=== PATIENT | female | born 2000 | race African-American/Black ===

== ENCOUNTER 2019-12-23 13:42 | Emergency (ER) | payer MEDICAID ==
[2019-12-23] MEDS ORDERED: Ondansetron 4 MG/2 ML SDV IVPUSH ONE (14:40)
[2019-12-23] MEDS ORDERED: Famotidine 20 MG/2 ML SDV IVPUSH ONE (14:40)
[2019-12-23] MEDS ORDERED: Sodium Chloride 0.9% 10 ML Syringe FLUSH PRN (14:40)
--- NOTE | 2019-12-23 14:44 | EDM.PDOC ---
ED HPI GENERAL MEDICAL PROBLEM - General Chief Complaint: Gastrointestinal Problem Stated Complaint: VOMTING/STOMACH PAIN Time Seen by Provider: 12/23/19 14:10 Source of Information: Reports: Patient History Limitations: Reports: No Limitations - History of Present Illness INITIAL COMMENTS - FREE TEXT/NARRATIVE: Patient is a 19-year-old female who presents with complaints of abdominal pain, vomiting, and watery diarrhea. She states that she has had intermittent symptoms of this over the last few weeks, with this episode of worsening symptoms starting 2 nights ago.. She does have epigastric abdominal pain. She states the just recently drove here from [place] and did not have a lot of fluids in the house. She has been drinking juices such as cranberry juice and orange juice. She did have a fever of 103.7 at home last night. She took ibuprofen for that as well as a shower and fever resolved. She is afebrile in the ER today and has not taken any medications thus far today. She is had no respiratory symptoms. She does complain of heartburn. States she has vomited 3 times today and it was bilious in nature. Epigastric Pain Score (Numeric/FACES): 5 - Related Data Allergies Allergy/AdvReac Type Severity Reaction Status Date / Time nitrofurantoin Allergy Hives Verified 12/23/19 14:05 [From Macrobid] shellfish derived Allergy Facial Verified 12/23/19 14:05 Swelling Home Meds: Home Meds . [No Known Home Meds] 12/23/19 [History] Past Medical History - Past Health History Medical/Surgical History: Denies Medical/Surgical History Social & Family History - Tobacco Use Smoking Status *Q: Never Smoker - Recreational Drug Use Recreational Drug Use: No ED ROS GENERAL - Review of Systems Review Of Systems: Comprehensive ROS is negative, except as noted in HPI. ED EXAM, GI/ABD - Physical Exam Exam: See Below Exam Limited By: No Limitations General Appearance: Alert, WD/WN, No Apparent Distress Respiratory/Chest: No Respiratory Distress, Lungs Clear, Normal Breath Sounds, No Accessory Muscle Use, Chest Non-Tender Cardiovascular: Normal Peripheral Pulses, Regular Rate, Rhythm, No Edema, No Gallop, No JVD, No Murmur, No Rub GI/Abdominal Exam: Normal Bowel Sounds, Soft, No Organomegaly, No Distention, No Abnormal Bruit, No Mass, Pelvis Stable, Tender (Epigastric tenderness). No: Guarding, Rigid, Rebound Neurological: Alert, Oriented, CN II-XII Intact, Normal Cognition, Normal Gait, Normal Reflexes, No Motor/Sensory Deficits Psychiatric: Normal Affect, Normal Mood Skin Exam: Warm, Dry, Intact, Normal Color, No Rash Course - Vital Signs Last Recorded V/S: Last Vital Signs Temp 98.1 F 12/23/19 14:01 Pulse 69 12/23/19 14:01 Resp 16 12/23/19 14:01 BP 124/67 12/23/19 14:01 Pulse Ox 99 12/23/19 14:01 - Orders/Labs/Meds Orders: Active Orders 24 hr Category Date Time Status Peripheral IV Care [RC] . DIRECTED Care 12/23/19 14:40 Active Sodium Chloride 0.9% [Normal Saline] 1,000 ml Med 12/23/19 14:45 Active IV ASDIRECTED Sodium Chloride 0.9% [Saline Flush] Med 12/23/19 14:40 Active 10 ml FLUSH ASDIRECTED PRN Peripheral IV Insertion Adult [OM.PC] Stat Oth 12/23/19 14:39 Ordered Medication Orders Sodium Chloride (Normal Saline) 1,000 mls @ 999 mls/hr IV ASDIRECTED PATY Last Admin: 12/23/19 15:06 Dose: 999 mls/hr Sodium Chloride (Saline Flush) 10 ml FLUSH ASDIRECTED PRN PRN Reason: Keep Vein Open Last Admin: 12/23/19 15:06 Dose: 10 ml Labs: Laboratory Tests 12/23/19 12/23/19 12/23/19 Range/Units 14:00 14:00 15:05 WBC 5.55 (3.98-10.04) K/mm3 RBC 4.17 (3.98-5.22) M/mm3 Hgb 11.6 (11.2-15.7) gm/dl Hct 36.3 (34.1-44.9) % MCV 87.1 (79.4-94.8) fl MCH 27.8 (25.6-32.2) pg MCHC 32.0 L (32.2-35.5) g/dl RDW Std Deviation 48.6 H (36.4-46.3) fL Plt Count 338 (182-369) K/mm3 MPV 9.9 (9.4-12.3) fl Neut % (Auto) 47.4 (34.0-71.1) % Lymph % (Auto) 45.9 (19.3-51.7) % [place] % (Auto) 4.9 (4.7-12.5) % Eos % (Auto) 1.6 (0.7-5.8) Baso % (Auto) 0.2 (0.1-1.2) % Neut # (Auto) 2.63 (1.56-6.13) K/mm3 Lymph # (Auto) 2.55 (1.18-3.74) K/mm3 [place] # (Auto) 0.27 (0.24-0.36) K/mm3 Eos # (Auto) 0.09 (0.04-0.36) K/mm3 Baso # (Auto) 0.01 (0.01-0.08) K/mm3 Manual Slide Review Abnormal smear Sodium (136-145) mEq/L Potassium (3.5-5.1) mEq/L Chloride (98-107) mEq/L Carbon Dioxide (21-32) mEq/L Anion Gap (5-15) BUN (7-18) mg/dL Creatinine (0.55-1.02) mg/dL Est Cr Clr Drug Dosing mL/min Estimated GFR (MDRD) (>60) mL/min BUN/Creatinine Ratio (14-18) Glucose (74-106) mg/dL Calcium (8.5-10.1) mg/dL Total Bilirubin (0.2-1.0) mg/dL AST (15-37) U/L ALT (14-59) U/L Alkaline Phosphatase (46-116) U/L C-Reactive Protein (<1.0) mg/dL Total Protein (6.4-8.2) g/dl Albumin (3.4-5.0) g/dl Globulin gm/dL Albumin/Globulin Ratio (1-2) Lipase (73-393) U/L Urine Color Yellow (Yellow) Urine Appearance Clear (Clear) Urine pH 7.0 (5.0-8.0) Ur Specific [place] 1.025 (1.005-1.030) Urine Protein Negative (Negative) Urine Glucose (UA) Negative (Negative) Urine Ketones Negative (Negative) Urine Occult Blood Negative (Negative) Urine Nitrite Negative (Negative) Urine Bilirubin Negative (Negative) Urine Urobilinogen 2.0 H (0.2-1.0) Ur Leukocyte Esterase Negative (Negative) Urine RBC 0-5 (0-5) /hpf Urine WBC 0-5 (0-5) /hpf Ur Epithelial Cells 0-5 (0-5) /hpf Urine Bacteria Moderate H (FEW) /hpf Urine Mucus Moderate H (FEW) /hpf Urine HCG, Qual Negative (NEGATIVE) 12/23/19 Range/Units 15:05 WBC (3.98-10.04) K/mm3 RBC (3.98-5.22) M/mm3 Hgb (11.2-15.7) gm/dl Hct (34.1-44.9) % MCV (79.4-94.8) fl MCH (25.6-32.2) pg MCHC (32.2-35.5) g/dl RDW Std Deviation (36.4-46.3) fL Plt Count (182-369) K/mm3 MPV (9.4-12.3) fl Neut % (Auto) (34.0-71.1) % Lymph % (Auto) (19.3-51.7) % [place] % (Auto) (4.7-12.5) % Eos % (Auto) (0.7-5.8) Baso % (Auto) (0.1-1.2) % Neut # (Auto) (1.56-6.13) K/mm3 Lymph # (Auto) (1.18-3.74) K/mm3 [place] # (Auto) (0.24-0.36) K/mm3 Eos # (Auto) (0.04-0.36) K/mm3 Baso # (Auto) (0.01-0.08) K/mm3 Manual Slide Review Sodium 142 (136-145) mEq/L Potassium 3.8 (3.5-5.1) mEq/L Chloride 104 (98-107) mEq/L Carbon Dioxide 28 (21-32) mEq/L Anion Gap 13.8 (5-15) BUN 11 (7-18) mg/dL Creatinine 0.9 (0.55-1.02) mg/dL Est Cr Clr Drug Dosing 96.15 mL/min Estimated GFR (MDRD) > 60 (>60) mL/min BUN/Creatinine Ratio 12.2 L (14-18) Glucose 94 (74-106) mg/dL Calcium 8.6 (8.5-10.1) mg/dL Total Bilirubin 0.3 (0.2-1.0) mg/dL AST 18 (15-37) U/L ALT 33 (14-59) U/L Alkaline Phosphatase 72 (46-116) U/L C-Reactive Protein 2.4 H* (<1.0) mg/dL Total Protein 8.4 H (6.4-8.2) g/dl Albumin 3.5 (3.4-5.0) g/dl Globulin 4.9 gm/dL Albumin/Globulin Ratio 0.7 L (1-2) Lipase 92 (73-393) U/L Urine Color (Yellow) Urine Appearance (Clear) Urine pH (5.0-8.0) Ur Specific [place] (1.005-1.030) Urine Protein (Negative) Urine Glucose (UA) (Negative) Urine Ketones (Negative) Urine Occult Blood (Negative) Urine Nitrite (Negative) Urine Bilirubin (Negative) Urine Urobilinogen (0.2-1.0) Ur Leukocyte Esterase (Negative) Urine RBC (0-5) /hpf Urine WBC (0-5) /hpf Ur Epithelial Cells (0-5) /hpf Urine Bacteria (FEW) /hpf Urine Mucus (FEW) /hpf Urine HCG, Qual (NEGATIVE) Meds: Medications Generic Name Dose Route Start Last Admin Trade Name Freq PRN Reason Stop Dose Admin Sodium Chloride 1,000 mls @ 999 mls/hr 12/23/19 14:45 12/23/19 15:06 Normal Saline IV 999 mls/hr ASDIRECTED PATY Administration Sodium Chloride 10 ml 12/23/19 14:40 12/23/19 15:06 Saline Flush FLUSH 10 ml ASDIRECTED PRN Administration Keep Vein Open Discontinued Medications Generic Name Dose Route Start Last Admin Trade Name Freq PRN Reason Stop Dose Admin Famotidine 20 mg 12/23/19 14:40 12/23/19 15:10 Pepcid IVPUSH 12/23/19 14:41 20 mg ONETIME ONE Administration Ondansetron HCl 4 mg 12/23/19 14:40 12/23/19 15:06 Zofran IVPUSH 12/23/19 14:41 4 mg ONETIME ONE Administration - Re-Assessments/Exams Free Text/Narrative Re-Assessment/Exam: 12/23/19 15:50 Patient's work-up was grossly unremarkable. Hematology was normal. Abdomen x- ray showed a small calcification in the right pelvis, however patient has had no symptoms that would be consistent with that of a kidney stone. Urinalysis did not have any "blood present. There is no urinary tract infection. Discussed with patient that she is likely suffering from a viral gastroenteritis. Recommend clear liquid diet for the next 24 hours and then advance as tolerated. I will send a prescription for Zofran to [place] [facility] and [facility]. She will pick this up tomorrow. Discharge instructions as documented. Departure - Departure Time of Disposition: 15:51 Disposition: Home, Self-Care 01 Condition: Fair Clinical Impression: Gastroenteritis - Discharge Information *PRESCRIPTION DRUG MONITORING PROGRAM REVIEWED*: No *COPY OF PRESCRIPTION DRUG MONITORING REPORT IN PATIENT TAI: No Instructions: Viral Gastroenteritis, Adult, [id number] Forms: ED Department Discharge, ED Return to Work/School Form Additional Instructions: You were seen in the emergency department today for nausea, vomiting, and upper abdominal pain. Your work-up included a urinalysis, blood work, and an x-ray of your abdomen. Your work-up was found to be normal. As we discussed you are likely suffering from a viral gastroenteritis. Recommend a clear liquid diet for the next 24 to 48 hours and then advance as tolerated. I would avoid any fruit juice or dairy products until your symptoms have completely resolved. A prescription for Zofran for nausea has been sent to [place] [facility] in [facility]. Use this medication as needed for any nausea. If you continue to have these symptoms intermittently, I would recommend that you follow-up with a primary care provider in the clinic for ongoing management. The number to schedule an appointment with them is [phone]. Return to the ER as needed. Sepsis Event Note - Evaluation Sepsis Screening Result: No Definite Risk - Focused Exam Vital Signs: Vital Signs Temp Pulse Resp BP Pulse Ox 12/23/19 14:01 98.1 F 69 16 124/67 99 Date Exam was Performed: 12/23/19 Time Exam was Performed: 15:50 - My Orders Last 24 Hours: My Active Orders 12/23/19 14:39 Peripheral IV Insertion Adult [OM.PC] Stat 12/23/19 14:40 Peripheral IV Care [RC] . DIRECTED Sodium Chloride 0.9% [Saline Flush] 10 ml FLUSH ASDIRECTED PRN 12/23/19 14:45 Sodium Chloride 0.9% [Normal Saline] 1,000 ml IV ASDIRECTED - Assessment/Plan Last 24 Hours: My Active Orders 12/23/19 14:39 Peripheral IV Insertion Adult [OM.PC] Stat 12/23/19 14:40 Peripheral IV Care [RC] . DIRECTED Sodium Chloride 0.9% [Saline Flush] 10 ml FLUSH ASDIRECTED PRN 12/23/19 14:45 Sodium Chloride 0.9% [Normal Saline] 1,000 ml IV ASDIRECTED
[2019-12-23] MEDS ORDERED: Sodium Chloride 0.9% 1,000 ML IV SCH (14:45)
--- NOTE | 2019-12-23 15:38 | CR ---
Abdomen: Supine and upright views the abdomen were obtained. Bowel gas pattern appears normal. Small calcification is seen within the right pelvis. Please correlate if patient has any symptoms of obstructing ureteral stone. No soft tissue abnormality is seen. Bony structures are unremarkable. Impression: 1. Small calcification within the right pelvis. Please correlate if patient has any symptoms of obstructing ureteral stone. 2. 2 view abdominal study is otherwise unremarkable. Diagnostic code #2 Study was dictated in MDT
== END 2019-12-23 16:25 | disposition home or self-care (01) ==
LOC: JD.ED 13:42
DX: K52.9 Noninfective gastroenteritis and colitis, unspecified (principal); Z91.013 Allergy to seafood; Z88.5 Allergy status to narcotic agent
CPT/HCPCS: 36415; 74019; 80053; 81001; 81025; 83690; 85025; 86140; 96361; 96374; 96375; 99284; J2405; J3490; J7030

== ENCOUNTER 2020-03-21 00:31 | Emergency (ER) | payer SELFPAY ==
--- NOTE | 2020-03-21 02:11 | EDM.PDOC ---
ED HPI GENERAL MEDICAL PROBLEM - General Chief Complaint: General Stated Complaint: THROWING UP AND RING STUCK ON RIGHT HAND Time Seen by Provider: 03/21/20 00:57 Source of Information: Reports: Patient History Limitations: Reports: No Limitations - History of Present Illness INITIAL COMMENTS - FREE TEXT/NARRATIVE: TRIAGE NOTE -- pt has her ring stuck to her right ring finger, she was trying to take it out but unsuccessful. pt also c/o on and off abdominal pain to LLQ associated with nausea & vomiting, [ End ] Patient says while she was waiting to be seen for her ring stuck on her right hand that she wished to be evaluated for abdominal pain which is been bothering her for the past week or so. There is occasional nausea and vomiting associated with it. The pain complained of seems more like discomfort. No risk factors identified. Non-smoker. No previous surgeries. No medications or underlying conditions that are identified. She has not had any treatment or evaluation or any measure to moderate symptoms prior to arrival. Left Lower Abdomen Pain Score (Numeric/FACES): 5 - Related Data Allergies Allergy/AdvReac Type Severity Reaction Status Date / Time nitrofurantoin Allergy Severe Hives Verified 03/21/20 00:46 [From Macrobid] nut - unspecified Allergy Severe Bronchospas Verified 03/21/20 00:47 ms shellfish derived Allergy Severe Facial Verified 03/21/20 00:46 Swelling Home Meds: Home Meds . [No Known Home Meds] 12/23/19 [History] Past Medical History - Past Health History Medical/Surgical History: Denies Medical/Surgical History Genitourinary History: Reports: UTI, Recurrent Social & Family History - Tobacco Use Smoking Status *Q: Never Smoker - Recreational Drug Use Recreational Drug Use: No ED ROS GENERAL - Review of Systems Review Of Systems: Comprehensive ROS is negative, except as noted in HPI. ED EXAM, GENERAL - Physical Exam Exam: See Below Exam Limited By: No Limitations General Appearance: Alert, WD/WN, No Apparent Distress Eye Exam: Bilateral Eye: EOMI, PERRL Ears: Normal External Exam Nose: Normal Inspection Throat/Mouth: Normal Inspection Head: Atraumatic, Normocephalic Respiratory/Chest: No Respiratory Distress, Lungs Clear, Normal Breath Sounds Cardiovascular: Regular Rate, Rhythm GI/Abdominal: Soft, Tender (Mild diffuse tenderness right lower abdomen). No: Guarding, Rigid, Rebound Back Exam: Normal Inspection Extremities: Normal Inspection (Except for ring on the right fourth finger with some very mild edema distally otherwise the digit is normal.) Neurological: Alert, Oriented, Normal Cognition, No Motor/Sensory Deficits Psychiatric: Normal Affect, Normal Mood Skin Exam: Warm, Dry Course - Vital Signs Last Recorded V/S: Last Vital Signs Temp 36.4 C 03/21/20 00:42 Pulse 77 03/21/20 00:42 Resp 16 03/21/20 00:42 BP 102/69 03/21/20 00:42 Pulse Ox 98 03/21/20 00:42 - Orders/Labs/Meds Orders: Active Orders 24 hr Category Date Time Status CULTURE URINE [RM] Stat Lab 03/21/20 01:03 Received Labs: Laboratory Tests 03/21/20 03/21/20 03/21/20 Range/Units 01:03 01:03 01:32 WBC 8.56 (3.98-10.04) K/mm3 RBC 4.33 (3.98-5.22) M/mm3 Hgb 11.7 (11.2-15.7) gm/dl Hct 37.0 (34.1-44.9) % MCV 85.5 (79.4-94.8) fl MCH 27.0 (25.6-32.2) pg MCHC 31.6 L (32.2-35.5) g/dl RDW Std Deviation 51.8 H (36.4-46.3) fL Plt Count 397 H (182-369) K/mm3 MPV 9.8 (9.4-12.3) fl Neutrophils % (Manual) 61 H (40-60) % Band Neutrophils % 0 (0-10) % Lymphocytes % (Manual) 37 (20-40) % Atypical Lymphs % 0 % Monocytes % (Manual) 1 L (2-10) % Eosinophils % (Manual) 1 (0.7-5.8) % Basophils % (Manual) 0 L (0.1-1.2) Platelet Estimate Adequate RBC Morph Comment Normal Sodium (136-145) mEq/L Potassium (3.5-5.1) mEq/L Chloride (98-107) mEq/L Carbon Dioxide (21-32) mEq/L Anion Gap (5-15) BUN (7-18) mg/dL Creatinine (0.55-1.02) mg/dL Est Cr Clr Drug Dosing mL/min Estimated GFR (MDRD) (>60) mL/min BUN/Creatinine Ratio (14-18) Glucose (74-106) mg/dL Calcium (8.5-10.1) mg/dL Total Bilirubin (0.2-1.0) mg/dL AST (15-37) U/L ALT (14-59) U/L Alkaline Phosphatase (46-116) U/L Total Protein (6.4-8.2) g/dl Albumin (3.4-5.0) g/dl Globulin gm/dL Albumin/Globulin Ratio (1-2) Lipase (73-393) U/L Urine Color Yellow (Yellow) Urine Appearance Clear (Clear) Urine pH 7.0 (5.0-8.0) Ur Specific [place] 1.025 (1.005-1.030) Urine Protein Negative (Negative) Urine Glucose (UA) Negative (Negative) Urine Ketones Negative (Negative) Urine Occult Blood Negative (Negative) Urine Nitrite Negative (Negative) Urine Bilirubin Negative (Negative) Urine Urobilinogen 0.2 (0.2-1.0) Ur Leukocyte Esterase 1+ H (Negative) Urine RBC 5-10 H (0-5) /hpf Urine WBC 50-75 H (0-5) /hpf Ur Epithelial Cells 0-5 (0-5) /hpf Urine Bacteria Few (FEW) /hpf Urine Mucus Few (FEW) /hpf Urine HCG, Qual Negative (NEGATIVE) 03/21/20 Range/Units 01:32 WBC (3.98-10.04) K/mm3 RBC (3.98-5.22) M/mm3 Hgb (11.2-15.7) gm/dl Hct (34.1-44.9) % MCV (79.4-94.8) fl MCH (25.6-32.2) pg MCHC (32.2-35.5) g/dl RDW Std Deviation (36.4-46.3) fL Plt Count (182-369) K/mm3 MPV (9.4-12.3) fl Neutrophils % (Manual) (40-60) % Band Neutrophils % (0-10) % Lymphocytes % (Manual) (20-40) % Atypical Lymphs % % Monocytes % (Manual) (2-10) % Eosinophils % (Manual) (0.7-5.8) % Basophils % (Manual) (0.1-1.2) Platelet Estimate RBC Morph Comment Sodium 138 (136-145) mEq/L Potassium 3.8 (3.5-5.1) mEq/L Chloride 103 (98-107) mEq/L Carbon Dioxide 28 (21-32) mEq/L Anion Gap 10.8 (5-15) BUN 11 (7-18) mg/dL Creatinine 1.0 (0.55-1.02) mg/dL Est Cr Clr Drug Dosing 86.54 mL/min Estimated GFR (MDRD) > 60 (>60) mL/min BUN/Creatinine Ratio 11.0 L (14-18) Glucose 101 (74-106) mg/dL Calcium 8.9 (8.5-10.1) mg/dL Total Bilirubin 0.3 (0.2-1.0) mg/dL AST 23 (15-37) U/L ALT 23 (14-59) U/L Alkaline Phosphatase 66 (46-116) U/L Total Protein 8.4 H (6.4-8.2) g/dl Albumin 3.5 (3.4-5.0) g/dl Globulin 4.9 gm/dL Albumin/Globulin Ratio 0.7 L (1-2) Lipase 98 (73-393) U/L Urine Color (Yellow) Urine Appearance (Clear) Urine pH (5.0-8.0) Ur Specific [place] (1.005-1.030) Urine Protein (Negative) Urine Glucose (UA) (Negative) Urine Ketones (Negative) Urine Occult Blood (Negative) Urine Nitrite (Negative) Urine Bilirubin (Negative) Urine Urobilinogen (0.2-1.0) Ur Leukocyte Esterase (Negative) Urine RBC (0-5) /hpf Urine WBC (0-5) /hpf Ur Epithelial Cells (0-5) /hpf Urine Bacteria (FEW) /hpf Urine Mucus (FEW) /hpf Urine HCG, Qual (NEGATIVE) - Re-Assessments/Exams Free Text/Narrative Re-Assessment/Exam: 03/21/20 05:48 The patient has had an evaluation of her abdominal discomfort without any salient abnormal findings in terms of presentation, exam, or labs. She is able to be discharged to have follow-up with primary. The problem is that an effort had been made to remove a ring from the patient's right fourth finger. There had been sufficient manipulation that the distal part of the finger has become edematous. The ring is apparently steel and could not be cut. Efforts are being made to find a tool that is able to cut through the ring and it may require a search during the day shift to find something perhaps in the operating room that we will do the job. Free Text/Narrative Re-Assessment/Exam: 03/21/20 06:51 Tyrese came to the emergency department to see another patient and wanted to try taking the ring off. We are grateful to her as she was successful in removing the ring. The patient is discharged for follow-up with primary. Departure - Departure Time of Disposition: 06:52 Disposition: Home, Self-Care 01 Condition: Good Clinical Impression: Abdominal discomfort Foreign body of finger of right hand Qualifiers: Encounter type: initial encounter Qualified Code(s): S60.459A - Superficial foreign body of unspecified finger, initial encounter - Discharge Information *PRESCRIPTION DRUG MONITORING PROGRAM REVIEWED*: Not Applicable *COPY OF PRESCRIPTION DRUG MONITORING REPORT IN PATIENT TAI: Not Applicable Referrals: PCP,None [Primary Care Provider] - Forms: ED Department Discharge Additional Instructions: Been seen for abdominal discomfort and nausea. We have not come up with any abnormal findings. Please allow your primary physician to address this. Referral might be made to surgery GI or gynecology. Dr. Xiong has graciously come to the ER and was able to remove the ring. Sepsis Event Note (ED) - Evaluation Sepsis Screening Result: No Definite Risk - Focused Exam Vital Signs: Vital Signs Temp Pulse Resp BP Pulse Ox 03/21/20 00:42 36.4 C 77 16 102/69 98 - My Orders Last 24 Hours: My Active Orders 03/21/20 01:03 CULTURE URINE [RM] Stat - Assessment/Plan Last 24 Hours: My Active Orders 03/21/20 01:03 CULTURE URINE [RM] Stat
== END 2020-03-21 07:02 | disposition home or self-care (01) ==
LOC: JD.ED 00:31
DX: S60.454A Superficial foreign body of right ring finger, initial encounter (principal); R10.32 Left lower quadrant pain; Z88.1 Allergy status to other antibiotic agents; Z91.018 Allergy to other foods; Z91.013 Allergy to seafood; W45.8XXA Other foreign body or object entering through skin, initial encounter
CPT/HCPCS: 36415; 80053; 81001; 81025; 83690; 85007; 85027; 87086; 87088; 87186; 99283; 99284

== ENCOUNTER 2020-05-11 11:17 | Day surgery (SDC) | payer MEDICAID, OTHER ==
[2020-05-11] MEDS ORDERED: Sodium Chloride 0.9% 1,000 ML IV STA (12:05)
[2020-05-11] MEDS ORDERED: Ondansetron 4 MG/2 ML SDV IVPUSH ONE (12:05)
[2020-05-11] MEDS ORDERED: Sodium Chloride 0.9% 10 ML Syringe FLUSH PRN ×2 (12:05→12:45)
--- NOTE | 2020-05-11 12:09 | EDM.PDOC ---
<Cholo Matos - Last Filed: 05/11/20 12:04> ED HPI GENERAL MEDICAL PROBLEM - General Chief Complaint: Abdominal Pain Stated Complaint: VOMITING/STOMACH CRAMPS/DIZZY Time Seen by Provider: 05/11/20 11:26 Source of Information: Reports: Patient History Limitations: Reports: No Limitations - History of Present Illness INITIAL COMMENTS - FREE TEXT/NARRATIVE: Kath is a 19 YO female that presents to the ED with RLQ abdominal pain. Pain has been occurring for the past week and is constant in nature. Described as a cramping sensation and rated at a 7/10. Nothing makes the pain worse but has noted an increase during urination. Radiation to the LLQ. Other complaints at today's visit include nausea/vomiting for the past three days, multiple episodes of feeling dizzy with "floating stars" in her vision, increased frequency in urination, and an episode brownish mucous vaginal discharge three weeks ago. Vomiting is being described as yellow in color. Denies loss of consciousness, fever, chills, shortness of breath, chest pain, diarrhea, constipation, dysuria, incomplete voiding of urine, hematuria. LMP was two weeks ago and she is monogamous with her fiance. Onset: Gradual Onset Date: 05/04/20 Duration: Week(s): Location: Reports: Abdomen Quality: Reports: Ache Improves with: Reports: None Worsens with: Reports: None Lower Abdominal Pain Score (Numeric/FACES): 7 - Related Data Allergies Allergy/AdvReac Type Severity Reaction Status Date / Time nitrofurantoin Allergy Severe Hives Verified 05/11/20 11:39 [From Macrobid] nut - unspecified Allergy Severe Bronchospas Verified 05/11/20 11:39 ms shellfish derived Allergy Severe Facial Verified 05/11/20 11:39 Swelling Home Meds: Home Meds Calcium Carbonate [Tums] 2 tab PO DAILY PRN 05/11/20 [History] Past Medical History - Past Health History Medical/Surgical History: Denies Medical/Surgical History Genitourinary History: Reports: UTI, Recurrent ED ROS GENERAL - Review of Systems Review Of Systems: See Below Constitutional: Denies: Fever, Chills, Decreased Appetite HEENT: Reports: Vision Change (3-4 episodes of "seeing stars" over the last two days. ). Denies: Ear Pain, Eye Pain, Hearing Loss Respiratory: Denies: Shortness of Breath, Cough Cardiovascular: Reports: Lightheadedness. Denies: Chest Pain, Syncope GI/Abdominal: Reports: Abdominal Pain (Predominantly in RLQ), Nausea, Vomiting ( Multiple episodes in the last three days. ). Denies: Anorexia, Constipation, Diarrhea, Decreased Appetite : Reports: Discharge (Brown mucous discharge about three weeks ago. ), Frequency (Increased frequency at night.), Pain (Discomfort in suprapubic region.). Denies: Dysuria, Flank Pain, Hematuria, Irregular Menses, Urgency, Urinary Retention Neurological: Reports: Dizziness ED EXAM, GI/ABD - Physical Exam Exam: See Below Exam Limited By: No Limitations General Appearance: Alert, No Apparent Distress Head: Atraumatic, Normocephalic Respiratory/Chest: No Respiratory Distress, Lungs Clear, Normal Breath Sounds, No Accessory Muscle Use, Chest Non-Tender Cardiovascular: Regular Rate, Rhythm, No Gallop, No JVD, No Murmur, No Rub GI/Abdominal Exam: Normal Bowel Sounds, Soft, No Distention, Tender (Tenderness in RLQ.) Back Exam: No: CVA Tenderness (L), CVA Tenderness (R) Neurological: Alert, Oriented, Normal Cognition Skin Exam: Warm, Dry, Normal Color Departure - Departure Disposition: DC/Tfer to [facility] Clinical Impression: Appendicitis Qualifiers: Appendicitis type: acute appendicitis Acute appendicitis type: with localized peritonitis Appendicitis gangrene presence: without gangrene Appendicitis perforation presence: without perforation Appendicitis abscess presence: without abscess Qualified Code(s): K35.30 - Acute appendicitis with localized peritonitis, without perforation or gangrene - Discharge Information Referrals: PCP,None [Primary Care Provider] - Forms: ED Department Discharge Sepsis Event Note (ED) - Evaluation Sepsis Screening Result: No Definite Risk <Sam Merchant - Last Filed: 05/11/20 14:43> Course - Vital Signs Last Recorded V/S: Last Vital Signs Temp 96.9 F 05/11/20 11:33 Pulse 78 05/11/20 11:33 Resp 16 05/11/20 11:33 BP 126/75 05/11/20 11:33 Pulse Ox 99 05/11/20 11:33 - Orders/Labs/Meds Orders: Active Orders 24 hr Category Date Time Status Peripheral IV Care [RC] . DIRECTED Care 05/11/20 12:06 Active Ertapenem [INVanz] 1 gm Med 05/11/20 14:37 Active Sodium Chloride 0.9% [Normal Saline] 50 ml IV ONETIME HYDROmorphone [Dilaudid] Med 05/11/20 14:39 Once 0.5 mg IVPUSH ONETIME ONE Sodium Chloride 0.9% [Saline Flush] Med 05/11/20 12:05 Active 10 ml FLUSH ASDIRECTED PRN Sodium Chloride 0.9% [Saline Flush] Med 05/11/20 12:45 Active 10 ml FLUSH ONETIME PRN ED Antiemetic Medication Reflex [OM.PC] Stat Oth 05/11/20 12:06 Ordered Peripheral IV Insertion Adult [OM.PC] Stat Oth 05/11/20 12:05 Ordered Medication Orders Ertapenem 1 gm/ Sodium (Chloride) 50 mls @ 100 mls/hr IV ONETIME ONE Stop: 05/11/20 15:06 Sodium Chloride (Saline Flush) 10 ml FLUSH ASDIRECTED PRN PRN Reason: Keep Vein Open Last Admin: 05/11/20 12:40 Dose: 10 ml Documented by: KAPIL Sodium Chloride (Saline Flush) 10 ml FLUSH ONETIME PRN PRN Reason: IV FLUSH Last Admin: 05/11/20 14:06 Dose: 10 ml Documented by: STEVENSON Labs: Laboratory Tests 05/11/20 05/11/20 05/11/20 Range/Units 11:37 11:37 12:20 WBC 7.02 (3.98-10.04) K/mm3 RBC 4.33 (3.98-5.22) M/mm3 Hgb 11.5 (11.2-15.7) gm/dl Hct 36.7 (34.1-44.9) % MCV 84.8 (79.4-94.8) fl MCH 26.6 (25.6-32.2) pg MCHC 31.3 L (32.2-35.5) g/dl RDW Std Deviation 49.1 H (36.4-46.3) fL Plt Count 385 H (182-369) K/mm3 MPV 9.9 (9.4-12.3) fl Neut % (Auto) 56.0 (34.0-71.1) % Lymph % (Auto) 35.3 (19.3-51.7) % [place] % (Auto) 7.0 (4.7-12.5) % Eos % (Auto) 1.3 (0.7-5.8) Baso % (Auto) 0.3 (0.1-1.2) % Neut # (Auto) 3.93 (1.56-6.13) K/mm3 Lymph # (Auto) 2.48 (1.18-3.74) K/mm3 [place] # (Auto) 0.49 H (0.24-0.36) K/mm3 Eos # (Auto) 0.09 (0.04-0.36) K/mm3 Baso # (Auto) 0.02 (0.01-0.08) K/mm3 Sodium (136-145) mEq/L Potassium (3.5-5.1) mEq/L Chloride (98-107) mEq/L Carbon Dioxide (21-32) mEq/L Anion Gap (5-15) BUN (7-18) mg/dL Creatinine (0.55-1.02) mg/dL Est Cr Clr Drug Dosing mL/min Estimated GFR (MDRD) (>60) mL/min BUN/Creatinine Ratio (14-18) Glucose (74-106) mg/dL Calcium (8.5-10.1) mg/dL Total Bilirubin (0.2-1.0) mg/dL AST (15-37) U/L ALT (14-59) U/L Alkaline Phosphatase (46-116) U/L Total Protein (6.4-8.2) g/dl Albumin (3.4-5.0) g/dl Globulin gm/dL Albumin/Globulin Ratio (1-2) Lipase (73-393) U/L Urine Color Yellow (Yellow) Urine Appearance Clear (Clear) Urine pH 7.0 (5.0-8.0) Ur Specific [place] 1.025 (1.005-1.030) Urine Protein Negative (Negative) Urine Glucose (UA) Negative (Negative) Urine Ketones Negative (Negative) Urine Occult Blood Negative (Negative) Urine Nitrite Negative (Negative) Urine Bilirubin Negative (Negative) Urine Urobilinogen 1.0 (0.2-1.0) Ur Leukocyte Esterase Negative (Negative) Urine RBC Not seen (0-5) /hpf Urine WBC 0-5 (0-5) /hpf Ur Squamous Epith Cells 0-5 (0-5) /hpf Urine Bacteria Few (FEW) /hpf Urine Mucus Not seen (FEW) /hpf Urine HCG, Qual Negative (NEGATIVE) 05/11/20 Range/Units 12:20 WBC (3.98-10.04) K/mm3 RBC (3.98-5.22) M/mm3 Hgb (11.2-15.7) gm/dl Hct (34.1-44.9) % MCV (79.4-94.8) fl MCH (25.6-32.2) pg MCHC (32.2-35.5) g/dl RDW Std Deviation (36.4-46.3) fL Plt Count (182-369) K/mm3 MPV (9.4-12.3) fl Neut % (Auto) (34.0-71.1) % Lymph % (Auto) (19.3-51.7) % [place] % (Auto) (4.7-12.5) % Eos % (Auto) (0.7-5.8) Baso % (Auto) (0.1-1.2) % Neut # (Auto) (1.56-6.13) K/mm3 Lymph # (Auto) (1.18-3.74) K/mm3 [place] # (Auto) (0.24-0.36) K/mm3 Eos # (Auto) (0.04-0.36) K/mm3 Baso # (Auto) (0.01-0.08) K/mm3 Sodium 137 (136-145) mEq/L Potassium 3.8 (3.5-5.1) mEq/L Chloride 101 (98-107) mEq/L Carbon Dioxide 28 (21-32) mEq/L Anion Gap 11.8 (5-15) BUN 9 (7-18) mg/dL Creatinine 0.8 (0.55-1.02) mg/dL Est Cr Clr Drug Dosing 108.17 mL/min Estimated GFR (MDRD) > 60 (>60) mL/min BUN/Creatinine Ratio 11.3 L (14-18) Glucose 100 (74-106) mg/dL Calcium 9.2 (8.5-10.1) mg/dL Total Bilirubin 0.6 (0.2-1.0) mg/dL AST 16 (15-37) U/L ALT 34 (14-59) U/L Alkaline Phosphatase 75 (46-116) U/L Total Protein 8.3 H (6.4-8.2) g/dl Albumin 3.3 L (3.4-5.0) g/dl Globulin 5.0 gm/dL Albumin/Globulin Ratio 0.7 L (1-2) Lipase 74 (73-393) U/L Urine Color (Yellow) Urine Appearance (Clear) Urine pH (5.0-8.0) Ur Specific [place] (1.005-1.030) Urine Protein (Negative) Urine Glucose (UA) (Negative) Urine Ketones (Negative) Urine Occult Blood (Negative) Urine Nitrite (Negative) Urine Bilirubin (Negative) Urine Urobilinogen (0.2-1.0) Ur Leukocyte Esterase (Negative) Urine RBC (0-5) /hpf Urine WBC (0-5) /hpf Ur Squamous Epith Cells (0-5) /hpf Urine Bacteria (FEW) /hpf Urine Mucus (FEW) /hpf Urine HCG, Qual (NEGATIVE) Meds: Medications Generic Name Dose Route Start Last Admin Trade Name Freq PRN Reason Stop Dose Admin Ertapenem 1 gm/ Sodium 50 mls @ 100 mls/hr 05/11/20 14:37 Chloride IV 05/11/20 15:06 ONETIME ONE Sodium Chloride 10 ml 05/11/20 12:05 05/11/20 12:40 Saline Flush FLUSH 10 ml ASDIRECTED PRN Administration Keep Vein Open Sodium Chloride 10 ml 05/11/20 12:45 05/11/20 14:06 Saline Flush FLUSH 10 ml ONETIME PRN Administration IV FLUSH Discontinued Medications Generic Name Dose Route Start Last Admin Trade Name Freq PRN Reason Stop Dose Admin Diatrizoate Meglum/Diatrizoate Sod 120 ml 05/11/20 12:45 05/11/20 14:06 Gastrografin 37% PO 05/11/20 12:46 90 ml ONETIME ONE Administration Diphenhydramine HCl 50 mg 05/11/20 13:20 05/11/20 13:27 Benadryl IVPUSH 05/11/20 13:21 50 mg ONETIME ONE Administration Famotidine 20 mg 05/11/20 14:15 05/11/20 14:22 Pepcid IVPUSH 05/11/20 14:16 20 mg ONETIME ONE Administration Hydromorphone HCl 1 mg 05/11/20 12:07 05/11/20 13:24 Dilaudid IVPUSH 05/11/20 12:08 0.5 mg ONETIME ONE Administration Sodium Chloride 1,000 mls @ 1,000 mls/hr 05/11/20 12:05 05/11/20 12:29 Normal Saline IV 05/11/20 13:04 1,000 mls/hr .BOLUS STA Administration Iopamidol 100 ml 05/11/20 12:45 05/11/20 14:06 Isovue-300 (61%) IVPUSH 05/11/20 12:46 100 ml ONETIME ONE Administration Metoclopramide HCl 10 mg 05/11/20 13:32 05/11/20 13:46 Reglan IVPUSH 05/11/20 13:33 10 mg ONETIME ONE Administration Ondansetron HCl 4 mg 05/11/20 12:05 05/11/20 12:30 Zofran IVPUSH 05/11/20 12:06 4 mg ONETIME ONE Administration - Re-Assessments/Exams Free Text/Narrative Re-Assessment/Exam: 05/11/20 13:42 I examined the patient myself and I agree with Cholo's assessment and plan. I ordered an IV NS 1L bolus, zofran 4mg IV, dilaudid, labs UA and a CT of her abdomen and pelvis. 05/11/20 14:40 Her CBC and CMP look good. Her UA shows no UTI and her HCG is negative. Her CT shows early appendicitis. I called Dr Walton and he wanted me to give her invanz and he will come see her. She still has some pain so I ordered dilaudid 0.5mg IV. Departure - Departure Time of Disposition: 14:45 Condition: Fair Sepsis Event Note (ED) - Focused Exam Vital Signs: Vital Signs Temp Pulse Resp BP Pulse Ox 05/11/20 11:33 96.9 F 78 16 126/75 99 - My Orders Last 24 Hours: My Active Orders 05/11/20 12:05 Sodium Chloride 0.9% [Saline Flush] 10 ml FLUSH ASDIRECTED PRN Peripheral IV Insertion Adult [OM.PC] Stat 05/11/20 12:06 Peripheral IV Care [RC] . DIRECTED ED Antiemetic Medication Reflex [OM.PC] Stat 05/11/20 12:45 Sodium Chloride 0.9% [Saline Flush] 10 ml FLUSH ONETIME PRN 05/11/20 14:37 Ertapenem [INVanz] 1 gm Sodium Chloride 0.9% [Normal Saline] 50 ml IV ONETIME 05/11/20 14:39 HYDROmorphone [Dilaudid] 0.5 mg IVPUSH ONETIME ONE - Assessment/Plan Last 24 Hours: My Active Orders 05/11/20 12:05 Sodium Chloride 0.9% [Saline Flush] 10 ml FLUSH ASDIRECTED PRN Peripheral IV Insertion Adult [OM.PC] Stat 05/11/20 12:06 Peripheral IV Care [RC] . DIRECTED ED Antiemetic Medication Reflex [OM.PC] Stat 05/11/20 12:45 Sodium Chloride 0.9% [Saline Flush] 10 ml FLUSH ONETIME PRN 05/11/20 14:37 Ertapenem [INVanz] 1 gm Sodium Chloride 0.9% [Normal Saline] 50 ml IV ONETIME 05/11/20 14:39 HYDROmorphone [Dilaudid] 0.5 mg IVPUSH ONETIME ONE
[2020-05-11] MEDS: HYDROmorphone 1 MG/ML Syringe IVPUSH ONE ×2 (12:32→13:24)
[2020-05-11] MEDS ORDERED: Iopamidol 612 MG/ML 100 ML Bottle IVPUSH ONE (12:45)
[2020-05-11] MEDS ORDERED: Diatrizoate Meglumine/Diatrizoate Sodium 37% 120 ML Bottle PO ONE (12:45)
[2020-05-11] MEDS ORDERED: diphenhydrAMINE 50 MG/ML SDV IVPUSH ONE (13:20)
[2020-05-11] MEDS ORDERED: Metoclopramide 10 MG/2 ML SDV IVPUSH ONE (13:32)
[2020-05-11] MEDS ORDERED: Famotidine 20 MG/2 ML SDV IVPUSH ONE (14:15)
--- NOTE | 2020-05-11 14:25 | CT ---
CT abdomen and pelvis Technique: Multiple axial sections were obtained from above the dome of the diaphragm inferiorly through the pubic symphysis. Intravenous contrast was utilized. Oral contrast was also given. Findings: Appendix is seen which is slightly prominent in size. Very minimal haziness is noted around the appendix. Appendix measures about 1.0 cm in thickness. Findings are suspicious for early appendicitis if this matches clinically. Visualized lung bases show nothing acute. Liver contains no focal parenchymal abnormality. Gallbladder contains no calcified gallstones. Spleen appears normal. Adrenal glands show no nodule. Pancreas appears within normal limits. Kidneys show symmetric contrast enhancement without hydronephrosis or mass. Aorta shows no aneurysm. No retroperitoneal adenopathy or mesenteric abnormalities are seen. No pelvic mass or adenopathy is seen. No free fluid is appreciated. No bowel dilatation is seen. Mild increased stool within the colon is noted. Bone window settings were reviewed which shows no acute osseous finding. Impression: 1. Findings suspicious for early appendicitis. Please correlate if this matches patient's clinical symptoms. 2. Mild increased stool within the colon. 3. No additional abnormality is appreciated. Diagnostic code #5 This report was dictated in MDT
[2020-05-11] MEDS ORDERED: Ertapenem 1 GM in Sodium Chloride 0.9% 50 ML IV ONE (14:37)
[2020-05-11] MEDS ORDERED: HYDROmorphone 0.5 MG/0.5 ML Syringe IVPUSH ONE (14:39)
[2020-05-11] MEDS ORDERED: Lactated Ringers 1,000 ML ONE ×2 (16:34→17:49)
--- NOTE | 2020-05-11 16:41 | PCM.PREANE ---
Preanesthetic Assessment - Procedure Proposed Procedure: lap appy - Anesthesia/Transfusion/Family Hx Anesthesia History: No Prior Anesthesia Family History of Anesthesia Reaction: No Transfusion History: No Prior Transfusion(s) - Review of Systems General: No Symptoms Pulmonary: No Symptoms Cardiovascular: Chest Pain (yesterday- heart burn ) Gastrointestinal: Abdominal Pain (3-4 days) Neurological: No Symptoms - Physical Assessment NPO Status Date: 05/11/20 NPO Status Time: 09:00 Vital Signs: Last Vital Signs Temp 96.9 F 05/11/20 11:33 Pulse 78 05/11/20 11:33 Resp 16 05/11/20 11:33 BP 126/75 05/11/20 11:33 Pulse Ox 99 05/11/20 11:33 Height: 5 ft 7 in Weight: 98.43 kg ASA Class: 2E Mental Status: Alert & Oriented x3 Airway Class: Mallampati = 1 Dentition: Reports: Normal Dentition Thyro-Mental Finger Breadths: 3 Mouth Opening Finger Breadths: 3 ROM/Head Extension: Full Lungs: Clear to Auscultation, Normal Respiratory Effort Cardiovascular: Regular Rate, Regular Rhythm - Lab Values: Laboratory Last Values WBC 7.02 K/mm3 (3.98-10.04) 05/11/20 12:20 RBC 4.33 M/mm3 (3.98-5.22) 05/11/20 12:20 Hgb 11.5 gm/dl (11.2-15.7) 05/11/20 12:20 Hct 36.7 % (34.1-44.9) 05/11/20 12:20 MCV 84.8 fl (79.4-94.8) 05/11/20 12:20 MCH 26.6 pg (25.6-32.2) 05/11/20 12:20 MCHC 31.3 g/dl (32.2-35.5) L 05/11/20 12:20 RDW Std Deviation 49.1 fL (36.4-46.3) H 05/11/20 12:20 Plt Count 385 K/mm3 (182-369) H 05/11/20 12:20 MPV 9.9 fl (9.4-12.3) 05/11/20 12:20 Neut % (Auto) 56.0 % (34.0-71.1) 05/11/20 12:20 Lymph % (Auto) 35.3 % (19.3-51.7) 05/11/20 12:20 [place] % (Auto) 7.0 % (4.7-12.5) 05/11/20 12:20 Eos % (Auto) 1.3 (0.7-5.8) 05/11/20 12:20 Baso % (Auto) 0.3 % (0.1-1.2) 05/11/20 12:20 Neut # (Auto) 3.93 K/mm3 (1.56-6.13) 05/11/20 12:20 Lymph # (Auto) 2.48 K/mm3 (1.18-3.74) 05/11/20 12:20 [place] # (Auto) 0.49 K/mm3 (0.24-0.36) H 05/11/20 12:20 Eos # (Auto) 0.09 K/mm3 (0.04-0.36) 05/11/20 12:20 Baso # (Auto) 0.02 K/mm3 (0.01-0.08) 05/11/20 12:20 Sodium 137 mEq/L (136-145) 05/11/20 12:20 Potassium 3.8 mEq/L (3.5-5.1) 05/11/20 12:20 Chloride 101 mEq/L (98-107) 05/11/20 12:20 Carbon Dioxide 28 mEq/L (21-32) 05/11/20 12:20 Anion Gap 11.8 (5-15) 05/11/20 12:20 BUN 9 mg/dL (7-18) 05/11/20 12:20 Creatinine 0.8 mg/dL (0.55-1.02) 05/11/20 12:20 Est Cr Clr Drug Dosing 108.17 mL/min 05/11/20 12:20 Estimated GFR (MDRD) > 60 mL/min (>60) 05/11/20 12:20 BUN/Creatinine Ratio 11.3 (14-18) L 05/11/20 12:20 Glucose 100 mg/dL (74-106) 05/11/20 12:20 Calcium 9.2 mg/dL (8.5-10.1) 05/11/20 12:20 Total Bilirubin 0.6 mg/dL (0.2-1.0) 05/11/20 12:20 AST 16 U/L (15-37) 05/11/20 12:20 ALT 34 U/L (14-59) 05/11/20 12:20 Alkaline Phosphatase 75 U/L (46-116) 05/11/20 12:20 Total Protein 8.3 g/dl (6.4-8.2) H 05/11/20 12:20 Albumin 3.3 g/dl (3.4-5.0) L 05/11/20 12:20 Globulin 5.0 gm/dL 05/11/20 12:20 Albumin/Globulin Ratio 0.7 (1-2) L 05/11/20 12:20 Lipase 74 U/L (73-393) 05/11/20 12:20 Urine Color Yellow (Yellow) 05/11/20 11:37 Urine Appearance Clear (Clear) 05/11/20 11:37 Urine pH 7.0 (5.0-8.0) 05/11/20 11:37 Ur Specific [place] 1.025 (1.005-1.030) 05/11/20 11:37 Urine Protein Negative (Negative) 05/11/20 11:37 Urine Glucose (UA) Negative (Negative) 05/11/20 11:37 Urine Ketones Negative (Negative) 05/11/20 11:37 Urine Occult Blood Negative (Negative) 05/11/20 11:37 Urine Nitrite Negative (Negative) 05/11/20 11:37 Urine Bilirubin Negative (Negative) 05/11/20 11:37 Urine Urobilinogen 1.0 (0.2-1.0) 05/11/20 11:37 Ur Leukocyte Esterase Negative (Negative) 05/11/20 11:37 Urine RBC Not seen /hpf (0-5) 05/11/20 11:37 Urine WBC 0-5 /hpf (0-5) 05/11/20 11:37 Ur Squamous Epith Cells 0-5 /hpf (0-5) 05/11/20 11:37 Urine Bacteria Few /hpf (FEW) 05/11/20 11:37 Urine Mucus Not seen /hpf (FEW) 05/11/20 11:37 Urine HCG, Qual Negative (NEGATIVE) 05/11/20 11:37 COVID-19 (GAY) Negative (NEGATIVE) 05/11/20 15:05 - Allergies Allergies/Adverse Reactions: Allergies Allergy/AdvReac Type Severity Reaction Status Date / Time nitrofurantoin Allergy Severe Hives Verified 05/11/20 11:39 [From Macrobid] nut - unspecified Allergy Severe Bronchospas Verified 05/11/20 11:39 ms shellfish derived Allergy Severe Facial Verified 05/11/20 11:39 Swelling - Blood Blood Available: No - Acknowledgements Anesthesia Type Planned: General Anesthesia Pt an Appropriate Candidate for the Planned Anesthesia: Yes Alternatives and Risks of Anesthesia Discussed w Pt/Guardian: Yes Pt/Guardian Understands and Agrees with Anesthesia Plan: Yes PreAnesthesia Questionnaire - Past Health History Medical/Surgical History: Denies Medical/Surgical History Cardiovascular History: Reports: None Respiratory History: Reports: None Gastrointestinal History: Reports: GERD Genitourinary History: Reports: UTI, Recurrent Para: 2 Musculoskeletal History: Reports: None Endocrine/Metabolic History: Reports: Obesity/BMI 30+ - SUBSTANCE USE Smoking Status *Q: Former Smoker Tobacco Use Within Last Twelve Months: No Second Hand Smoke Exposure: No Days Per Week of Alcohol Use: 0 Recreational Drug Use History: No - HOME MEDS Home Medications: Home Meds Calcium Carbonate [Tums] 2 tab PO DAILY PRN 05/11/20 [History] - CURRENT (IN HOUSE) MEDS Current Meds: Current Medications Sodium Chloride (Saline Flush) 10 ml FLUSH ASDIRECTED PRN PRN Reason: Keep Vein Open Last Admin: 05/11/20 12:40 Dose: 10 ml Documented by: Sodium Chloride (Saline Flush) 10 ml FLUSH ONETIME PRN PRN Reason: IV FLUSH Last Admin: 05/11/20 14:06 Dose: 10 ml Documented by: Discontinued Medications Diatrizoate Meglum/Diatrizoate Sod (Gastrografin 37%) 120 ml PO ONETIME ONE Stop: 05/11/20 12:46 Last Admin: 05/11/20 14:06 Dose: 90 ml Documented by: Diphenhydramine HCl (Benadryl) 50 mg IVPUSH ONETIME ONE Stop: 05/11/20 13:21 Last Admin: 05/11/20 13:27 Dose: 50 mg Documented by: Famotidine (Pepcid) 20 mg IVPUSH ONETIME ONE Stop: 05/11/20 14:16 Last Admin: 05/11/20 14:22 Dose: 20 mg Documented by: Hydromorphone HCl (Dilaudid) 1 mg IVPUSH ONETIME ONE Stop: 05/11/20 12:08 Last Admin: 05/11/20 13:24 Dose: 0.5 mg Documented by: Hydromorphone HCl (Dilaudid) 0.5 mg IVPUSH ONETIME ONE Stop: 05/11/20 14:40 Last Admin: 05/11/20 15:00 Dose: 0.5 mg Documented by: Sodium Chloride (Normal Saline) 1,000 mls @ 1,000 mls/hr IV .BOLUS STA Stop: 05/11/20 13:04 Last Admin: 05/11/20 12:29 Dose: 1,000 mls/hr Documented by: Ertapenem 1 gm/ Sodium (Chloride) 50 mls @ 100 mls/hr IV ONETIME ONE Stop: 05/11/20 15:06 Last Admin: 05/11/20 14:59 Dose: 100 mls/hr Documented by: Iopamidol (Isovue-300 (61%)) 100 ml IVPUSH ONETIME ONE Stop: 05/11/20 12:46 Last Admin: 05/11/20 14:06 Dose: 100 ml Documented by: Metoclopramide HCl (Reglan) 10 mg IVPUSH ONETIME ONE Stop: 05/11/20 13:33 Last Admin: 05/11/20 13:46 Dose: 10 mg Documented by: Ondansetron HCl (Zofran) 4 mg IVPUSH ONETIME ONE Stop: 05/11/20 12:06 Last Admin: 05/11/20 12:30 Dose: 4 mg Documented by:
[2020-05-11] MEDS ORDERED: Bupivacaine 0.25% 10 ML SDV ONE (16:43)
[2020-05-11] MEDS ORDERED: Rocuronium 50 MG/5 ML Vial ONE (16:47)
[2020-05-11] MEDS ORDERED: Midazolam 1 MG/ML 2 ML SDV ONE (16:47)
[2020-05-11] MEDS ORDERED: Ondansetron 4 MG/2 ML SDV ONE ×2 (16:47)
[2020-05-11] MEDS ORDERED: Lidocaine 1% 4 ML ONE (16:47)
[2020-05-11] MEDS ORDERED: Dexamethasone 4 MG/ML 5 ML MDV ONE (16:47)
[2020-05-11] MEDS ORDERED: Propofol 200 MG/20 ML SDV ONE (16:47)
[2020-05-11] MEDS ORDERED: fentaNYL 250 MCG/5 ML SDV ONE (16:47)
--- NOTE | 2020-05-11 16:48 | PCM.HP.2 ---
H&P History of Present Illness - General Date of Service: 05/11/20 Admit Problem/Dx: Admission Diagnosis/Problem Admission Diagnosis/Problem Appendicitis Source of Information: Patient History Limitations: Reports: No Limitations - History of Present Illness Initial Comments - Free Text/Narative: Patient started having some nausea 4 days ago. Abdominal pain started 2 days ag o. Pain is crampy, centered in the RLQ radiating towards the suprapubic area. Pain got progressively worse until it got to 10/10 last night. Movement worsened the pain. She vomited this AM. No fevers. She presented to the ED today, WBC was [address] was concerning for acute appendicitis. Onset of Symptoms: Reports: Gradual Duration of Symptoms: Reports: Day(s): (4), Getting Worse Location: Reports: Abdomen (RLQ) Quality: Reports: Ache Severity: Severe Improves with: Reports: Immobilization Worsens with: Reports: Movement Associated Symptoms: Reports: Nausea/Vomiting Lower Abdominal Pain Score (Numeric/FACES): 7 - Related Data Allergies/Adverse Reactions: Allergies Allergy/AdvReac Type Severity Reaction Status Date / Time nitrofurantoin Allergy Severe Hives Verified 05/11/20 11:39 [From Macrobid] nut - unspecified Allergy Severe Bronchospas Verified 05/11/20 11:39 ms shellfish derived Allergy Severe Facial Verified 05/11/20 11:39 Swelling Home Medications: Home Meds Calcium Carbonate [Tums] 2 tab PO DAILY PRN 05/11/20 [History] Past Medical History - Past Health History Medical/Surgical History: Denies Medical/Surgical History Cardiovascular History: Reports: None Respiratory History: Reports: None Gastrointestinal History: Reports: GERD Genitourinary History: Reports: UTI, Recurrent Musculoskeletal History: Reports: None Endocrine/Metabolic History: Reports: Obesity/BMI 30+ Social & Family History - Tobacco Use Smoking Status *Q: Former Smoker Second Hand Smoke Exposure: No - Caffeine Use Caffeine Use: Reports: Coffee, Energy Drinks - Alcohol Use Days Per Week of Alcohol Use: 0 - Recreational Drug Use Recreational Drug Use: No H&P Review of Systems - Review of Systems: Review Of Systems: See Below General: Reports: No Symptoms, Decreased Appetite HEENT: Reports: No Symptoms Pulmonary: Reports: No Symptoms Cardiovascular: Reports: No Symptoms Gastrointestinal: Reports: Abdominal Pain Genitourinary: Reports: No Symptoms Musculoskeletal: Reports: No Symptoms Skin: Reports: No Symptoms Psychiatric: Reports: No Symptoms Neurological: Reports: No Symptoms Exam - Exam Exam: See Below - Vital Signs Vital Signs: Last Vital Signs Temp 96.9 F 05/11/20 11:33 Pulse 78 05/11/20 11:33 Resp 16 05/11/20 11:33 BP 126/75 05/11/20 11:33 Pulse Ox 99 05/11/20 11:33 Weight: 98.43 kg - Exam General: Alert, Oriented, Cooperative Lungs: Clear to Auscultation, Normal Respiratory Effort Cardiovascular: Regular Rate, Regular Rhythm, Normal S1, Normal S2 GI/Abdominal Exam: Soft, No Organomegaly, No Distention, No Abnormal Bruit, No Mass, Tender (RLQ) - Patient Data Lab Results Last 24 hrs: Laboratory Results - last 24 hr 05/11/20 05/11/20 05/11/20 Range/Units 11:37 11:37 12:20 WBC 7.02 (3.98-10.04) K/mm3 RBC 4.33 (3.98-5.22) M/mm3 Hgb 11.5 (11.2-15.7) gm/dl Hct 36.7 (34.1-44.9) % MCV 84.8 (79.4-94.8) fl MCH 26.6 (25.6-32.2) pg MCHC 31.3 L (32.2-35.5) g/dl RDW Std Deviation 49.1 H (36.4-46.3) fL Plt Count 385 H (182-369) K/mm3 MPV 9.9 (9.4-12.3) fl Neut % (Auto) 56.0 (34.0-71.1) % Lymph % (Auto) 35.3 (19.3-51.7) % [place] % (Auto) 7.0 (4.7-12.5) % Eos % (Auto) 1.3 (0.7-5.8) Baso % (Auto) 0.3 (0.1-1.2) % Neut # (Auto) 3.93 (1.56-6.13) K/mm3 Lymph # (Auto) 2.48 (1.18-3.74) K/mm3 [place] # (Auto) 0.49 H (0.24-0.36) K/mm3 Eos # (Auto) 0.09 (0.04-0.36) K/mm3 Baso # (Auto) 0.02 (0.01-0.08) K/mm3 Sodium (136-145) mEq/L Potassium (3.5-5.1) mEq/L Chloride (98-107) mEq/L Carbon Dioxide (21-32) mEq/L Anion Gap (5-15) BUN (7-18) mg/dL Creatinine (0.55-1.02) mg/dL Est Cr Clr Drug Dosing mL/min Estimated GFR (MDRD) (>60) mL/min BUN/Creatinine Ratio (14-18) Glucose (74-106) mg/dL Calcium (8.5-10.1) mg/dL Total Bilirubin (0.2-1.0) mg/dL AST (15-37) U/L ALT (14-59) U/L Alkaline Phosphatase (46-116) U/L Total Protein (6.4-8.2) g/dl Albumin (3.4-5.0) g/dl Globulin gm/dL Albumin/Globulin Ratio (1-2) Lipase (73-393) U/L Urine Color Yellow (Yellow) Urine Appearance Clear (Clear) Urine pH 7.0 (5.0-8.0) Ur Specific [place] 1.025 (1.005-1.030) Urine Protein Negative (Negative) Urine Glucose (UA) Negative (Negative) Urine Ketones Negative (Negative) Urine Occult Blood Negative (Negative) Urine Nitrite Negative (Negative) Urine Bilirubin Negative (Negative) Urine Urobilinogen 1.0 (0.2-1.0) Ur Leukocyte Esterase Negative (Negative) Urine RBC Not seen (0-5) /hpf Urine WBC 0-5 (0-5) /hpf Ur Squamous Epith Cells 0-5 (0-5) /hpf Urine Bacteria Few (FEW) /hpf Urine Mucus Not seen (FEW) /hpf Urine HCG, Qual Negative (NEGATIVE) COVID-19 (GAY) (NEGATIVE) 05/11/20 05/11/20 Range/Units 12:20 15:05 WBC (3.98-10.04) K/mm3 RBC (3.98-5.22) M/mm3 Hgb (11.2-15.7) gm/dl Hct (34.1-44.9) % MCV (79.4-94.8) fl MCH (25.6-32.2) pg MCHC (32.2-35.5) g/dl RDW Std Deviation (36.4-46.3) fL Plt Count (182-369) K/mm3 MPV (9.4-12.3) fl Neut % (Auto) (34.0-71.1) % Lymph % (Auto) (19.3-51.7) % [place] % (Auto) (4.7-12.5) % Eos % (Auto) (0.7-5.8) Baso % (Auto) (0.1-1.2) % Neut # (Auto) (1.56-6.13) K/mm3 Lymph # (Auto) (1.18-3.74) K/mm3 [place] # (Auto) (0.24-0.36) K/mm3 Eos # (Auto) (0.04-0.36) K/mm3 Baso # (Auto) (0.01-0.08) K/mm3 Sodium 137 (136-145) mEq/L Potassium 3.8 (3.5-5.1) mEq/L Chloride 101 (98-107) mEq/L Carbon Dioxide 28 (21-32) mEq/L Anion Gap 11.8 (5-15) BUN 9 (7-18) mg/dL Creatinine 0.8 (0.55-1.02) mg/dL Est Cr Clr Drug Dosing 108.17 mL/min Estimated GFR (MDRD) > 60 (>60) mL/min BUN/Creatinine Ratio 11.3 L (14-18) Glucose 100 (74-106) mg/dL Calcium 9.2 (8.5-10.1) mg/dL Total Bilirubin 0.6 (0.2-1.0) mg/dL AST 16 (15-37) U/L ALT 34 (14-59) U/L Alkaline Phosphatase 75 (46-116) U/L Total Protein 8.3 H (6.4-8.2) g/dl Albumin 3.3 L (3.4-5.0) g/dl Globulin 5.0 gm/dL Albumin/Globulin Ratio 0.7 L (1-2) Lipase 74 (73-393) U/L Urine Color (Yellow) Urine Appearance (Clear) Urine pH (5.0-8.0) Ur Specific [place] (1.005-1.030) Urine Protein (Negative) Urine Glucose (UA) (Negative) Urine Ketones (Negative) Urine Occult Blood (Negative) Urine Nitrite (Negative) Urine Bilirubin (Negative) Urine Urobilinogen (0.2-1.0) Ur Leukocyte Esterase (Negative) Urine RBC (0-5) /hpf Urine WBC (0-5) /hpf Ur Squamous Epith Cells (0-5) /hpf Urine Bacteria (FEW) /hpf Urine Mucus (FEW) /hpf Urine HCG, Qual (NEGATIVE) COVID-19 (GAY) Negative (NEGATIVE) Result Diagrams: 05/11/20 12:20 05/11/20 12:20 Sepsis Event Note - Evaluation Sepsis Screening Result: No Definite Risk - Focused Exam Vital Signs: Vital Signs Temp Pulse Resp BP Pulse Ox 05/11/20 11:33 96.9 F 78 16 126/75 99 Date Exam was Performed: 05/11/20 Time Exam was Performed: 16:42 Problem List Initiated/Reviewed/Updated: No Orders Last 24hrs: Active Orders 24 hr Category Date Time Status Patient Status [ADT] Routine ADT 05/11/20 16:27 Active Peripheral IV Care [RC] . DIRECTED Care 05/11/20 12:06 Active Sodium Chloride 0.9% [Saline Flush] Med 05/11/20 12:05 Active 10 ml FLUSH ASDIRECTED PRN Sodium Chloride 0.9% [Saline Flush] Med 05/11/20 12:45 Active 10 ml FLUSH ONETIME PRN ED Antiemetic Medication Reflex [OM.PC] Stat Oth 05/11/20 12:06 Ordered Peripheral IV Insertion Adult [OM.PC] Stat Oth 05/11/20 12:05 Ordered Schedule Procedure [COMM] Stat Oth 05/11/20 16:28 Ordered Medication Orders Sodium Chloride (Saline Flush) 10 ml FLUSH ASDIRECTED PRN PRN Reason: Keep Vein Open Last Admin: 05/11/20 12:40 Dose: 10 ml Documented by: KAPIL Sodium Chloride (Saline Flush) 10 ml FLUSH ONETIME PRN PRN Reason: IV FLUSH Last Admin: 05/11/20 14:06 Dose: 10 ml Documented by: STEVENSON Assessment/Plan Comment:: Patient has acute appendicitis, uncomplicated. I discussed with her the management options including surgery or antibiotics. We discussed risks and benefits for each. Risks for antibiotics include abscess, not improving, recurrence. Risks for surgery include bleeding, infection, injury to adjacent structures. Patient verbalized understanding. All questions were answered. She chose to pursue surgery. We will proceed with this procedure today. Invanz given in the ED. - Mortality Measure Prognosis:: Good
[2020-05-11] MEDS ORDERED: fentaNYL 100 MCG/2 ML SDV IVPUSH PRN (17:18)
[2020-05-11] MEDS ORDERED: HYDROmorphone 0.5 MG/0.5 ML Syringe IVPUSH PRN (17:18)
[2020-05-11] MEDS ORDERED: Ondansetron 4 MG/2 ML SDV IVPUSH PRN (17:18)
[2020-05-11] MEDS ORDERED: Ketorolac 30 MG/ML SDV ONE (17:36)
[2020-05-11] MEDS ORDERED: Ondansetron 4 MG Tab.DIS PO PRN (18:12)
--- NOTE | 2020-05-11 18:17 | PCM.POSTAN ---
POST ANESTHESIA ASSESSMENT - MENTAL STATUS Mental Status: Alert, Oriented - VITAL SIGNS Vital Signs: Last Vital Signs Temp 98.4 F 05/11/20 18:06 Pulse 78 05/11/20 11:33 Resp 19 05/11/20 18:06 BP 113/53 L 05/11/20 18:06 Pulse Ox 100 05/11/20 18:06 - RESPIRATORY Respiratory Status: Respiratory Rate WNL, Airway Patent, O2 Saturation Stable, Supplemental Oxygen - CARDIOVASCULAR CV Status: Pulse Rate WNL, Blood Pressure Stable - GASTROINTESTINAL GI Status: No Symptoms - PAIN Pain Score: 0 - POST OP HYDRATION Hydration Status: Adequate & Stable
[2020-05-11] MEDS: Acetaminophen 325 MG Tab PO SCH ×2 (19:57→23:56)
[2020-05-11] MEDS: oxyCODONE 5 MG Tab PO PRN (21:50)
[2020-05-12] MEDS: Acetaminophen 325 MG Tab PO SCH (05:34)
--- NOTE | 2020-05-12 08:21 | OR ---
DATE OF OPERATION: 05/11/2020 SURGEON: Karly Walton MD PREOPERATIVE DIAGNOSIS: Acute appendicitis. POSTOPERATIVE DIAGNOSIS: Acute appendicitis. OPERATION PERFORMED: Laparoscopic appendectomy. ESTIMATED BLOOD LOSS: 5 mL. ANESTHESIA: General endotracheal. COMPLICATIONS: None. INDICATION AND CONSENT: The patient is a 19-year-old female who was having some nausea 4 days ago, followed by abdominal pain 2 days ago. Abdominal pain became really severe overnight at a rate of 10/10. Abdominal pain was cramping, located in the right lower quadrant. The patient was having nausea and vomiting. The patient came to the ED for evaluation. In the emergency department, white count was normal. No fever. CT scan confirmed acute appendicitis without any complications. I was called to talk to the patient and discussed the patient's options including antibiotics versus surgery. The patient brother opted to pursue surgery. We discussed risks, benefits, and alternatives, and informed consent was obtained. DESCRIPTION OF PROCEDURE: The patient was taken to the operating room, placed in supine position, and padded appropriately and then following induction of general endotracheal anesthesia, the patient's abdomen was prepped and draped. The patient had already received Invanz in the emergency department, therefore no additional antibiotics were indicated. Then, the abdomen was draped and prepped in the usual sterile fashion. Formal time-out was performed prior to the start of the procedure. Began the procedure by injecting 0.25% Marcaine infraumbilically. Incision was made at this site. Umbilical stalk was elevated and a Veress needle was introduced here. The abdomen was insufflated to 15 mmHg. Then, a 12 mm port was inserted under direct visualization of the 5 mm laparoscopic camera. Then, the abdomen was inspected. There was no obvious injury from trocar insertion or from Veress needle insertion. Two additional 5 mm trocars were placed under direct visualization, one was in the suprapubic area, another one was in the left lower quadrant. Then, the patient was placed in the slight reverse Trendelenburg position and left-sided down, and we focused in the right lower quadrant. Appendix was identified. It was inflamed except at the base. Appendix was grasped, elevated, and a window was made at the appendiceal base and this was transected using an Endo-SAIDA stapler, 5 mm blue load. Then, the mesoappendix was taken using the vascular load using the same Endo-SAIDA stapler. There was immediate bleeding from the mesoappendix staple line. This was controlled with clip hospitality ambassador. Suction butcher or smallgoods maker was used to suction some clots around the right lower quadrant. Total EBL was about 5 mL. At this point, we reinspected the abdomen. There was no fluid. There were no other areas that were concerning. The appendix was removed through the EndoCatch bag at the infraumbilical site and then the fascia at the infraumbilical site was closed with 0 Vicryl stitches using Magdy-Leena device and skin at all 3 incisions was closed with 0 Monocryl stitches and then Dermabond was applied. This marked the end of the procedure. At the end of the procedure, all instruments, sharps, and sponges were counted and found to be correct x2. The patient was awoken from anesthesia and taken to the PACU for recovery. The patient will be observed overnight, make sure the patient can take oral diet and tolerate medications, and the patient will be allowed to go home. MMODAL /[id number] ROMY
[2020-05-12] MEDS: oxyCODONE 5 MG Tab PO PRN (09:06)
--- NOTE | 2020-05-12 09:31 | PCM48HPAN ---
Post Anesthesia Note - EVALUATION WITHIN 48HRS OF ANESTHETIC Vital Signs in Normal Range: Yes Patient Participated in Evaluation: Yes Respiratory Function Stable: Yes Airway Patent: Yes Cardiovascular Function Stable: Yes Hydration Status Stable: Yes Pain Control Satisfactory: Yes Nausea and Vomiting Control Satisfactory: Yes Mental Status Recovered: Yes Vital Signs: Last Vital Signs Temp 36.5 C 05/12/20 07:32 Pulse 57 L 05/12/20 07:32 Resp 20 05/12/20 07:32 BP 114/59 L 05/12/20 07:32 Pulse Ox 94 L 05/12/20 07:32
--- NOTE | 2020-05-12 17:44 | PCM.DCSUM1 ---
Discharge Summary - Hospital Course Free Text/Narrative:: patient is s/p laparoscopic appendectomy yesterday. Did well overnight but still has lower abdominal pain which is improving. No nausea or vomiting. Patient is hungry this AM. She will be discharged home today. Diagnosis: Stroke: No - Discharge Data Discharge Date: 05/12/20 Discharge Disposition: Home, Self-Care 01 Condition: Good - Referral to Home Health Primary Care Physician: PCP None - Patient Summary/Data Operative Procedure(s) Performed: laparoscopic appendectomy Complications: none Recommended Follow-up Testing/Procedures: will call in 1-2 weeks with path results - Patient Instructions Diet: Heart Healthy Diet Activity: No Lifting Over 20 Pounds (for 2 weeks) Driving: Do Not Drive (until 24 hours post aneshtesia and when not taking opioid pain medications) Showering/Bathing: May Shower Wound/Incision Care: Keep Operative Site/Wound Site Clean and Dry Notify Provider of: Fever, Increased Pain, Swelling and Redness Other/Special Instructions: - Take Tylenol for pain. If pain gets worse, take the prescribed pain medications. - Take stool softener to avoid constipation. - Discharge Plan *PRESCRIPTION DRUG MONITORING PROGRAM REVIEWED*: Not Applicable *COPY OF PRESCRIPTION DRUG MONITORING REPORT IN PATIENT TAI: Not Applicable Prescriptions/Med Rec: Docusate Sodium 100 mg PO BID #20 capsule oxyCODONE HCl/Acetaminophen [Percocet 5-325 mg Tablet] 1 each PO Q8H #12 tablet Home Medications: Home Meds Calcium Carbonate [Tums] 2 tab PO DAILY PRN 05/11/20 [History] Docusate Sodium 100 mg PO BID #20 capsule 05/12/20 [Rx] oxyCODONE HCl/Acetaminophen [Percocet 5-325 mg Tablet] 1 each PO Q8H #12 tablet 05/12/20 [Rx] Oxygen Therapy Mode: Room Air Forms: ED Department Discharge Referrals: PCP,None [Primary Care Provider] - (Will call with appendix pathology results in 1-2 weeks.) Karly Walton MD [Physician] - 05/21/20 1:30 pm (Please follow up with Dr. Walton on Tuesday at 130pm.) - Discharge Summary/Plan Comment DC Time >30 min.: No - General Info Date of Service: 05/12/20 Admission Dx/Problem (Free Text: Admission Diagnosis/Problem Admission Diagnosis/Problem Appendicitis Subjective Update: Still has lower abdominal pain but this has improved from last night. No nausea or vomiting. able to urinate Functional Status: Reports: Pain Controlled, Ambulating, Urinating Numeric/FACES Score: 5 - Review of Systems General: Reports: No Symptoms HEENT: Reports: No Symptoms Pulmonary: Reports: No Symptoms Cardiovascular: Reports: No Symptoms Gastrointestinal: Reports: Abdominal Pain Genitourinary: Reports: No Symptoms Musculoskeletal: Reports: No Symptoms Skin: Reports: No Symptoms Neurological: Reports: No Symptoms - Patient Data Vitals - Most Recent: Last Vital Signs Temp 97.7 F 05/12/20 07:32 Pulse 57 L 05/12/20 07:32 Resp 20 05/12/20 07:32 BP 114/59 L 05/12/20 07:32 Pulse Ox 94 L 05/12/20 07:32 Weight - Most Recent: 98.43 kg I&O - Last 24 hours: Intake & Output 05/12/20 05/12/20 05/12/20 06:59 14:59 22:59 Intake Total 900 240 Output Total 800 Balance 100 240 Med Orders - Current: Current Medications Discontinued Medications Acetaminophen (Tylenol) 650 mg PO Q6H PATY Last Admin: 05/12/20 05:34 Dose: 650 mg Documented by: Bupivacaine HCl (Sensorcaine-Mpf 0.25%) Confirm Administered Dose 30 ml .ROUTE .STK-MED ONE Stop: 05/11/20 16:44 Last Admin: 05/11/20 17:21 Dose: 30 ml Documented by: Dexamethasone (Dexamethasone) Confirm Administered Dose 20 mg .ROUTE .STK-MED ONE Stop: 05/11/20 16:48 Diatrizoate Meglum/Diatrizoate Sod (Gastrografin 37%) 120 ml PO ONETIME ONE Stop: 05/11/20 12:46 Last Admin: 05/11/20 14:06 Dose: 90 ml Documented by: Diphenhydramine HCl (Benadryl) 50 mg IVPUSH ONETIME ONE Stop: 05/11/20 13:21 Last Admin: 05/11/20 13:27 Dose: 50 mg Documented by: Famotidine (Pepcid) 20 mg IVPUSH ONETIME ONE Stop: 05/11/20 14:16 Last Admin: 05/11/20 14:22 Dose: 20 mg Documented by: Fentanyl (Sublimaze) Confirm Administered Dose 250 mcg .ROUTE .STK-MED ONE Stop: 05/11/20 16:48 Fentanyl (Sublimaze) 50 mcg IVPUSH Q5M PRN PRN Reason: Pain Last Admin: 05/11/20 18:43 Dose: 50 mcg Documented by: Glycopyrrolate () Confirm Administered Dose 1 mg .ROUTE .STK-MED ONE Stop: 05/11/20 17:21 Hydromorphone HCl (Dilaudid) 1 mg IVPUSH ONETIME ONE Stop: 05/11/20 12:08 Last Admin: 05/11/20 13:24 Dose: 0.5 mg Documented by: Hydromorphone HCl (Dilaudid) 0.5 mg IVPUSH ONETIME ONE Stop: 05/11/20 14:40 Last Admin: 05/11/20 15:00 Dose: 0.5 mg Documented by: Hydromorphone HCl (Dilaudid) 0.5 mg IVPUSH Q10M PRN PRN Reason: Pain (severe 7-10) Last Admin: 05/12/20 05:37 Dose: 0.5 mg Documented by: Sodium Chloride (Normal Saline) 1,000 mls @ 1,000 mls/hr IV .BOLUS STA Stop: 05/11/20 13:04 Last Admin: 05/11/20 12:29 Dose: 1,000 mls/hr Documented by: Ertapenem 1 gm/ Sodium (Chloride) 50 mls @ 100 mls/hr IV ONETIME ONE Stop: 05/11/20 15:06 Last Admin: 05/11/20 14:59 Dose: 100 mls/hr Documented by: Lactated Ringer's (Ringers, Lactated) Confirm Administered Dose 1,000 mls @ as directed .ROUTE .STK-MED ONE Stop: 05/11/20 16:35 Last Admin: 05/11/20 19:03 Dose: Not Given Documented by: Lidocaine HCl (Xylocaine-Mpf 1%) Confirm Administered Dose 4 mls @ as directed .ROUTE .STK-MED ONE Stop: 05/11/20 16:48 Lactated Ringer's (Ringers, Lactated) Confirm Administered Dose 1,000 mls @ as directed .ROUTE .STK-MED ONE Stop: 05/11/20 17:50 Iopamidol (Isovue-300 (61%)) 100 ml IVPUSH ONETIME ONE Stop: 05/11/20 12:46 Last Admin: 05/11/20 14:06 Dose: 100 ml Documented by: Ketorolac Tromethamine (Toradol) Confirm Administered Dose 30 mg .ROUTE .STK-MED ONE Stop: 05/11/20 17:37 Metoclopramide HCl (Reglan) 10 mg IVPUSH ONETIME ONE Stop: 05/11/20 13:33 Last Admin: 05/11/20 13:46 Dose: 10 mg Documented by: Midazolam HCl (Versed 1 Mg/Ml) Confirm Administered Dose 2 mg .ROUTE .STK-MED ONE Stop: 05/11/20 16:48 Neostigmine Methylsulfate (Neostigmine Methylsulfate) Confirm Administered Dose 5 mg .ROUTE .ST-MED ONE Stop: 05/11/20 17:21 Ondansetron HCl (Zofran) 4 mg IVPUSH ONETIME ONE Stop: 05/11/20 12:06 Last Admin: 05/11/20 12:30 Dose: 4 mg Documented by: Ondansetron HCl (Zofran) Confirm Administered Dose 4 mg .ROUTE .STK-MED ONE Stop: 05/11/20 16:48 Ondansetron HCl (Zofran) Confirm Administered Dose 4 mg .ROUTE .STK-MED ONE Stop: 05/11/20 16:48 Ondansetron HCl (Zofran) 4 mg IVPUSH ONETIME PRN PRN Reason: Nausea/Vomiting Ondansetron HCl (Zofran Odt) 4 mg PO Q4H PRN PRN Reason: Nausea/Vomiting Last Admin: 05/11/20 23:56 Dose: 4 mg Documented by: Oxycodone HCl (Oxycodone) 5 mg PO Q6H PRN PRN Reason: Abdominal Pain Last Admin: 05/12/20 09:06 Dose: 5 mg Documented by: Propofol (Diprivan 20 Ml) Confirm Administered Dose 200 mg .ROUTE .STK-MED ONE Stop: 05/11/20 16:48 Rocuronium [place] (Zemuron) Confirm Administered Dose 50 mg .ROUTE .STK-MED ONE Stop: 05/11/20 16:48 Sodium Chloride (Saline Flush) 10 ml FLUSH ASDIRECTED PRN PRN Reason: Keep Vein Open Last Admin: 05/11/20 12:40 Dose: 10 ml Documented by: Sodium Chloride (Saline Flush) 10 ml FLUSH ONETIME PRN PRN Reason: IV FLUSH Last Admin: 05/11/20 14:06 Dose: 10 ml Documented by: - Exam General: Reports: Alert, Oriented, Cooperative Lungs: Reports: Clear to Auscultation, Normal Respiratory Effort Cardiovascular: Reports: Regular Rate, Regular Rhythm, No Murmurs GI/Abdominal Exam: Soft, No Organomegaly, No Distention, No Abnormal Bruit, Tender (RLQ and around the incisions)
== END 2020-05-12 12:00 | disposition home or self-care (01) ==
LOC: JD.ED 11:17 → JD.SDS 16:27 → JD.MS 19:29 → JD.SDS 05-12 12:00
PROVIDERS: ATTEND Surgery
DX: K35.33 Acute appendicitis with perforation, localized peritonitis, and gangrene, with abscess (principal); K21.9 Gastro-esophageal reflux disease without esophagitis; E66.9 Obesity, unspecified; Z11.59 Encounter for screening for other viral diseases; Z91.013 Allergy to seafood; Z88.1 Allergy status to other antibiotic agents; Z87.891 Personal history of nicotine dependence; Z68.34 Body mass index [BMI] 34.0-34.9, adult
CPT/HCPCS: 36415; 44970; 74177; 80053; 81001; 81025; 83690; 85025; 87635; 96361; 96365; 96375; 96376; 99285; A9270; J1100; J1170; J1200; J1335; J1885; J2001; J2250; J2405; J2704; J2710; J2765; J3010; J3490; J7030; J7050; J7120; Q9963; Q9967; 00840; 99284; U0002

== ENCOUNTER 2020-05-19 19:59 | Emergency (ER) | payer MEDICAID ==
[2020-05-19] MEDS ORDERED: Sodium Chloride 0.9% 10 ML Syringe FLUSH PRN (20:24)
[2020-05-19] MEDS ORDERED: Ondansetron 4 MG/2 ML SDV IVPUSH ONE (20:25)
[2020-05-19] MEDS ORDERED: Sodium Chloride 0.9% 1,000 ML IV SCH (20:30)
--- NOTE | 2020-05-19 20:41 | EDM.PDOC ---
ED HPI GENERAL MEDICAL PROBLEM - General Chief Complaint: Abdominal Pain Stated Complaint: ABDOMINAL PAIN POST OPPR Time Seen by Provider: 05/19/20 20:08 Source of Information: Reports: Patient, RN Notes Reviewed - History of Present Illness INITIAL COMMENTS - FREE TEXT/NARRATIVE: 19 yr old female had appendix out 8 days ago. Has had pain, nausea, vomiting daily since the surgery but states pain more severe since early this morning. No fever of chills. No cough or difficulty breathing. Has been eating and drinking but states eating "makes her vomit". Right Lower Abdomen Pain Score (Numeric/FACES): 7 - Related Data Allergies Allergy/AdvReac Type Severity Reaction Status Date / Time nitrofurantoin Allergy Severe Hives Verified 05/19/20 20:12 [From Macrobid] nut - unspecified Allergy Severe Bronchospas Verified 05/19/20 20:12 ms shellfish derived Allergy Severe Facial Verified 05/19/20 20:12 Swelling Home Meds: Home Meds Docusate Sodium 100 mg PO BID #20 capsule 05/12/20 [Rx] Ondansetron [Zofran ODT] 4 mg PO Q8HR PRN #7 tab.dis 05/19/20 [Rx] cephALEXin [Cephalexin] 500 mg PO Q8HR #14 capsule 05/19/20 [Rx] Past Medical History - Past Health History Medical/Surgical History: Denies Medical/Surgical History HEENT History: Reports: None Cardiovascular History: Reports: None Respiratory History: Reports: None Gastrointestinal History: Reports: GERD Genitourinary History: Reports: UTI, Recurrent 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 Musculoskeletal History: Reports: None Neurological History: Reports: None Psychiatric History: Reports: None Endocrine/Metabolic History: Reports: Obesity/BMI 30+ Hematologic History: Reports: None Immunologic History: Reports: None Oncologic (Cancer) History: Reports: None Dermatologic History: Reports: None - Infectious Disease History Infectious Disease History: Reports: None - Past Surgical History GI Surgical History: Reports: Appendectomy Social & Family History - Tobacco Use Smoking Status *Q: Never Smoker - Caffeine Use Caffeine Use: Reports: Coffee - Recreational Drug Use Recreational Drug Use: No ED ROS GENERAL - Review of Systems Review Of Systems: See Below Constitutional: Denies: Fever, Chills, Diaphoresis HEENT: Reports: No Symptoms Respiratory: Denies: Shortness of Breath Cardiovascular: Denies: Chest Pain GI/Abdominal: Reports: Abdominal Pain, Constipation (several day ago, now better), Nausea, Vomiting. Denies: Diarrhea Musculoskeletal: Denies: Back Pain Skin: Reports: No Symptoms Neurological: Reports: No Symptoms ED EXAM, GI/ABD - Physical Exam Exam: See Below General Appearance: Alert, No Apparent Distress Head: Atraumatic Neck: Supple Respiratory/Chest: No Respiratory Distress, Lungs Clear, Normal Breath Sounds Cardiovascular: Regular Rate, Rhythm GI/Abdominal Exam: Soft, Tender (R mid, R lower and mid lower abd, L abd nontender). No: Guarding, Rebound Neurological: Alert, Oriented, No Motor/Sensory Deficits Skin Exam: Warm, Dry, Normal Color, No Rash Course - Vital Signs Last Recorded V/S: Last Vital Signs Temp 96.9 F 05/19/20 20:09 Pulse 87 05/19/20 20:09 Resp 16 05/19/20 20:09 BP 117/62 05/19/20 20:09 Pulse Ox 97 05/19/20 20:09 - Orders/Labs/Meds Orders: Active Orders 24 hr Category Date Time Status Peripheral IV Care [RC] . DIRECTED Care 05/19/20 20:25 Active Abdomen 2V AP Flat Upright [CR] Stat Exams 05/19/20 20:37 Taken CULTURE URINE [RM] Stat Lab 05/19/20 21:05 Received Sodium Chloride 0.9% [Normal Saline] 1,000 ml Med 05/19/20 20:30 Active IV ONETIME Sodium Chloride 0.9% [Saline Flush] Med 05/19/20 20:24 Active 10 ml FLUSH ASDIRECTED PRN Peripheral IV Insertion Adult [OM.PC] Stat Oth 05/19/20 20:25 Ordered Medication Orders Sodium Chloride (Normal Saline) 1,000 mls @ 999 mls/hr IV ONETIME PATY Last Admin: 05/19/20 20:45 Dose: 999 mls/hr Documented by: ANGELICA Sodium Chloride (Saline Flush) 10 ml FLUSH ASDIRECTED PRN PRN Reason: Keep Vein Open Last Admin: 05/19/20 20:46 Dose: 10 ml Documented by: ANGELICA Labs: Laboratory Tests 05/19/20 05/19/20 05/19/20 Range/Units 20:43 20:43 21:05 WBC 8.30 (3.98-10.04) K/mm3 RBC 4.19 (3.98-5.22) M/mm3 Hgb 11.3 (11.2-15.7) gm/dl Hct 35.3 (34.1-44.9) % MCV 84.2 (79.4-94.8) fl MCH 27.0 (25.6-32.2) pg MCHC 32.0 L (32.2-35.5) g/dl RDW Std Deviation 48.8 H (36.4-46.3) fL Plt Count 393 H (182-369) K/mm3 MPV 9.0 L (9.4-12.3) fl Neut % (Auto) 54.6 (34.0-71.1) % Lymph % (Auto) 36.1 (19.3-51.7) % [place] % (Auto) 7.7 (4.7-12.5) % Eos % (Auto) 1.3 (0.7-5.8) Baso % (Auto) 0.2 (0.1-1.2) % Neut # (Auto) 4.52 (1.56-6.13) K/mm3 Lymph # (Auto) 3.00 (1.18-3.74) K/mm3 [place] # (Auto) 0.64 H (0.24-0.36) K/mm3 Eos # (Auto) 0.11 (0.04-0.36) K/mm3 Baso # (Auto) 0.02 (0.01-0.08) K/mm3 Sodium 136 (136-145) mEq/L Potassium 3.7 (3.5-5.1) mEq/L Chloride 102 (98-107) mEq/L Carbon Dioxide 24 (21-32) mEq/L Anion Gap 13.7 (5-15) BUN 10 (7-18) mg/dL Creatinine 0.9 (0.55-1.02) mg/dL Est Cr Clr Drug Dosing 96.15 mL/min Estimated GFR (MDRD) > 60 (>60) mL/min BUN/Creatinine Ratio 11.1 L (14-18) Glucose 105 (74-106) mg/dL Calcium 8.5 (8.5-10.1) mg/dL Total Bilirubin 0.3 (0.2-1.0) mg/dL AST 20 (15-37) U/L ALT 42 (14-59) U/L Alkaline Phosphatase 74 (46-116) U/L C-Reactive Protein 3.0 H* (<1.0) mg/dL Total Protein 8.3 H (6.4-8.2) g/dl Albumin 3.3 L (3.4-5.0) g/dl Globulin 5.0 gm/dL Albumin/Globulin Ratio 0.7 L (1-2) Urine Color Yellow (Yellow) Urine Appearance Clear (Clear) Urine pH 6.5 (5.0-8.0) Ur Specific [place] 1.025 (1.005-1.030) Urine Protein Negative (Negative) Urine Glucose (UA) Negative (Negative) Urine Ketones Trace H (Negative) Urine Occult Blood Negative (Negative) Urine Nitrite Negative (Negative) Urine Bilirubin Negative (Negative) Urine Urobilinogen 1.0 (0.2-1.0) Ur Leukocyte Esterase Trace H (Negative) Urine RBC 0-5 (0-5) /hpf Urine WBC 0-5 (0-5) /hpf Ur Squamous Epith Cells 5-10 H (0-5) /hpf Urine Bacteria Few (FEW) /hpf Urine Mucus Many H (FEW) /hpf Urine HCG, Qual (NEGATIVE) 05/19/20 Range/Units 21:05 WBC (3.98-10.04) K/mm3 RBC (3.98-5.22) M/mm3 Hgb (11.2-15.7) gm/dl Hct (34.1-44.9) % MCV (79.4-94.8) fl MCH (25.6-32.2) pg MCHC (32.2-35.5) g/dl RDW Std Deviation (36.4-46.3) fL Plt Count (182-369) K/mm3 MPV (9.4-12.3) fl Neut % (Auto) (34.0-71.1) % Lymph % (Auto) (19.3-51.7) % [place] % (Auto) (4.7-12.5) % Eos % (Auto) (0.7-5.8) Baso % (Auto) (0.1-1.2) % Neut # (Auto) (1.56-6.13) K/mm3 Lymph # (Auto) (1.18-3.74) K/mm3 [place] # (Auto) (0.24-0.36) K/mm3 Eos # (Auto) (0.04-0.36) K/mm3 Baso # (Auto) (0.01-0.08) K/mm3 Sodium (136-145) mEq/L Potassium (3.5-5.1) mEq/L Chloride (98-107) mEq/L Carbon Dioxide (21-32) mEq/L Anion Gap (5-15) BUN (7-18) mg/dL Creatinine (0.55-1.02) mg/dL Est Cr Clr Drug Dosing mL/min Estimated GFR (MDRD) (>60) mL/min BUN/Creatinine Ratio (14-18) Glucose (74-106) mg/dL Calcium (8.5-10.1) mg/dL Total Bilirubin (0.2-1.0) mg/dL AST (15-37) U/L ALT (14-59) U/L Alkaline Phosphatase (46-116) U/L C-Reactive Protein (<1.0) mg/dL Total Protein (6.4-8.2) g/dl Albumin (3.4-5.0) g/dl Globulin gm/dL Albumin/Globulin Ratio (1-2) Urine Color (Yellow) Urine Appearance (Clear) Urine pH (5.0-8.0) Ur Specific [place] (1.005-1.030) Urine Protein (Negative) Urine Glucose (UA) (Negative) Urine Ketones (Negative) Urine Occult Blood (Negative) Urine Nitrite (Negative) Urine Bilirubin (Negative) Urine Urobilinogen (0.2-1.0) Ur Leukocyte Esterase (Negative) Urine RBC (0-5) /hpf Urine WBC (0-5) /hpf Ur Squamous Epith Cells (0-5) /hpf Urine Bacteria (FEW) /hpf Urine Mucus (FEW) /hpf Urine HCG, Qual Negative (NEGATIVE) Meds: Medications Generic Name Dose Route Start Last Admin Trade Name Freq PRN Reason Stop Dose Admin Sodium Chloride 1,000 mls @ 999 mls/hr 05/19/20 20:30 05/19/20 20:45 Normal Saline IV 999 mls/hr ONETIME PATY Administration Sodium Chloride 10 ml 05/19/20 20:24 05/19/20 20:46 Saline Flush FLUSH 10 ml ASDIRECTED PRN Administration Keep Vein Open Discontinued Medications Generic Name Dose Route Start Last Admin Trade Name Luz PRN Reason Stop Dose Admin Cephalexin 500 mg 05/19/20 22:21 Keflex PO 05/19/20 22:22 ONETIME ONE Ketorolac Tromethamine 30 mg 05/19/20 21:01 05/19/20 21:06 Toradol IVPUSH 05/19/20 21:02 30 mg ONETIME STA Administration Metoclopramide HCl 5 mg 05/19/20 22:20 Reglan IVPUSH 05/19/20 22:21 ONETIME ONE Ondansetron HCl 4 mg 05/19/20 20:25 05/19/20 20:45 Zofran IVPUSH 05/19/20 20:26 4 mg ONETIME ONE Administration - Re-Assessments/Exams Free Text/Narrative Re-Assessment/Exam: 05/19/20 22:29 WBC nl, CRP 3. Flat and upright nl. UA shows evidence for mild UTI. Urine culture ordered. Have given zofran and torodol IV. She does not appear to have a surgical abd. at this time. Discharge instr. as documented. Departure - Departure Time of Disposition: 22:22 Disposition: Home, Self-Care 01 Condition: Fair Clinical Impression: Abdominal pain, UTI (urinary tract infection) - Discharge Information Prescriptions: cephALEXin [Cephalexin] 500 mg PO Q8HR #14 capsule Ondansetron [Zofran ODT] 4 mg PO Q8HR PRN #7 tab.dis PRN Reason: Nausea/Vomiting Referrals: PCP,None [Primary Care Provider] - Forms: ED Department Discharge Additional Instructions: Zofran 4 mg ODT up to q 8 hr if needed for further nausea or vomiting. Continue with the stool softner once or twice daily. Clear liquids and bland diet as tolerated. Cephalexin 500 mg 3 times daily for probable UTI. Prescriptions have been sent electronic to [facility]. Urine culture has been done. See Dr Isabelle Klein as planned. Return to ED as needed if symptoms worsening in any way. Sepsis Event Note (ED) - Evaluation Sepsis Screening Result: No Definite Risk - Focused Exam Vital Signs: Vital Signs Temp Pulse Resp BP Pulse Ox 05/19/20 20:09 96.9 F 87 16 117/62 97 - My Orders Last 24 Hours: My Active Orders 05/19/20 20:24 Sodium Chloride 0.9% [Saline Flush] 10 ml FLUSH ASDIRECTED PRN 05/19/20 20:25 Peripheral IV Care [RC] . DIRECTED Peripheral IV Insertion Adult [OM.PC] Stat 05/19/20 20:30 Sodium Chloride 0.9% [Normal Saline] 1,000 ml IV ONETIME 05/19/20 20:37 Abdomen 2V AP Flat Upright [CR] Stat 05/19/20 21:05 CULTURE URINE [RM] Stat - Assessment/Plan Last 24 Hours: My Active Orders 05/19/20 20:24 Sodium Chloride 0.9% [Saline Flush] 10 ml FLUSH ASDIRECTED PRN 05/19/20 20:25 Peripheral IV Care [RC] . DIRECTED Peripheral IV Insertion Adult [OM.PC] Stat 05/19/20 20:30 Sodium Chloride 0.9% [Normal Saline] 1,000 ml IV ONETIME 05/19/20 20:37 Abdomen 2V AP Flat Upright [CR] Stat 05/19/20 21:05 CULTURE URINE [RM] Stat
[2020-05-19] MEDS ORDERED: Ketorolac 30 MG/ML SDV IVPUSH STA (21:01)
[2020-05-19] MEDS ORDERED: Metoclopramide 10 MG/2 ML SDV IVPUSH ONE (22:20)
[2020-05-19] MEDS ORDERED: Cephalexin 500 MG Cap PO ONE (22:21)
--- NOTE | 2020-05-20 08:50 | CR ---
Abdomen: Supine and upright views of the abdomen were obtained. Comparison: Prior abdominal x-ray of 12/23/19. Bowel gas pattern is normal. Scoliosis is noted within the spine. No abnormal calcifications or soft tissue abnormality is seen. No free air is seen. Impression: 1. Nothing acute is appreciated on abdominal x-ray. Diagnostic code #2 Study was dictated in MDT
== END 2020-05-19 22:50 | disposition home or self-care (01) ==
LOC: JD.ED 19:59
DX: N39.0 Urinary tract infection, site not specified (principal); E66.9 Obesity, unspecified; Z68.36 Body mass index [BMI] 36.0-36.9, adult; Z90.49 Acquired absence of other specified parts of digestive tract; Z88.1 Allergy status to other antibiotic agents; Z91.013 Allergy to seafood; Z91.018 Allergy to other foods
CPT/HCPCS: 36415; 74019; 80053; 81001; 81025; 85025; 86140; 87086; 96361; 96374; 96375; 99284; A9270; J1885; J2405; J2765; J7030; 87088

== ENCOUNTER 2020-07-04 18:53 | Emergency (ER) | payer MEDICAID, OTHER ==
--- NOTE | 2020-07-04 22:42 | EDM.PDOC ---
ED HPI GENERAL MEDICAL PROBLEM - General Chief Complaint: ENT Problem Stated Complaint: SORE THROAT/HEAD HURTS/RUNNING NOSE Time Seen by Provider: 07/04/20 22:10 Source of Information: Reports: Patient History Limitations: Reports: No Limitations - History of Present Illness INITIAL COMMENTS - FREE TEXT/NARRATIVE: This is a 19-year-old female. She says for the last 3 to 4 days she has been having a runny nose a pretty sore throat headache a slight cough and myalgias. But she denies any shortness of breath. She says 1 of her coworkers was tested for COVID since her coworker had been exposed but it was reported that her test was negative. The patient is concerned that she might have COVID now. She also says she is 42 days late with her. In 3 weeks ago she did a home test that was negative. She denies any other acute symptoms. She denies nausea vomiting or diarrhea. Throat Pain Score (Numeric/FACES): 6 - Related Data Allergies Allergy/AdvReac Type Severity Reaction Status Date / Time nitrofurantoin Allergy Severe Hives Verified 07/04/20 22:14 [From Macrobid] nut - unspecified Allergy Severe Bronchospas Verified 07/04/20 22:14 ms shellfish derived Allergy Severe Facial Verified 07/04/20 22:14 Swelling Home Meds: Home Meds Azithromycin [Zithromax] 250 mg PO DAILY #6 tablet 07/05/20 [Rx] Past Medical History - Past Health History Medical/Surgical History: Denies Medical/Surgical History HEENT History: Reports: None Cardiovascular History: Reports: None Respiratory History: Reports: None Gastrointestinal History: Reports: GERD Genitourinary History: Reports: UTI, Recurrent 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 Musculoskeletal History: Reports: None Neurological History: Reports: None Psychiatric History: Reports: None Endocrine/Metabolic History: Reports: Obesity/BMI 30+ Hematologic History: Reports: None Immunologic History: Reports: None Oncologic (Cancer) History: Reports: None Dermatologic History: Reports: None - Infectious Disease History Infectious Disease History: Reports: None - Past Surgical History GI Surgical History: Reports: Appendectomy Social & Family History - Tobacco Use Smoking Status *Q: Never Smoker Second Hand Smoke Exposure: No - Caffeine Use Caffeine Use: Reports: None - Recreational Drug Use Recreational Drug Use: No ED ROS ENT - Review of Systems Review Of Systems: See Below Constitutional: Denies: Fever, Chills HEENT: Reports: Rhinitis, Throat Pain Respiratory: Reports: Cough. Denies: Shortness of Breath Cardiovascular: Reports: No Symptoms Endocrine: Reports: No Symptoms GI/Abdominal: Denies: Abdominal Pain, Diarrhea, Nausea, Vomiting : Reports: No Symptoms Musculoskeletal: Reports: No Symptoms Skin: Reports: No Symptoms Neurological: Reports: Headache Psychiatric: Reports: No Symptoms ED EXAM, ENT - Physical Exam Exam: See Below Exam Limited By: No Limitations General Appearance: Alert, WD/WN, No Apparent Distress Eye Exam: Bilateral Eye: Normal Inspection Ears: Normal External Exam, Normal Canal, Normal TMs Nose: Clear Rhinorrhea Mouth/Throat: Normal Inspection, Normal Lips, Normal Oropharynx, Other (Tonsils are enlarged but there is no exudates noted) Head: Normocephalic Neck: Supple Respiratory/Chest: No Respiratory Distress, Lungs Clear, Normal Breath Sounds Cardiovascular: Regular Rate, Rhythm, No Murmur GI/Abdominal: Soft Back: Full Range of Motion Extremities: Normal Inspection, Normal Range of Motion Neurological: Alert, Oriented Psychiatric: Normal Affect, Normal Mood Skin: Warm, Dry Course - Vital Signs Last Recorded V/S: Last Vital Signs Temp 98.3 F 07/04/20 22:05 Pulse 64 07/04/20 22:05 Resp 24 H 07/04/20 22:05 BP 122/72 07/04/20 22:05 Pulse Ox 100 07/04/20 22:05 - Orders/Labs/Meds Orders: Active Orders 24 hr Category Date Time Status CULTURE STREP A CONFIRMATION [RM] Stat Lab 07/04/20 23:01 Results Rapid Strep w/culture conf [STREP SCRN A RAPID W CULT Lab 07/04/20 23:01 Results CONF] [RM] Stat Labs: Laboratory Tests 07/04/20 07/04/20 Range/Units 22:54 23:00 HCG, Quant < 1.0 mIU/mL SARS-CoV-2 RNA (GAY) Negative (NEGATIVE) - Re-Assessments/Exams Free Text/Narrative Re-Assessment/Exam: 07/05/20 00:41 Spoke to the patient regarding her negative test negative COVID test and negative strep test. I will put her on some antibiotics because I think she has a sinus infection. She will follow-up with her doctor later this week. Departure - Departure Time of Disposition: 00:41 Disposition: Home, Self-Care 01 Condition: Fair Clinical Impression: Sinus drainage Upper respiratory infection Qualifiers: URI type: unspecified URI Qualified Code(s): J06.9 - Acute upper respiratory infection, unspecified Pharyngitis Qualifiers: Pharyngitis/tonsillitis etiology: unspecified etiology Qualified Code(s): J02.9 - Acute pharyngitis, unspecified - Discharge Information *PRESCRIPTION DRUG MONITORING PROGRAM REVIEWED*: Not Applicable *COPY OF PRESCRIPTION DRUG MONITORING REPORT IN PATIENT TAI: Not Applicable Prescriptions: Azithromycin [Zithromax] 250 mg PO DAILY #6 tablet Instructions: Upper Respiratory Infection, Adult, [id number] Referrals: Daniel Fitzgerald MD [Primary Care Provider] - Forms: ED Department Discharge, ED Return to Work/School Form Additional Instructions: Get the antibiotics and start them tomorrow, use a decongestant to help with the runny nose and the drainage, rest and sleep as much as possible, drink lots of water and avoid sugar and caffeine, follow-up with your doctor later next week for recheck, return to the ER if needed please note that your COVID test was negative and your strep test was negative and your test was negative Sepsis Event Note (ED) - Evaluation Sepsis Screening Result: No Definite Risk - Focused Exam Vital Signs: Vital Signs Temp Pulse Resp BP Pulse Ox 07/04/20 22:05 98.3 F 64 24 H 122/72 100 - My Orders Last 24 Hours: My Active Orders 07/04/20 23:01 CULTURE STREP A CONFIRMATION [] Stat Rapid Strep w/culture conf [STREP SCRN A RAPID W CULT CONF] [] Stat - Assessment/Plan Last 24 Hours: My Active Orders 07/04/20 23:01 CULTURE STREP A CONFIRMATION [] Stat Rapid Strep w/culture conf [STREP SCRN A RAPID W CULT CONF] [] Stat
== END 2020-07-05 00:55 | disposition home or self-care (01) ==
LOC: JD.ED 18:53
DX: J02.9 Acute pharyngitis, unspecified (principal); E66.9 Obesity, unspecified; Z68.39 Body mass index [BMI] 39.0-39.9, adult; Z20.828 Contact with and (suspected) exposure to other viral communicable diseases; Z88.1 Allergy status to other antibiotic agents; Z91.018 Allergy to other foods; Z91.013 Allergy to seafood
CPT/HCPCS: 36415; 84702; 87081; 87430; 99283; 99284; U0002

== ENCOUNTER 2020-07-18 09:55 | Emergency (ER) | payer MEDICAID ==
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
== END 2020-07-18 11:17 | disposition home or self-care (01) ==
LOC: JD.ED 09:55
DX: R51.9 Headache, unspecified (principal); Z88.1 Allergy status to other antibiotic agents; E66.9 Obesity, unspecified; Z68.41 Body mass index [BMI] 40.0-44.9, adult; Z91.013 Allergy to seafood; Z91.018 Allergy to other foods; V49.9XXA Car occupant (driver) (passenger) injured in unspecified traffic accident, initial encounter
CPT/HCPCS: 99283

== ENCOUNTER 2020-08-11 11:05 | Emergency (ER) | payer MEDICAID ==
[2020-08-11] MEDS ORDERED: Ondansetron 4 MG/2 ML SDV IVPUSH ONE (11:46)
[2020-08-11] MEDS ORDERED: Sodium Chloride 0.9% 10 ML Syringe FLUSH PRN (11:47)
--- NOTE | 2020-08-11 11:53 | EDM.PDOC ---
ED HPI GENERAL MEDICAL PROBLEM - General Chief Complaint: Abdominal Pain Stated Complaint: LOW BACK AND LOW ABD PAIN, NAUSEA AND VOMITING Time Seen by Provider: 08/11/20 11:19 Source of Information: Reports: Patient, RN Notes Reviewed History Limitations: Reports: No Limitations - History of Present Illness INITIAL COMMENTS - FREE TEXT/NARRATIVE: Patient is a 19-year-old female who presents to the ED for evaluation of her lower abdomen pain. Patient notes that she had her last menstrual period, that ended on 01 August. She states since then she has had low pelvic pain, a ssociate with severe cramping. She states nothing really seems to make it better or worse, she is taking Tylenol and ibuprofen for this, but does not help much. She is also tried some Azo, and this has not provided much relief. She took a test last week at home, and it was negative. She is also complaining of a headache, fevers and chills. She states that she is taking 2 temperatures at home, last night it was 104.1 F. Temperature this morning at around 5 AM, was 104.4 F. She denies any cough or shortness of breath. She states she has been having regular bowel movements and no diarrhea, she is denying any vaginal discharge that is malodorous or any vaginal bleeding. She does complain of urinary frequency, but no dysuria. She states that her lower back also hurts. She does state that she had her appendix taken out in May of this last year. She is complaining of nausea, that seems to be more exquisite in the morning, but is still present at today's visit. Pelvic Pain Score (Numeric/FACES): 9 - Related Data Allergies Allergy/AdvReac Type Severity Reaction Status Date / Time nitrofurantoin Allergy Severe Hives Verified 08/11/20 11:24 [From Macrobid] nut - unspecified Allergy Severe Bronchospas Verified 08/11/20 11:24 ms shellfish derived Allergy Severe Facial Verified 08/11/20 11:24 Swelling Home Meds: Home Meds Cefdinir [Omnicef] 300 mg PO BID 5 Days #10 cap 08/11/20 [Rx] Past Medical History Gastrointestinal History: Reports: GERD Genitourinary History: Reports: UTI, Recurrent [employer] History: Reports: Endocrine/Metabolic History: Reports: Obesity/BMI 30+ - Past Surgical History GI Surgical History: Reports: Appendectomy (05/2020) Social & Family History - Family History Family Medical History: Noncontributory - Tobacco Use Tobacco Use Status *Q: Never Tobacco User Second Hand Smoke Exposure: No - Caffeine Use Caffeine Use: Reports: None - Recreational Drug Use Recreational Drug Use: No ED ROS GENERAL - Review of Systems Review Of Systems: Comprehensive ROS is negative, except as noted in HPI. ED EXAM, RENAL/ - Physical Exam Exam: See Below Exam Limited By: No Limitations General Appearance: Alert, WD/WN, No Apparent Distress Eye Exam: Bilateral Eye: EOMI, Normal Inspection, PERRL Throat/Mouth: Normal Inspection, Normal Lips, Normal Teeth, Normal Gums, Normal Oropharynx, Normal Voice, No Airway Compromise Head: Atraumatic, Normocephalic Neck: Normal Inspection Respiratory/Chest: No Respiratory Distress, Lungs Clear, Normal Breath Sounds, No Accessory Muscle Use, Chest Non-Tender Cardiovascular: Normal Peripheral Pulses, Regular Rate, Rhythm, No Murmur GI/Abdominal: Tender (mainly over the suprapubic area, but seems to be tender throughout abdomen, she does complain of nausea with palpation as well.), Abnormal Bowel Sounds (hypoactive tones x 4 quadrants) Extremities: Normal Inspection, Normal Capillary Refill Neurological: Alert, Oriented, Normal Cognition, No Motor/Sensory Deficits Psychiatric: Normal Affect, Normal Mood Skin Exam: Warm, Dry, Intact, Normal Color, No Rash Course - Vital Signs Last Recorded V/S: Last Vital Signs Temp 97.9 F 08/11/20 11:17 Pulse 70 08/11/20 11:17 Resp 20 08/11/20 11:17 BP 117/64 08/11/20 11:17 Pulse Ox 99 08/11/20 11:17 - Orders/Labs/Meds Orders: Active Orders 24 hr Category Date Time Status Peripheral IV Care [RC] . DIRECTED Care 08/11/20 11:47 Active Sodium Chloride 0.9% [Normal Saline] 1,000 ml Med 08/11/20 12:00 Active IV ASDIRECTED Sodium Chloride 0.9% [Saline Flush] Med 08/11/20 11:47 Active 10 ml FLUSH ASDIRECTED PRN Isolation [COMM] Routine Oth 08/11/20 11:48 Ordered Peripheral IV Insertion Adult [OM.PC] Routine Oth 08/11/20 11:47 Ordered Medication Orders Sodium Chloride (Normal Saline) 1,000 mls @ 999 mls/hr IV ASDIRECTED PATY Last Admin: 08/11/20 12:50 Dose: 999 mls/hr Documented by: KAPIL Sodium Chloride (Saline Flush) 10 ml FLUSH ASDIRECTED PRN PRN Reason: Keep Vein Open Last Admin: 08/11/20 12:50 Dose: 10 ml Documented by: KAPIL Labs: Laboratory Tests 08/11/20 08/11/20 08/11/20 Range/Units 12:48 12:48 12:48 WBC 6.90 (3.98-10.04) K/mm3 RBC 4.41 (3.98-5.22) M/mm3 Hgb 11.9 (11.2-15.7) gm/dl Hct 38.3 (34.1-44.9) % MCV 86.8 (79.4-94.8) fl MCH 27.0 (25.6-32.2) pg MCHC 31.1 L (32.2-35.5) g/dl RDW Std Deviation 49.5 H (36.4-46.3) fL Plt Count 413 H (182-369) K/mm3 MPV 9.9 (9.4-12.3) fl Neutrophils % (Manual) 41 (40-60) % Band Neutrophils % 0 (0-10) % Lymphocytes % (Manual) 55 H (20-40) % Atypical Lymphs % 0 % Monocytes % (Manual) 4 (2-10) % Eosinophils % (Manual) 0 L (0.7-5.8) % Basophils % (Manual) 0 L (0.1-1.2) Platelet Estimate Increased RBC Morph Comment Normal Sodium 140 (136-145) mEq/L Potassium 3.4 L (3.5-5.1) mEq/L Chloride 104 (98-107) mEq/L Carbon Dioxide 28 (21-32) mEq/L Anion Gap 11.4 (5-15) BUN 6 L (7-18) mg/dL Creatinine 0.9 (0.55-1.02) mg/dL Est Cr Clr Drug Dosing 96.15 mL/min Estimated GFR (MDRD) > 60 (>60) mL/min BUN/Creatinine Ratio 6.7 L (14-18) Glucose 99 (74-106) mg/dL Calcium 9.2 (8.5-10.1) mg/dL Total Bilirubin 0.5 (0.2-1.0) mg/dL AST 14 L (15-37) U/L ALT 25 (14-59) U/L Alkaline Phosphatase 78 (46-116) U/L Total Protein 8.1 (6.4-8.2) g/dl Albumin 3.4 (3.4-5.0) g/dl Globulin 4.7 gm/dL Albumin/Globulin Ratio 0.7 L (1-2) HCG, Qual Negative (NEGATIVE) Urine Color (Yellow) Urine Appearance (Clear) Urine pH (5.0-8.0) Ur Specific [place] (1.005-1.030) Urine Protein (Negative) Urine Glucose (UA) (Negative) Urine Ketones (Negative) Urine Occult Blood (Negative) Urine Nitrite (Negative) Urine Bilirubin (Negative) Urine Urobilinogen (0.2-1.0) Ur Leukocyte Esterase (Negative) Urine RBC (0-5) /hpf Urine WBC (0-5) /hpf Ur Squamous Epith Cells (0-5) /hpf Urine Bacteria (FEW) /hpf Urine Mucus (FEW) /hpf 08/11/20 Range/Units 13:45 WBC (3.98-10.04) K/mm3 RBC (3.98-5.22) M/mm3 Hgb (11.2-15.7) gm/dl Hct (34.1-44.9) % MCV (79.4-94.8) fl MCH (25.6-32.2) pg MCHC (32.2-35.5) g/dl RDW Std Deviation (36.4-46.3) fL Plt Count (182-369) K/mm3 MPV (9.4-12.3) fl Neutrophils % (Manual) (40-60) % Band Neutrophils % (0-10) % Lymphocytes % (Manual) (20-40) % Atypical Lymphs % % Monocytes % (Manual) (2-10) % Eosinophils % (Manual) (0.7-5.8) % Basophils % (Manual) (0.1-1.2) Platelet Estimate RBC Morph Comment Sodium (136-145) mEq/L Potassium (3.5-5.1) mEq/L Chloride (98-107) mEq/L Carbon Dioxide (21-32) mEq/L Anion Gap (5-15) BUN (7-18) mg/dL Creatinine (0.55-1.02) mg/dL Est Cr Clr Drug Dosing mL/min Estimated GFR (MDRD) (>60) mL/min BUN/Creatinine Ratio (14-18) Glucose (74-106) mg/dL Calcium (8.5-10.1) mg/dL Total Bilirubin (0.2-1.0) mg/dL AST (15-37) U/L ALT (14-59) U/L Alkaline Phosphatase (46-116) U/L Total Protein (6.4-8.2) g/dl Albumin (3.4-5.0) g/dl Globulin gm/dL Albumin/Globulin Ratio (1-2) HCG, Qual (NEGATIVE) Urine Color Yellow (Yellow) Urine Appearance Clear (Clear) Urine pH 7.0 (5.0-8.0) Ur Specific [place] 1.020 (1.005-1.030) Urine Protein Negative (Negative) Urine Glucose (UA) Negative (Negative) Urine Ketones Negative (Negative) Urine Occult Blood Negative (Negative) Urine Nitrite Negative (Negative) Urine Bilirubin Negative (Negative) Urine Urobilinogen 0.2 (0.2-1.0) Ur Leukocyte Esterase Negative (Negative) Urine RBC 0-5 (0-5) /hpf Urine WBC 0-5 (0-5) /hpf Ur Squamous Epith Cells 5-10 H (0-5) /hpf Urine Bacteria Few (FEW) /hpf Urine Mucus Few (FEW) /hpf Meds: Medications Generic Name Dose Route Start Last Admin Trade Name Freq PRN Reason Stop Dose Admin Sodium Chloride 1,000 mls @ 999 mls/hr 08/11/20 12:00 08/11/20 12:50 Normal Saline IV 999 mls/hr ASDIRECTED PATY Administration Sodium Chloride 10 ml 08/11/20 11:47 08/11/20 12:50 Saline Flush FLUSH 10 ml ASDIRECTED PRN Administration Keep Vein Open Discontinued Medications Generic Name Dose Route Start Last Admin Trade Name Freq PRN Reason Stop Dose Admin Ondansetron HCl 4 mg 08/11/20 11:46 08/11/20 12:47 Zofran IVPUSH 08/11/20 11:47 4 mg ONETIME ONE Administration - Re-Assessments/Exams Free Text/Narrative Re-Assessment/Exam: 08/11/20 11:56 Patient presents to the ED for evaluation of her low abdomen pain. Have ordered IV to be placed, basic labs to be obtained along with a serum hCG initially, we will await imaging until we get results of this. She will also have a flu swab done as well as a COVID-19 swab; due to the history of high fever at home. 08/11/20 13:34 The patient's influenza swab was negative, test was negative as well. Metabolic panel was unremarkable for acute abnormalities. At this time we will do an abdomen pelvis without contrast for further evaluation. 08/11/20 14:[address] did demonstrate multiple relatively small mesenteric lymph nodes most pronounced in the right lower quadrant, that may represent mesenteric adenitis, moderate bladder wall thickening, which could be due to some distention, but it also could represent cystitis. No sign of urinary calculi, or obstruction, lack of IV contrast limits evaluation for pyelonephritis. I do believe that the patient does have a mild UTI, along with the mesenteric adenitis as commented on the CT. She will be started on a course of antibiotics for this, and have her take some ibuprofen for the next couple days to relieve some of the inflammation causing the adenitis. Departure - Departure Time of Disposition: 14:41 Disposition: Home, Self-Care 01 Condition: Good Clinical Impression: Acute mesenteric adenitis UTI (urinary tract infection) Qualifiers: Urinary tract infection type: acute cystitis Hematuria presence: with hematuria Qualified Code(s): N30.01 - Acute cystitis with hematuria - Discharge Information *PRESCRIPTION DRUG MONITORING PROGRAM REVIEWED*: No *COPY OF PRESCRIPTION DRUG MONITORING REPORT IN PATIENT TAI: No Prescriptions: Cefdinir [Omnicef] 300 mg PO BID 5 Days #10 cap Instructions: Mesenteric Adenitis, Adult, Urinary Tract Infection, Adult, [id number] Referrals: Daniel Fitzgerald MD [Primary Care Provider] - Forms: ED Department Discharge, ED Return to Work/School Form Additional Instructions: You have been evaluated in the ED for your urinary symptoms/ ongoing lower abdomen pain. Your urinalysis was consistent with an acute urinary tract infection. Your urine was sent for culture, and you will be notified if you should need a change in your antibiotic. This may take up to 48 hours to result. You have been given a prescription for Omnicef (cefdinir), 300 mg 1 tablet 2 times a day for 5 days. This has been electronically sent to the [facility] pharmacy located near [facility]. Please increase your oral fluid intake and try to stay adequately hydrated. Your CT also demonstrated some inflammation of some of the lymph nodes in your lower abdomen, which is called mesenteric adenitis. This is most likely caused by a virus and illness, recommendations for treatment would be NSAID therapy, so 60 mg ibuprofen every 6 hours for further symptomatic relief. Do not exceed 3200 mg ibuprofen in a 24-hour time span. I would recommend that you do this for the next week or so, until symptoms seem to get better. Please follow-up with your regular care provider, sometime within the next week to make sure that your symptoms are getting better as expected. Please return to the ED if your symptoms change or worsen. Sepsis Event Note (ED) - Evaluation Sepsis Screening Result: No Definite Risk - Focused Exam Vital Signs: Vital Signs Temp Pulse Resp BP Pulse Ox 08/11/20 11:17 97.9 F 70 20 117/64 99 - My Orders Last 24 Hours: My Active Orders 08/11/20 11:47 Peripheral IV Care [RC] . DIRECTED Sodium Chloride 0.9% [Saline Flush] 10 ml FLUSH ASDIRECTED PRN Peripheral IV Insertion Adult [OM.PC] Routine 08/11/20 11:48 Isolation [COMM] Routine 08/11/20 12:00 Sodium Chloride 0.9% [Normal Saline] 1,000 ml IV ASDIRECTED - Assessment/Plan Last 24 Hours: My Active Orders 08/11/20 11:47 Peripheral IV Care [RC] . DIRECTED Sodium Chloride 0.9% [Saline Flush] 10 ml FLUSH ASDIRECTED PRN Peripheral IV Insertion Adult [OM.PC] Routine 08/11/20 11:48 Isolation [COMM] Routine 08/11/20 12:00 Sodium Chloride 0.9% [Normal Saline] 1,000 ml IV ASDIRECTED
[2020-08-11] MEDS ORDERED: Sodium Chloride 0.9% 1,000 ML IV SCH (12:00)
--- NOTE | 2020-08-11 14:32 | CT ---
"PROCEDURE INFORMATION: Exam: CT Abdomen And Pelvis Without Contrast Exam date and time: 08/11/2020 2:43 PM Age: 19 years old Clinical indication: Abdominal pain; Localized; Right lower quadrant (rlq); Patient HX: PT stated that she has been having pain for 10 days right now; Additional info: ? Pyelo TECHNIQUE: Imaging protocol: Computed tomography of the abdomen and pelvis without contrast. Radiation optimization: All CT scans at this facility use at least one of these dose optimization techniques: automated exposure control; mA and/or kV adjustment per patient size (includes targeted exams where dose is matched to clinical indication); or iterative reconstruction. COMPARISON: CT Abdomen Pelvis w Cont 05/11/2020 1:50 PM FINDINGS: Liver: Normal. No mass. Gallbladder and bile ducts: Normal. No calcified stones. No ductal dilation. Pancreas: Normal. No ductal dilation. Spleen: Normal. No splenomegaly. Adrenal glands: Normal. No mass. Kidneys and ureters: Normal. No hydronephrosis. Stomach and bowel: Unremarkable. No obstruction. No mucosal thickening. Appendix: No evidence of appendicitis. Intraperitoneal space: Unremarkable. No free air. No significant fluid collection. Vasculature: Unremarkable. No abdominal aortic aneurysm. Lymph nodes: There are scattered relatively small mesenteric lymph nodes most prominent in the right lower quadrant. Urinary bladder: The bladder wall is moderately thickened. Reproductive: Unremarkable as visualized. Bones/joints: Unremarkable. No acute fracture. Soft tissues: Small periumbilical hernias containing fat. JAVIER JUAREZ | Final Radiology Report CONFIDENTIALITY STATEMENT This report is intended only for use by the referring physician, and only in accordance with law. If you received this in error, call [phone]. Page 2 of 2 Other findings: The lack of intravenous contrast material limits evaluation of the abdominal/pelvic organs. IMPRESSION: 1. No evidence for urinary tract calculi or urinary tract obstruction. The lack of intravenous contrast material limits evaluation for pyelonephritis. 2. Moderate bladder wall thickening. While this may at least in part be due to degree of distension, in the appropriate clinical setting, could represent cystitis. 3. Multiple relatively small mesenteric lymph nodes most pronounced in the right lower quadrant. May represent mesenteric adenitis. Thank you for allowing us to participate in the care of your patient. Dictated and Authenticated by: Brennon Morris MD 08/11/2020 3:29 PM Central Time ([place] & [place]) ROM[place]"
== END 2020-08-11 15:20 | disposition home or self-care (01) ==
LOC: JD.ED 11:05
DX: N30.01 Acute cystitis with hematuria (principal); I88.0 Nonspecific mesenteric lymphadenitis; E66.9 Obesity, unspecified; Z68.37 Body mass index [BMI] 37.0-37.9, adult; Z88.1 Allergy status to other antibiotic agents; Z91.018 Allergy to other foods; Z91.013 Allergy to seafood
CPT/HCPCS: 36415; 74176; 80053; 81001; 84703; 85007; 85027; 87804; 96374; 99284; J2405; J7030

== ENCOUNTER 2020-09-17 10:11 | Emergency (ER) | payer MEDICAID ==
[2020-09-17] MEDS ORDERED: Metoclopramide 10 MG/2 ML SDV IVPUSH ONE (10:24)
[2020-09-17] MEDS ORDERED: Sodium Chloride 0.9% 10 ML Syringe FLUSH PRN (10:24)
[2020-09-17] MEDS ORDERED: Lactated Ringers 1,000 ML IV SCH (10:30)
--- NOTE | 2020-09-17 10:31 | EDM.PDOC ---
ED HPI GENERAL MEDICAL PROBLEM - General Chief Complaint: Neuro Symptoms/Deficits Stated Complaint: [facility] Time Seen by Provider: 09/17/20 10:16 Source of Information: Reports: Patient, EMS History Limitations: Reports: No Limitations - History of Present Illness INITIAL COMMENTS - FREE TEXT/NARRATIVE: The patient presents by [facility] for syncope. The patient is at 7 weeks gestation with a LNMP of July 28. She said she has been having nausea and vomiting with this . She is taking zofran as needed for this but it has not been helping. She has not been able to eat or drink much for the past few days. She also has been having right sided abdominal pain. She did have an US done at [facility] and does not know the results. She is following up tomorrow with Dr Salomon and it sounds like she will be having another US. She has been having some spotting a few days ago. Today she was at work and felt lightheaded and passed out. She does not think she hit her head or hurt her neck. She still has the pain to the right side of her abdomen. Onset: Sudden Duration: Minutes: Location: Reports: Abdomen Quality: Reports: Sharp Severity: Mild Improves with: Reports: None Worsens with: Reports: None Associated Symptoms: Reports: Nausea/Vomiting. 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 Denies: Fever, Chills HEENT: Reports: No Symptoms Respiratory: Reports: No Symptoms Cardiovascular: Reports: No Symptoms Endocrine: Reports: No Symptoms GI/Abdominal: Reports: Abdominal Pain, Nausea, Vomiting. Denies: Diarrhea : Reports: No Symptoms Musculoskeletal: Reports: No Symptoms ED EXAM, NEURO - Physical Exam Exam: See Below Exam Limited By: No Limitations General Appearance: Alert, No Apparent Distress Ears: Normal External Exam Nose: Normal Inspection Head Exam: Atraumatic, Normocephalic Neck: Normal Inspection Respiratory/Chest: No Respiratory Distress, Lungs Clear, Normal Breath Sounds Cardiovascular: Regular Rate, Rhythm, No Edema, No Murmur GI/Abdominal: Soft, No Organomegaly, No Mass, Other (Mild tenderness to the right upper and lower abdomen) Neurological: Alert, No Motor/Sensory Deficits, Oriented x 3 Course - Vital Signs Last Recorded V/S: Last Vital Signs Temp 98.2 F 09/17/20 10:13 Pulse 58 L 09/17/20 10:13 Resp 16 09/17/20 10:13 BP 124/67 09/17/20 10:13 Pulse Ox 100 09/17/20 10:13 - Orders/Labs/Meds Orders: Active Orders 24 hr Category Date Time Status Peripheral IV Care [RC] . DIRECTED Care 09/17/20 10:24 Active Lactated Ringers [Ringers, Lactated] 1,000 ml Med 09/17/20 10:30 Active IV ASDIRECTED Sodium Chloride 0.9% [Saline Flush] Med 09/17/20 10:24 Active 10 ml FLUSH ASDIRECTED PRN ED Antiemetic Medication Reflex [OM.PC] Stat Oth 09/17/20 10:24 Ordered Peripheral IV Insertion Adult [OM.PC] Stat Oth 09/17/20 10:24 Ordered Medication Orders Lactated Ringer's (Ringers, Lactated) 1,000 mls @ 125 mls/hr IV ASDIRECTED PATY Last Admin: 09/17/20 11:36 Dose: 125 mls/hr Documented by: CLARISSE Sodium Chloride (Saline Flush) 10 ml FLUSH ASDIRECTED PRN PRN Reason: Keep Vein Open Last Admin: 09/17/20 11:36 Dose: 10 ml Documented by: CLARISSE Labs: Laboratory Tests 09/17/20 09/17/20 09/17/20 Range/Units 11:35 11:50 11:50 WBC 7.40 (3.98-10.04) K/mm3 RBC 4.07 (3.98-5.22) M/mm3 Hgb 11.2 (11.2-15.7) gm/dl Hct 34.8 (34.1-44.9) % MCV 85.5 (79.4-94.8) fl MCH 27.5 (25.6-32.2) pg MCHC 32.2 (32.2-35.5) g/dl RDW Std Deviation 46.7 H (36.4-46.3) fL Plt Count 338 D (182-369) K/mm3 MPV 9.6 (9.4-12.3) fl Neut % (Auto) 53.9 (34.0-71.1) % Lymph % (Auto) 38.4 (19.3-51.7) % Kendall % (Auto) 6.8 (4.7-12.5) % Eos % (Auto) 0.7 (0.7-5.8) Baso % (Auto) 0.1 (0.1-1.2) % Neut # (Auto) 3.99 (1.56-6.13) K/mm3 Lymph # (Auto) 2.84 (1.18-3.74) K/mm3 Kendall # (Auto) 0.50 H (0.24-0.36) K/mm3 Eos # (Auto) 0.05 (0.04-0.36) K/mm3 Baso # (Auto) 0.01 (0.01-0.08) K/mm3 Sodium 133 L (136-145) mEq/L Potassium 3.7 (3.5-5.1) mEq/L Chloride 100 (98-107) mEq/L Carbon Dioxide 24 (21-32) mEq/L Anion Gap 12.7 (5-15) BUN 12 (7-18) mg/dL Creatinine 1.1 H (0.55-1.02) mg/dL Est Cr Clr Drug Dosing 78.67 mL/min Estimated GFR (MDRD) > 60 (>60) mL/min BUN/Creatinine Ratio 10.9 L (14-18) Glucose 79 (74-106) mg/dL Calcium 8.9 (8.5-10.1) mg/dL Total Bilirubin 0.4 (0.2-1.0) mg/dL AST 13 L (15-37) U/L ALT 25 (14-59) U/L Alkaline Phosphatase 58 (46-116) U/L Total Protein 8.0 (6.4-8.2) g/dl Albumin 3.4 (3.4-5.0) g/dl Globulin 4.6 gm/dL Albumin/Globulin Ratio 0.7 L (1-2) Lipase 86 (73-393) U/L HCG, Quant mIU/mL Urine Color Yellow (Yellow) Urine Appearance Clear (Clear) Urine pH 6.5 (5.0-8.0) Ur Specific Omer 1.025 (1.005-1.030) Urine Protein Negative (Negative) Urine Glucose (UA) Negative (Negative) Urine Ketones Negative (Negative) Urine Occult Blood Negative (Negative) Urine Nitrite Negative (Negative) Urine Bilirubin Negative (Negative) Urine Urobilinogen 1.0 (0.2-1.0) Ur Leukocyte Esterase Negative (Negative) Urine RBC 0-5 (0-5) /hpf Urine WBC 0-5 (0-5) /hpf Ur Epithelial Cells 5-10 H (0-5) /hpf Ur Transition Epith Cell 0-5 (0-5) Urine Bacteria Moderate H (FEW) /hpf Urine Mucus Few (FEW) /hpf 09/17/20 Range/Units 11:50 WBC (3.98-10.04) K/mm3 RBC (3.98-5.22) M/mm3 Hgb (11.2-15.7) gm/dl Hct (34.1-44.9) % MCV (79.4-94.8) fl MCH (25.6-32.2) pg MCHC (32.2-35.5) g/dl RDW Std Deviation (36.4-46.3) fL Plt Count (182-369) K/mm3 MPV (9.4-12.3) fl Neut % (Auto) (34.0-71.1) % Lymph % (Auto) (19.3-51.7) % Kendall % (Auto) (4.7-12.5) % Eos % (Auto) (0.7-5.8) Baso % (Auto) (0.1-1.2) % Neut # (Auto) (1.56-6.13) K/mm3 Lymph # (Auto) (1.18-3.74) K/mm3 Kendall # (Auto) (0.24-0.36) K/mm3 Eos # (Auto) (0.04-0.36) K/mm3 Baso # (Auto) (0.01-0.08) K/mm3 Sodium (136-145) mEq/L Potassium (3.5-5.1) mEq/L Chloride (98-107) mEq/L Carbon Dioxide (21-32) mEq/L Anion Gap (5-15) BUN (7-18) mg/dL Creatinine (0.55-1.02) mg/dL Est Cr Clr Drug Dosing mL/min Estimated GFR (MDRD) (>60) mL/min BUN/Creatinine Ratio (14-18) Glucose (74-106) mg/dL Calcium (8.5-10.1) mg/dL Total Bilirubin (0.2-1.0) mg/dL AST (15-37) U/L ALT (14-59) U/L Alkaline Phosphatase (46-116) U/L Total Protein (6.4-8.2) g/dl Albumin (3.4-5.0) g/dl Globulin gm/dL Albumin/Globulin Ratio (1-2) Lipase (73-393) U/L HCG, Quant 77344.0 mIU/mL Urine Color (Yellow) Urine Appearance (Clear) Urine pH (5.0-8.0) Ur Specific Omer (1.005-1.030) Urine Protein (Negative) Urine Glucose (UA) (Negative) Urine Ketones (Negative) Urine Occult Blood (Negative) Urine Nitrite (Negative) Urine Bilirubin (Negative) Urine Urobilinogen (0.2-1.0) Ur Leukocyte Esterase (Negative) Urine RBC (0-5) /hpf Urine WBC (0-5) /hpf Ur Epithelial Cells (0-5) /hpf Ur Transition Epith Cell (0-5) Urine Bacteria (FEW) /hpf Urine Mucus (FEW) /hpf Meds: Medications Generic Name Dose Route Start Last Admin Trade Name Freq PRN Reason Stop Dose Admin Lactated Ringer's 1,000 mls @ 125 mls/hr 09/17/20 10:30 09/17/20 11:36 Ringers, Lactated IV 125 mls/hr ASDIRECTED PATY Administration Sodium Chloride 10 ml 09/17/20 10:24 09/17/20 11:36 Saline Flush FLUSH 10 ml ASDIRECTED PRN Administration Keep Vein Open Discontinued Medications Generic Name Dose Route Start Last Admin Trade Name Freq PRN Reason Stop Dose Admin Metoclopramide HCl 10 mg 09/17/20 10:24 09/17/20 11:37 Reglan IVPUSH 09/17/20 10:25 10 mg ONETIME ONE Administration - Re-Assessments/Exams Free Text/Narrative Re-Assessment/Exam: 09/17/20 10:33 I ordered an IV LR 1L bolus, reglan 10mg IV, labs, UA and a transvaginal US. 09/17/20 13:05 Her CBC looks good. Her Na was a little low at 133. Her lipase is normal. Her HCG is elevated at 87,757. Her UA shows no UTI. Her US shows IUP at 7 weeks and 1 day. Very minimal subchorionic hemorrhage is seen. She feels better after the fluids and reglan. I will try her on some reglan. Departure - Departure Time of Disposition: 13:10 Disposition: Home, Self-Care 01 Condition: Good Clinical Impression: Dehydration Syncope Qualifiers: Syncope type: unspecified Qualified Code(s): R55 - Syncope and collapse Nausea and vomiting Qualifiers: Vomiting type: unspecified Vomiting Intractability: non-intractable Qualified Code(s): R11.2 - Nausea with vomiting, unspecified Qualifiers: Weeks of gestation: less than 8 weeks Qualified Code(s): Z3A.01 - Less than 8 weeks gestation of Subchorionic hematoma in first trimester Qualifiers: Fetus number: single or unspecified fetus Qualified Code(s): O41.8X10 - Other specified disorders of amniotic fluid and membranes, first trimester, not applicable or unspecified; O46.8X1 - Other antepartum hemorrhage, first trimester - Discharge Information *PRESCRIPTION DRUG MONITORING PROGRAM REVIEWED*: Not Applicable *COPY OF PRESCRIPTION DRUG MONITORING REPORT IN PATIENT TAI: Not Applicable Referrals: Jammie Salomon MD [Primary Care Provider] - 1 Day Forms: ED Department Discharge, ED Return to Work/School Form Additional Instructions: Drink plenty of fluids. Try the reglan 10mg every 6 hours as needed for nausea and vomiting. No vaginal intercourse and no lifting over [address] Salomon releases you. Follow up with her tomorrow. Please return if you are worse. Sepsis Event Note (ED) - Evaluation Sepsis Screening Result: No Definite Risk - Focused Exam Vital Signs: Vital Signs Temp Pulse Resp BP Pulse Ox 09/17/20 10:13 98.2 F 58 L 16 124/67 100 - My Orders Last 24 Hours: My Active Orders 09/17/20 10:24 Peripheral IV Care [RC] . DIRECTED Sodium Chloride 0.9% [Saline Flush] 10 ml FLUSH ASDIRECTED PRN ED Antiemetic Medication Reflex [OM.PC] Stat Peripheral IV Insertion Adult [OM.PC] Stat 09/17/20 10:30 Lactated Ringers [Ringers, Lactated] 1,000 ml IV ASDIRECTED - Assessment/Plan Last 24 Hours: My Active Orders 09/17/20 10:24 Peripheral IV Care [RC] . DIRECTED Sodium Chloride 0.9% [Saline Flush] 10 ml FLUSH ASDIRECTED PRN ED Antiemetic Medication Reflex [OM.PC] Stat Peripheral IV Insertion Adult [OM.PC] Stat 09/17/20 10:30 Lactated Ringers [Ringers, Lactated] 1,000 ml IV ASDIRECTED
--- NOTE | 2020-09-17 11:44 | US ---
First trimester obstetrical ultrasound: Multiple real-time images were obtained transvaginally. Comparison: No previous study. Dates: Current ultrasound: KATELIN 05/05/21, gestational age 7 weeks 1 day Single intrauterine gestational sac is seen. Small pole and yolk sac are present. Very minimal subchorionic hemorrhage is seen. Both maternal ovaries appear within normal limits. Very minimal fluid is seen within the cul-de-sac. Measurements: [place] Brow-rump length: 1.04 cm - 7 weeks 1 day Heart rate: 161 bpm Impression: 1. Single intrauterine fetus. Dates as noted above. 2. Several findings as noted above which will hopefully be incidental. Diagnostic code #2
== END 2020-09-17 13:30 | disposition home or self-care (01) ==
LOC: JD.ED 10:11
DX: O20.8 Other hemorrhage in early pregnancy (principal); O21.9 Vomiting of pregnancy, unspecified; O99.281 Endocrine, nutritional and metabolic diseases complicating pregnancy, first trimester; E86.0 Dehydration; Z68.41 Body mass index [BMI] 40.0-44.9, adult; O99.211 Obesity complicating pregnancy, first trimester; Z91.013 Allergy to seafood; Z91.018 Allergy to other foods; Z88.1 Allergy status to other antibiotic agents; Z3A.01 Less than 8 weeks gestation of pregnancy
CPT/HCPCS: 36415; 76817; 76817-26; 80053; 81001; 83690; 84702; 85025; 96374; 99284; 99284-25; J2765; J7120

== ENCOUNTER 2020-10-15 12:38 | Emergency (ER) | payer MEDICAID ==
[2020-10-15] MEDS ORDERED: Metoclopramide 10 MG/2 ML SDV IVPUSH ONE (13:06)
[2020-10-15] MEDS ORDERED: diphenhydrAMINE 50 MG/ML SDV IVPUSH ONE (13:07)
--- NOTE | 2020-10-15 13:11 | EDM.PDOC ---
ED HPI GENERAL MEDICAL PROBLEM - General Chief Complaint: Abdominal Pain Stated Complaint: VOMITING Time Seen by Provider: 10/15/20 13:00 Source of Information: Reports: Patient History Limitations: Reports: No Limitations - History of Present Illness INITIAL COMMENTS - FREE TEXT/NARRATIVE: 19-year-old female presents to the ED for evaluation of recurrent nausea and vomiting during . Patient is currently approximately 11 weeks and 1 day . Last known menstrual period was July 28, 2020. Estimated date of confinement is May 04, 2021. Patient reports vomiting almost anything that she is eaten in the last 24 hours and small quantities of bilious emesis. She reports she did have a very hard and painful to pass stool last night with bleeding per rectum afterwards. She reports her rectum remains sore. She did not identify any sores or swellings of the rectum. She feels lightheaded and dizzy upon standing. Of note she is 3 para 2 and did not have severe hyperemesis gravidarum with either 1 of these pregnancies. Denies any fever or chills. Denies any dysuria. Patient has Zofran at home but it is not helping to control the vomiting. Patient also has Reglan 10 mg tablets at home to relieve nausea. Onset: Other (Recurrent nausea and vomiting in she reports for the better part of 2 months.) Duration: Day(s):, Chronic, Getting Worse Location: Reports: Abdomen (Recurrent vomiting. Does have diffuse upper abdominal discomfort from vomiting so much.), Other (Rectal pain after passing a hard constipated stool last night.) Quality: Reports: Other Severity: Severe (Recurrent nausea and vomiting. Nothing is stayed down for the last 24 hours.) Improves with: Reports: None Worsens with: Reports: None Context: Denies: Activity, Exercise, Lifting, Sick Contact, Trauma, Other Associated Symptoms: Reports: Loss of Appetite, Malaise, Nausea/Vomiting (Actable nausea and vomiting), Weakness, Other (Lightheaded dizzy upon standing.). 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: Other (see below) (Zofran 4 mg sublingual as needed.) Abdominal Pain Score (Numeric/FACES): 4 Rectal Pain Score (Numeric/FACES): 10 - Related Data Allergies Allergy/AdvReac Type Severity Reaction Status Date / Time nitrofurantoin Allergy Severe Hives Verified 10/15/20 14:04 [From Macrobid] nut - unspecified Allergy Severe Bronchospas Verified 10/15/20 14:04 ms shellfish derived Allergy Severe Facial Verified 10/15/20 14:04 Swelling Home Meds: Home Meds Metoclopramide HCl [Reglan] 10 mg PO Q6H PRN #30 tablet 09/17/20 [Rx] Ondansetron [Zofran] 4 mg SL Q6H PRN 09/17/20 [History] Doxylamine Succinate/Vit B6 [Diclegis Dr 10-10 mg Tablet] 1 each PO DAILY #14 tablet. 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 Last known menstrual period is July 28, 2020 and EDC has been set at May 04, 2021) : 3 Para: 2 Endocrine/Metabolic History: Reports: Obesity/BMI 30+ Hematologic History: Reports: None Immunologic History: Reports: None - Past Surgical History GI Surgical History: Reports: Appendectomy Social & Family History - Family History Family Medical History: No Pertinent Family History - Caffeine Use Caffeine Use: Reports: None - Living Situation & Occupation Living situation: Reports: Single Occupation: Employed [facility] [employer] GENERAL - Review of Systems Review Of Systems: See Below Constitutional: Reports: Malaise, Weakness, Fatigue, Decreased Appetite, Weight Loss (Believes she may has lost as much as 10 pounds during .). Denies: Fever, Chills HEENT: Reports: No Symptoms, Other Respiratory: Reports: No Symptoms (Dry mouth) Cardiovascular: Reports: No Symptoms Endocrine: Reports: Fatigue GI/Abdominal: Reports: Abdominal Pain (Abdominal pain epigastrium from vomiting so much.), Other (Rectal pain after passing a hard constipated stool last night with rectal bleeding.) : Reports: Frequency. Denies: Dysuria, Urgency Musculoskeletal: Reports: No Symptoms Skin: Reports: No Symptoms Neurological: Reports: Dizziness (Upon standing.). Denies: Confusion Psychiatric: Reports: No Symptoms Hematologic/Lymphatic: Reports: No Symptoms Immunologic: Reports: No Symptoms ED EXAM, GI/ABD - Physical Exam Exam: See Below Exam Limited By: No Limitations General Appearance: Alert, WD/WN, Mild Distress, Other (Temperature is 36.8 degrees. Heart rate 90 in sinus respiratory to 18 with O2 sats of 98% room air BP 11/01/1975.) Eyes: Bilateral: Normal Appearance (No blepharal pallor or scleral icterus.) Throat/Mouth: Other (Tongue is quite dry.) Head: Atraumatic, Normocephalic Neck: Normal Inspection, Supple, Non-Tender, Full Range of Motion. No: Lymphadenopathy (L), Lymphadenopathy (R) Respiratory/Chest: No Respiratory Distress, Lungs Clear, Normal Breath Sounds, No Accessory Muscle Use Cardiovascular: Normal Peripheral Pulses, Regular Rate, Rhythm, No Edema, No Gallop, No Murmur, No Rub GI/Abdominal Exam: Normal Bowel Sounds, Soft, Non-Tender, No Organomegaly, No Mass, Pelvis Stable, Other (Mildly obese) Rectal (Female) Exam: Other (No external hemorrhoids identified.) Back Exam: Normal Inspection, Full Range of Motion. No: CVA Tenderness (L), CVA Tenderness (R) Extremities: Normal Inspection, Normal Range of Motion, Non-Tender, No Pedal Edema Neurological: Alert, Oriented, CN II-XII Intact, Normal Cognition Psychiatric: Normal Affect, Normal Mood Skin Exam: Warm, Dry, Intact, Normal Color, No Rash Course - Vital Signs Last Recorded V/S: Last Vital Signs Temp 36.8 C 10/15/20 12:45 Pulse 90 10/15/20 12:45 Resp 18 10/15/20 12:45 BP 123/76 10/15/20 12:45 Pulse Ox 98 10/15/20 12:45 - Orders/Labs/Meds Orders: Active Orders 24 hr Category Date Time Status URINALYSIS W/MICROSCOPIC [UA W/MICROSCOPIC] [URIN] Stat Lab 10/15/20 13:08 Ordered Dextrose 5%-Lactated Ringers 1,000 ml Med 10/15/20 13:15 Active IV ASDIRECTED Dextrose 5%-Lactated Ringers 1,000 ml Med 10/15/20 14:15 Active IV ASDIRECTED Medication Orders Dextrose/Lactated Ringer's (Dextrose 5%-Lactated Ringers) 1,000 mls @ 999 mls/hr IV ASDIRECTED PATY Last Admin: 10/15/20 13:27 Dose: 999 mls/hr Documented by: FAY Dextrose/Lactated Ringer's (Dextrose 5%-Lactated Ringers) 1,000 mls @ 999 mls/hr IV ASDIRECTED PATY Last Admin: 10/15/20 14:46 Dose: 999 mls/hr Documented by: FAY Labs: Laboratory Tests 10/15/20 10/15/20 10/15/20 Range/Units 13:05 13:05 13:05 WBC 7.12 (3.98-10.04) K/mm3 RBC 4.26 (3.98-5.22) M/mm3 Hgb 11.8 (11.2-15.7) gm/dl Hct 35.7 (34.1-44.9) % MCV 83.8 (79.4-94.8) fl MCH 27.7 (25.6-32.2) pg MCHC 33.1 (32.2-35.5) g/dl RDW Std Deviation 47.0 H (36.4-46.3) fL Plt Count 319 (182-369) K/mm3 MPV 9.8 (9.4-12.3) fl Neut % (Auto) 57.2 (34.0-71.1) % Lymph % (Auto) 34.1 (19.3-51.7) % Shannon % (Auto) 7.9 (4.7-12.5) % Eos % (Auto) 0.7 (0.7-5.8) Baso % (Auto) 0.0 L (0.1-1.2) % Neut # (Auto) 4.07 (1.56-6.13) K/mm3 Lymph # (Auto) 2.43 (1.18-3.74) K/mm3 Shannon # (Auto) 0.56 H (0.24-0.36) K/mm3 Eos # (Auto) 0.05 (0.04-0.36) K/mm3 Baso # (Auto) 0.00 L (0.01-0.08) K/mm3 Sodium 133 L (136-145) mEq/L Potassium 3.4 L (3.5-5.1) mEq/L Chloride 102 (98-107) mEq/L Carbon Dioxide 22 (21-32) mEq/L Anion Gap 12.4 (5-15) BUN 10 (7-18) mg/dL Creatinine 0.8 (0.55-1.02) mg/dL Est Cr Clr Drug Dosing 116.25 mL/min Estimated GFR (MDRD) > 60 (>60) mL/min BUN/Creatinine Ratio 12.5 L (14-18) Glucose 82 (74-106) mg/dL Calcium 9.3 (8.5-10.1) mg/dL Magnesium 1.7 L (1.8-2.4) mg/dl Total Bilirubin 0.6 (0.2-1.0) mg/dL AST 17 (15-37) U/L ALT 31 (14-59) U/L Alkaline Phosphatase 56 (46-116) U/L Total Protein 8.1 (6.4-8.2) g/dl Albumin 3.3 L (3.4-5.0) g/dl Globulin 4.8 gm/dL Albumin/Globulin Ratio 0.7 L (1-2) Lipase 189 (73-393) U/L Ketones 0.59 (0.0-0.3) mM Meds: Medications Generic Name Dose Route Start Last Admin Trade Name Freq PRN Reason Stop Dose Admin Dextrose/Lactated Ringer's 1,000 mls @ 999 mls/hr 10/15/20 13:15 10/15/20 13:27 Dextrose 5%-Lactated Ringers IV 999 mls/hr ASDIRECTED PATY Administration Dextrose/Lactated Ringer's 1,000 mls @ 999 mls/hr 10/15/20 14:15 10/15/20 14:46 Dextrose 5%-Lactated Ringers IV 999 mls/hr ASDIRECTED PATY Administration Discontinued Medications Generic Name Dose Route Start Last Admin Trade Name Freq PRN Reason Stop Dose Admin Diphenhydramine HCl 12.5 mg 10/15/20 13:07 10/15/20 13:25 Benadryl IVPUSH 10/15/20 13:08 12.5 mg ONETIME ONE Administration Metoclopramide HCl 10 mg 10/15/20 13:06 10/15/20 13:23 Reglan IVPUSH 10/15/20 13:07 10 mg ONETIME ONE Administration - Radiology Interpretation Free Text/Narrative:: 19-year-old female presents to the ED due to intractable nausea and vomiting during first semester . Patient history has been vomiting since around 6 weeks gestation. She is currently 11 weeks 1 day according to her last known menstrual period date of July 25. EDC has been set at May 04, 2021. She reports vomiting about 24 times in the last 24 hours. No hematemesis. Emesis has been mostly bilious. Associated diffuse upper abdominal pain from vomiting so much. Last night she had a large constipated stool which was difficult and painful to pass and did precipitate some bleeding per rectum. No obvious ext ernal hemorrhoids on exam .Suspect anal fissure. Plan; IV will be D5 Ringer's lactate at open. Given Reglan 10 mg IV for relief of nausea and vomiting. Routine labs to be collected including serum magnesium and serum ketones. - Re-Assessments/Exams Free Text/Narrative Re-Assessment/Exam: 10/15/20 14:06 Hematology reveals a normal white count at 7.12. The auto differential shows 57.2% neutrophils. Hemoglobin is slightly low at 11.8 with hematocrit of 35.7. MCV is normal at 83.8. Platelet count normal 319,000. Sodium is slightly low at 133 with a potassium slightly low at 3.4. Chloride 102 with a bicarb of 22. Anion gap is 12.4. BUN is 10 with a creatinine of 0.8 and a GFR greater than 60. Glucose is 82. Calcium 9.3 magnesium slightly low at 1.7. Liver function normal total protein 8.1 with an albumin fraction of 3.3. Lipase normal at 189. Serum ketones slightly elevated at 0.59. 10/15/20 14:08 patient advised of the laboratory findings with mild hyponatremia and mild hypokalemia. Also mild hypomagnesemia. She will be given a total of 1500 mils of D5 Ringer's lactate. She will be given some crackers to eat here and started on clear fluids. 10/15/20 14:58 her IV was temporarily turned off. She is therefore yet to receive at least another 500 mils of D5 LR. She has taken some crackers. She still feels lightheaded with standing or sitting. Departure - Departure Time of Disposition: 15:26 Disposition: Home, Self-Care 01 Condition: Fair Clinical Impression: Hyperemesis gravidarum before end of 22 week gestation with carbohydrate depletion Qualifiers: Weeks of gestation: less than 8 weeks Qualified Code(s): Z3A.01 - Less than 8 weeks gestation of - Discharge Information *PRESCRIPTION DRUG MONITORING PROGRAM REVIEWED*: Not Applicable *COPY OF PRESCRIPTION DRUG MONITORING REPORT IN PATIENT TAI: Not Applicable Prescriptions: Meclizine [Antivert] 25 mg PO TID #36 tab Doxylamine Succinate/Vit B6 [Diclegis Dr 10-10 mg Tablet] 1 each PO DAILY #14 tablet.dr Instructions: Hyperemesis Gravidarum Referrals: Jammie Salomon MD [Primary Care Provider] - Forms: ED Department Discharge Additional Instructions: Evaluation in the emergency room in regards to recurrent vomiting over the last 24 hours and frequently during this . Lab test revealed no major electrolyte imbalances a mild low serum sodium and potassium and magnesium levels but not enough to have to correct. You were given 1500 mils of IV fluids to provide rehydration and Reglan 10 mg IV for nausea relief. Continue to drain eat 5 or 6 times per day having a little bit in your stomach almost all the time. Suggest soda crackers on your night table and taking them in before you even get out of bed in the morning. Continue Zofran and/or Reglan as necessary for nausea relief. Return to ED or follow-up with SHIP PILOT DISPATCHER provider if vomiting persists over the next 36 to 48 hours as you would require further IV fluid replacement. Sepsis Event Note (ED) - Evaluation Sepsis Screening Result: No Definite Risk - Focused Exam Vital Signs: Vital Signs Temp Pulse Resp BP Pulse Ox 10/15/20 12:45 36.8 C 90 18 123/76 98 - My Orders Last 24 Hours: My Active Orders 10/15/20 13:08 URINALYSIS W/MICROSCOPIC [UA W/MICROSCOPIC] [URIN] Stat 10/15/20 13:15 Dextrose 5%-Lactated Ringers 1,000 ml IV ASDIRECTED 10/15/20 14:15 Dextrose 5%-Lactated Ringers 1,000 ml IV ASDIRECTED - Assessment/Plan Last 24 Hours: My Active Orders 10/15/20 13:08 URINALYSIS W/MICROSCOPIC [UA W/MICROSCOPIC] [URIN] Stat 10/15/20 13:15 Dextrose 5%-Lactated Ringers 1,000 ml IV ASDIRECTED 10/15/20 14:15 Dextrose 5%-Lactated Ringers 1,000 ml IV ASDIRECTED
[2020-10-15] MEDS ORDERED: Dextrose 5%-Lactated Ringers 1,000 ML IV SCH ×2 (13:15→14:15)
== END 2020-10-15 15:50 | disposition home or self-care (01) ==
LOC: JD.ED 12:38 → SUPCPDRO 12:38 → JD.ED 15:50
DX: O21.0 Mild hyperemesis gravidarum (principal); O99.211 Obesity complicating pregnancy, first trimester; O99.281 Endocrine, nutritional and metabolic diseases complicating pregnancy, first trimester; E83.42 Hypomagnesemia; E66.9 Obesity, unspecified; Z3A.11 11 weeks gestation of pregnancy; Z88.1 Allergy status to other antibiotic agents; Z91.018 Allergy to other foods; Z91.013 Allergy to seafood
CPT/HCPCS: 36415; 80053; 81001; 82009; 83690; 83735; 85025; 87086; 96374; 96375; 99284; J1200; J2765; J7121

== ENCOUNTER 2020-11-25 14:48 | Emergency (ER) | payer MEDICAID ==
[2020-11-25] MEDS ORDERED: Sodium Chloride 0.9% 10 ML Syringe FLUSH PRN (15:23)
[2020-11-25] MEDS ORDERED: HYDROmorphone 0.5 MG/0.5 ML Syringe IVPUSH ONE (15:24)
[2020-11-25] MEDS ORDERED: Metoclopramide 10 MG/2 ML SDV IVPUSH ONE (15:24)
--- NOTE | 2020-11-25 15:35 | EDM.PDOC ---
ED HPI GENERAL MEDICAL PROBLEM - General Chief Complaint: Abdominal Pain Stated Complaint: 17 WKS PG/UPPER ABD PAIN R SIDE Time Seen by Provider: 11/25/20 15:00 Source of Information: Reports: Patient, RN Notes Reviewed History Limitations: Reports: No Limitations - History of Present Illness INITIAL COMMENTS - FREE TEXT/NARRATIVE: Patient is a 20-year-old female who presents to the ED for the evaluation of her right upper quadrant abdominal pain. Patient is 17 weeks she is a G3, P2. CARE PROFESSIONAL is Dr. Salomon. Patient notes that the is going well at this time. She states that she developed some pain in her right upper quadrant that radiates to her back, last night. Patient notes that she had some rice and gravy for supper last night but she states the pain was present before this however seems to worsen after that. She notes that she is unable to lay much on her left side or her back due to the pain. She is complaining of some may be fullness to her mid upper abdomen. Patient notes that she had a bowl of cereal at around 9 AM this morning and she has not really had much of an appetite over the last couple days, she states that food has a "aftertaste" so she has not been eating much for solid foods but has been able to tolerate fluids. She does still feel little bit nauseous and had 2 episodes of vomiting last night. Patient had her appendix taken out, but still retains her gallbladder. Patient states she was seen in this ER in October, for-like symptoms and was treated for a urinary tract infection, she states however she did not take the full course of medications as she thought some of the pills had some mold on it. Right Upper Abdomen Pain Score (Numeric/FACES): 9 - Related Data Allergies Allergy/AdvReac Type Severity Reaction Status Date / Time nitrofurantoin Allergy Severe Hives Verified 11/25/20 14:56 [From Macrobid] nut - unspecified Allergy Severe Bronchospas Verified 11/25/20 14:56 ms shellfish derived Allergy Severe Facial Verified 11/25/20 14:56 Swelling Home Meds: Home Meds Meclizine [Antivert] 25 mg PO TID #36 tab 10/15/20 [Rx] Mv-Mn/Iron/FA/Herbal/Digestive [ One Tablet] 1 tab PO DAILY 11/25/20 [History] Past Medical History Gastrointestinal History: Reports: GERD Genitourinary History: Reports: UTI, Recurrent CARE PROFESSIONAL History: Reports: : 3 Para: 2 Musculoskeletal History: Reports: Fracture Endocrine/Metabolic History: Reports: Obesity/BMI 30+ - Infectious Disease History Infectious Disease History: Reports: Influenza - Past Surgical History GI Surgical History: Reports: Appendectomy Musculoskeletal Surgical History: Reports: Other (See Below) Other Musculoskeletal Surgeries/Procedures:: plate to Fx'd clavicle. Social & Family History - Family History Family Medical History: No Pertinent Family History - Tobacco Use Tobacco Use Status *Q: Never Tobacco User - Caffeine Use Caffeine Use: Reports: None - Recreational Drug Use Recreational Drug Use: No - Living Situation & Occupation Living situation: Reports: Single Occupation: Employed ED ROS GENERAL - Review of Systems Review Of Systems: Comprehensive ROS is negative, except as noted in HPI. ED EXAM, GI/ABD - Physical Exam Exam: See Below Exam Limited By: No Limitations General Appearance: Alert, WD/WN, No Apparent Distress Respiratory/Chest: No Respiratory Distress, Lungs Clear, Normal Breath Sounds, No Accessory Muscle Use, Chest Non-Tender Cardiovascular: Normal Peripheral Pulses, Regular Rate, Rhythm, No Edema GI/Abdominal Exam: Normal Bowel Sounds, Soft, No Distention, No Mass, Tender (RUQ/epigastrium tenderness) Extremities: Normal Inspection, Normal Capillary Refill Neurological: Alert, Oriented, Normal Cognition, No Motor/Sensory Deficits Psychiatric: Normal Affect, Normal Mood Skin Exam: Warm, Dry, Intact, Normal Color, No Rash Course - Vital Signs Last Recorded V/S: Last Vital Signs Temp 97.3 F 11/25/20 14:59 Pulse 99 11/25/20 14:59 Resp 18 11/25/20 14:59 BP 132/74 11/25/20 14:59 Pulse Ox 100 11/25/20 14:59 - Orders/Labs/Meds Orders: Active Orders 24 hr Category Date Time Status Peripheral IV Care [RC] . DIRECTED Care 11/25/20 15:23 Active Sodium Chloride 0.9% [Saline Flush] Med 11/25/20 15:23 Active 10 ml FLUSH ASDIRECTED PRN Peripheral IV Insertion Adult [OM.PC] Routine Oth 11/25/20 15:23 Ordered Medication Orders Sodium Chloride (Saline Flush) 10 ml FLUSH ASDIRECTED PRN PRN Reason: Keep Vein Open Last Admin: 11/25/20 15:48 Dose: 10 ml Documented by: DEE Labs: Laboratory Tests 11/25/20 11/25/20 11/25/20 Range/Units 15:05 15:41 15:41 WBC 8.13 (3.98-10.04) K/mm3 RBC 4.10 (3.98-5.22) M/mm3 Hgb 11.5 (11.2-15.7) gm/dl Hct 35.3 (34.1-44.9) % MCV 86.1 (79.4-94.8) fl MCH 28.0 (25.6-32.2) pg MCHC 32.6 (32.2-35.5) g/dl RDW Std Deviation 48.0 H (36.4-46.3) fL Plt Count 321 (182-369) K/mm3 MPV 9.3 L (9.4-12.3) fl Neut % (Auto) 61.9 (34.0-71.1) % Lymph % (Auto) 31.0 (19.3-51.7) % Briscoe % (Auto) 6.3 (4.7-12.5) % Eos % (Auto) 0.6 L (0.7-5.8) Baso % (Auto) 0.1 (0.1-1.2) % Neut # (Auto) 5.03 (1.56-6.13) K/mm3 Lymph # (Auto) 2.52 (1.18-3.74) K/mm3 [place]iscoe # (Auto) 0.51 H (0.24-0.36) K/mm3 Eos # (Auto) 0.05 (0.04-0.36) K/mm3 Baso # (Auto) 0.01 (0.01-0.08) K/mm3 Sodium 138 (136-145) mEq/L Potassium 3.3 L (3.5-5.1) mEq/L Chloride 104 (98-107) mEq/L Carbon Dioxide 21 (21-32) mEq/L Anion Gap 16.3 H (5-15) BUN 5 L (7-18) mg/dL Creatinine 0.7 (0.55-1.02) mg/dL Est Cr Clr Drug Dosing 122.59 mL/min Estimated GFR (MDRD) > 60 (>60) mL/min BUN/Creatinine Ratio 7.1 L (14-18) Glucose 78 (74-106) mg/dL Calcium 9.0 (8.5-10.1) mg/dL Total Bilirubin 0.4 (0.2-1.0) mg/dL GGT 8 (5-55) U/L AST 11 L (15-37) U/L ALT 23 (14-59) U/L Alkaline Phosphatase 57 (46-116) U/L Total Protein 7.4 (6.4-8.2) g/dl Albumin 2.8 L (3.4-5.0) g/dl Globulin 4.6 gm/dL Albumin/Globulin Ratio 0.6 L (1-2) Lipase 144 (73-393) U/L Urine Color Yellow (Yellow) Urine Appearance Clear (Clear) Urine pH 7.0 (5.0-8.0) Ur Specific Oden 1.025 (1.005-1.030) Urine Protein Trace H (Negative) Urine Glucose (UA) Negative (Negative) Urine Ketones 2+ H (Negative) Urine Occult Blood Negative (Negative) Urine Nitrite Negative (Negative) Urine Bilirubin Negative (Negative) Urine Urobilinogen 0.2 (0.2-1.0) Ur Leukocyte Esterase Trace H (Negative) Urine RBC 0-5 (0-5) /hpf Urine WBC 0-5 (0-5) /hpf Ur Squamous Epith Cells 0-5 (0-5) /hpf Urine Bacteria Few (FEW) /hpf Urine Mucus Moderate H (FEW) /hpf Meds: Medications Generic Name Dose Route Start Last Admin Trade Name Freq PRN Reason Stop Dose Admin Sodium Chloride 10 ml 11/25/20 15:23 11/25/20 15:48 Saline Flush FLUSH 10 ml ASDIRECTED PRN Administration Keep Vein Open Discontinued Medications Generic Name Dose Route Start Last Admin Trade Name Freq PRN Reason Stop Dose Admin Hydromorphone HCl 0.5 mg 11/25/20 15:24 11/25/20 15:47 Dilaudid IVPUSH 11/25/20 15:25 0.5 mg ONETIME ONE Administration Metoclopramide HCl 10 mg 11/25/20 15:24 11/25/20 15:45 Reglan IVPUSH 11/25/20 15:25 10 mg ONETIME ONE Administration - Re-Assessments/Exams Free Text/Narrative Re-Assessment/Exam: 11/25/20 15:35 Patient presents to the ED for evaluation of her right upper quadrant pain, we will go ahead and get a abdomen ultrasound to evaluate her gallbladder at this time. Get some labs, place an IV with nausea meds and a small amount of pain medication for ongoing management. 11/25/20 17:22 Ultrasound demonstrates no focal abnormalities of the gallbladder and other structures in the right upper quadrant identified on ultrasound. Labs are also unremarkable, urinalysis is not remarkable for any sign of infection. Will go ahead and treat the patient for a possible ulcer/GERD. We will also make general recommendations to change her vitamins to without iron, as this may be causing some of the taste issue she has been having at home. We will have her follow-up with Dr. Salomon for any ongoing issues but she has no emergent issues identified at today's visit. Departure - Departure Time of Disposition: 17:23 Disposition: Home, Self-Care 01 Condition: Good Clinical Impression: Epigastric abdominal pain affecting GERD (gastroesophageal reflux disease) Qualifiers: Esophagitis presence: esophagitis presence not specified Qualified Code(s): K21.9 - Gastro-esophageal reflux disease without esophagitis - Discharge Information *PRESCRIPTION DRUG MONITORING PROGRAM REVIEWED*: No *COPY OF PRESCRIPTION DRUG MONITORING REPORT IN PATIENT TAI: No Instructions: Food Choices for Gastroesophageal Reflux Disease, Adult, [id number], Abdominal Pain During , [id number] Referrals: Jammie Salomon MD [Primary Care Provider] - Forms: ED Department Discharge, ED Return to Work/School Form Additional Instructions: You were seen in this ER today for your right upper quadrant/epigastric pain that radiates into your back. You had laboratory evaluation, along with ultrasound, and all of these demonstrated no abnormalities. Your gallbladder does not appear to have any stones or any other dysfunction that would be the cause of your pain. It is likely there is a component of reflux, or the possibility of an ulcer causing some of her issues however this is not a diagnosis that can be made in the ER, and will need to have an EGD done at some point to confirm this diagnosis however we can recommend that you take Pepcid, and [id number] antacid on a daily basis, to see if this helps a little bit along with switching her vitamins to vitamins without iron, to help try to reduce the sour aftertaste that you are experiencing. You may take 500 mg Tylenol every 6 hours as needed for further pain or discomfort, do not exceed 4000 mg Tylenol in a 24-hour time span. Recommend you stick to a clear liquid diet for the next 24 to 48 hours, foods such as chicken broth, Gatorade/Powerade would be sufficient. You were given a handout on foods to try to avoid when you have GERD or ulcer issues, please review this to try to prevent further issues. Please return to the ER at any time if symptoms change or worsen. Sepsis Event Note (ED) - Evaluation Sepsis Screening Result: No Definite Risk - Focused Exam Vital Signs: Vital Signs Temp Pulse Resp BP Pulse Ox 11/25/20 14:59 97.3 F 99 18 132/74 100 - My Orders Last 24 Hours: My Active Orders 11/25/20 15:23 Peripheral IV Care [RC] . DIRECTED Sodium Chloride 0.9% [Saline Flush] 10 ml FLUSH ASDIRECTED PRN Peripheral IV Insertion Adult [OM.PC] Routine - Assessment/Plan Last 24 Hours: My Active Orders 11/25/20 15:23 Peripheral IV Care [RC] . DIRECTED Sodium Chloride 0.9% [Saline Flush] 10 ml FLUSH ASDIRECTED PRN Peripheral IV Insertion Adult [OM.PC] Routine
--- NOTE | 2020-11-25 16:50 | US ---
Limited abdominal ultrasound: Multiple real-time images of the upper right abdomen were obtained. Comparison: Prior CT abdomen and pelvis exam of 05/11/20. Findings: Liver shows no focal abnormality. Gallbladder shows no shadowing gallstones. No gallbladder wall thickening or biliary duct dilatation is seen. Right kidney shows no hydronephrosis or mass. Right kidney measures approximately 10.4 cm in length. Pancreas is seen and appears within normal limits. Main portal vein shows hepatopedal flow. Impression: 1. No abnormality is appreciated on right upper quadrant abdominal ultrasound. Diagnostic code #1
== END 2020-11-25 17:50 | disposition home or self-care (01) ==
LOC: JD.ED 14:48
DX: O99.612 Diseases of the digestive system complicating pregnancy, second trimester (principal); K21.9 Gastro-esophageal reflux disease without esophagitis; O99.212 Obesity complicating pregnancy, second trimester; Z88.1 Allergy status to other antibiotic agents; Z91.018 Allergy to other foods; Z91.013 Allergy to seafood; Z3A.17 17 weeks gestation of pregnancy
CPT/HCPCS: 36415; 76705; 80053; 81001; 82977; 83690; 85025; 96374; 96375; 99284; J1170; J2765

== ENCOUNTER 2021-01-25 21:26 | Emergency (ER) | payer MEDICAID ==
[2021-01-25] MEDS ORDERED: Famotidine 20 MG Tab PO STA (22:19)
--- NOTE | 2021-01-25 22:26 | EDM.PDOC ---
ED HPI GENERAL MEDICAL PROBLEM - General Chief Complaint: Chest Pain Stated Complaint: SOB/CHEST PAIN Time Seen by Provider: 01/25/21 21:52 Source of Information: Reports: Patient History Limitations: Reports: No Limitations - History of Present Illness INITIAL COMMENTS - FREE TEXT/NARRATIVE: Ms. Duggan is a pleasant 20-year-old woman who is approximately 26 weeks gestation, , with a past medical history significant for untreated GERD, who now presents the ED stating that she was woken from sleep around 07:00 this morning with sharp right-sided chest pain. The pain has been coming and going, made worse if she takes a deep breath. Around 9-10 o'clock this morning, she developed crampy epigastric pain, which has also been coming and going and made to feel better if she is upright. She is not currently experiencing the epigastric cramps. She states that she has had some nausea since 20:30 this evening. No recent fever or cough. The patient states that she did not take any cvxf-slf-[id number] or home remedies to treat either of her symptoms, today. Here in the ED, the patient is found to be hemodynamically stable, afebrile, saturating 100% on room air. She appears to be comfortable, in no distress. Prior to this morning, the patient denies having a recent fever, chills, sore throat, ear pain, nasal or sinus congestion, cough, dyspnea, chest pain, pal pitations, nausea, vomiting, constipation, diarrhea, abdominal pain, urinary symptoms, recent weight gain or weight loss, recent bloody bowel movements or black bowel movements, recent joint aches, headaches, or rashes. The patient does not have a PCP. Her CATHEAD OPERATOR is Dr. Jmamie Salomon. Right Chest Pain Score (Numeric/FACES): 9 - Related Data Allergies Allergy/AdvReac Type Severity Reaction Status Date / Time nitrofurantoin Allergy Severe Hives Verified 01/25/21 21:45 [From Macrobid] nut - unspecified Allergy Severe Bronchospas Verified 01/25/21 21:45 ms shellfish derived Allergy Severe Facial Verified 01/25/21 21:45 Swelling Home Meds: Home Meds Mv-Mn/Iron/FA/Herbal/Digestive [ One Tablet] 1 tab PO DAILY 11/25/20 [History] Iron,Carb/Vit C/Vit B12/Folic [Iron 100 Plus Tablet] 1 tab PO BID 01/25/21 [History] Past Medical History Gastrointestinal History: Reports: GERD (untreated) : 3 Para: 2 Musculoskeletal History: Reports: Fracture (left clavicle) Endocrine/Metabolic History: Reports: Diabetes, Gestational, Obesity/BMI 30+ - Past Surgical History GI Surgical History: Reports: Appendectomy Social & Family History - Tobacco Use Tobacco Use Status *Q: Never Tobacco User Second Hand Smoke Exposure: No - Caffeine Use Caffeine Use: Reports: None - Alcohol Use Alcohol Use History: No - Recreational Drug Use Recreational Drug Use: No - Living Situation & Occupation Living situation: Reports: Single, with Significant Other (Boyfriend), with Family (2 kids) 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 ED EXAM, GENERAL - Physical Exam Exam: See Below Exam Limited By: No Limitations General Appearance: Alert, WD/WN, No Apparent Distress Eye Exam: Bilateral Eye: EOMI, Normal Inspection Ears: Normal External Exam, Hearing Grossly Normal Nose: Normal Inspection Throat/Mouth: Normal Inspection, Normal Lips, Normal Voice, No Airway Compromise Head: Atraumatic, Normocephalic Neck: Normal Inspection, Full Range of Motion Respiratory/Chest: No Respiratory Distress, Lungs Clear, Normal Breath Sounds, No Accessory Muscle Use, Other (Reproducible tenderness to palpation of the right chest). No: Decreased Breath Sounds, Crackles, Rhonchi, Wheezing, Stridor, Prolonged Expiration Cardiovascular: Normal Peripheral Pulses, Regular Rate, Rhythm, No Gallop, No JVD, No Murmur, No Rub Peripheral Pulses: 3+: Radial (L), Radial (R) GI/Abdominal: Normal Bowel Sounds, Soft, Non-Tender (including the epigastrium), No Organomegaly, No Distention, No Abnormal Bruit, No Mass, Other (Gravid uterus, consistent with dates) Back Exam: Normal Inspection, Full Range of Motion, NT Extremities: Normal Inspection, Normal Range of Motion, Normal Capillary Refill Neurological: Alert, Oriented, Normal Cognition, No Motor/Sensory Deficits Psychiatric: Normal Affect Skin Exam: Warm, Dry, Intact, Normal Color, No Rash Course - Vital Signs Last Recorded V/S: Last Vital Signs Temp 36.6 C 01/25/21 21:42 Pulse 84 04/18/21 21:42 Resp 17 01/25/21 22:35 BP 134/64 01/25/21 22:35 Pulse Ox 99 01/25/21 22:35 - Orders/Labs/Meds Meds: Medications Discontinued Medications Generic Name Dose Route Start Last Admin Trade Name Luz PRN Reason Stop Dose Admin Famotidine 40 mg 01/25/21 22:19 01/25/21 22:24 Famotidine 20 Mg Tab PO 01/25/21 22:20 40 mg ONETIME STA Administration - Re-Assessments/Exams Free Text/Narrative Re-Assessment/Exam: 01/25/21 22:20 As above, the patient was woken with sharp right-sided chest pain, made worse with deep breaths, around 7:00 this morning, then developed some epigastric cramps that have been coming and going, made worse if she is supine, around 9 or 10:00 this morning. Her right-sided chest pain is reproducible with palpation, strongly suggesting a musculoskeletal etiology. Because she has not had a recent cough or fever, and her oxygen saturation is 100% on room air, I do not suspect pneumonia. A pulmonary embolus is always a possibility, however, would not cause reproducible chest pain. I explained this to the patient, and advised against an evaluation for a PE, as it would likely result in unnecessary radiation. The patient agreed. With respect to the patient's epigastric pain, it is most likely due to GERD. She is asymptomatic at this time, therefore I cannot test her with a GI cocktail. I will, however, start her on famotidine, with the recommendation that she start taking 1 tablet of famotidine twice a day for the next 7 days, then decrease the dose to 1 tablet once a day. 01/25/21 22:27 heart rate is 150 bpm. Departure - Departure Time of Disposition: 22:23 Disposition: Home, Self-Care 01 Condition: Good Clinical Impression: Musculoskeletal chest pain, GERD (gastroesophageal reflux disease) - Discharge Information *PRESCRIPTION DRUG MONITORING PROGRAM REVIEWED*: Not Applicable *COPY OF PRESCRIPTION DRUG MONITORING REPORT IN PATIENT TAI: Not Applicable Instructions: Chest Wall Pain, Vvsv-kp-[id number], Gastroesophageal Reflux Disease, Adult, [id number] Referrals: Jammie Salomon MD [Primary Care Provider] - Forms: ED Department Discharge Additional Instructions: You were seen in the emergency room after being woken up with right-sided chest pain this morning, which has been coming and going, worse with deep breaths, and for cramps in your upper midline abdomen, which have also been coming and going, worse if you are lying down. Based on your history and physical examination, your right-sided chest pain is most likely musculoskeletal in etiology, and your upper midline abdominal cramps are most likely due to GERD. Your fetus's heart rate is 150 bpm, which is normal for gestational age. Unfortunately, the only medication that you can safely take for muscle pain during is [id number] acetaminophen (Tylenol). For treatment of your GERD, you have been started on the H2 roger famotidine (Pepcid). Famotidine is available [id number]. We recommend that you start taking 1 tablet of famotidine twice a day, for 7 days. After that, we recommend that you decrease the dosage to 1 tablet once a day. If your symptoms were well treated with 1 tablet twice a day, but return when you drop to 1 tablet once a day, you may increase the dosage to 1 tablet twice a day. If you still have symptoms while on 1 tablet twice a day, we recommend that you follow- up with your CATHEAD OPERATOR, Dr. Jammie Salomon. If any other problems, please do not hesitate to return to the ER. Sepsis Event Note (ED) - Evaluation Sepsis Screening Result: No Definite Risk - Focused Exam Vital Signs: Vital Signs Temp Pulse Resp BP Pulse Ox 01/25/21 22:35 17 134/64 99 01/25/21 21:42 36.6 C 84 19 125/77 100
== END 2021-01-25 22:35 | disposition home or self-care (01) ==
LOC: JD.ED 21:26
DX: O99.612 Diseases of the digestive system complicating pregnancy, second trimester (principal); K21.9 Gastro-esophageal reflux disease without esophagitis; O99.212 Obesity complicating pregnancy, second trimester; E66.9 Obesity, unspecified; Z3A.26 26 weeks gestation of pregnancy; Z88.1 Allergy status to other antibiotic agents; Z91.013 Allergy to seafood; Z91.018 Allergy to other foods
CPT/HCPCS: 99284; A9270; 99283

== ENCOUNTER 2021-02-17 21:34 | Emergency (ER) | payer MEDICAID ==
[2021-02-17] MEDS ORDERED: Sodium Chloride 0.9% 500 ML IV ONE (21:58)
[2021-02-17] MEDS ORDERED: Ondansetron 4 MG/2 ML SDV IVPUSH ONE (21:59)
--- NOTE | 2021-02-17 21:59 | EDM.PDOC ---
ED HPI GENERAL MEDICAL PROBLEM - General Chief Complaint: General Stated Complaint: VOMITING SORE THROAT RUNNY NOSE Time Seen by Provider: 02/17/21 21:45 Source of Information: Reports: Patient History Limitations: Reports: No Limitations - History of Present Illness INITIAL COMMENTS - FREE TEXT/NARRATIVE: Ms. Duggan is a very pleasant 20-year-old woman who now presents the ED after developing rhinorrhea yesterday, then a sore throat with belching and some vomiting this morning, then a loss of taste when she ate about 30 minutes ago. No recent fever. No recent constipation or diarrhea. No urinary symptoms. The patient did not take any bxfv-jee-gupynut or home remedies since the onset of her symptoms. The patient is approximately 29 weeks 1 day gestation, LMP 07/28/2020, KATELIN 05/04/2021, . She states that she had morning sickness earlier in her , but none more recently. Here in the ED, the patient is found to be hemodynamically stable, afebrile, s aturating 100% on room air. heart rate is 189 bpm. She has been retching in the ED. Prior to yesterday, the patient denies having a recent fever, chills, sore throat, ear pain, nasal or sinus congestion, cough, dyspnea, chest pain, palpitations, nausea, vomiting, constipation, diarrhea, abdominal pain, urinary symptoms, recent weight gain or weight loss, recent bloody bowel movements or b lack bowel movements, recent joint aches, headaches, or rashes. The patient's PCP is Dr. Daniel Peraza. Her SURVEYOR OIL WELL DIRECTIONAL is Dr. Jammie Valdez. The patient has not received a COVID vaccine. - Related Data Allergies Allergy/AdvReac Type Severity Reaction Status Date / Time nitrofurantoin Allergy Severe Hives Verified 02/17/21 21:42 [From Macrobid] nut - unspecified Allergy Severe Bronchospas Verified 02/17/21 21:42 ms shellfish derived Allergy Severe Facial Verified 02/17/21 21:42 Swelling Home Meds: Home Meds Mv-Mn/Iron/FA/Herbal/Digestive [ One Tablet] 1 tab PO DAILY 11/25/20 [History] Iron,Carb/Vit C/Vit B12/Folic [Iron 100 Plus Tablet] 1 tab PO BID 01/25/21 [History] Past Medical History Gastrointestinal History: Reports: GERD (untreated) : 3 Para: 2 Other SURVEYOR OIL WELL DIRECTIONAL History: , gestatinal diabetes Musculoskeletal History: Reports: Fracture (left clavicle) Endocrine/Metabolic History: Reports: Diabetes, Gestational, Obesity/BMI 30+ - Past Surgical History GI Surgical History: Reports: Appendectomy Social & Family History - Tobacco Use Tobacco Use Status *Q: Never Tobacco User - Caffeine Use Caffeine Use: Reports: None - Alcohol Use Alcohol Use History: No - Recreational Drug Use Recreational Drug Use: No - Living Situation & Occupation Living situation: Reports: Single, with Significant Other (Boyfriend), with Family (2 kids) 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 ED EXAM, GENERAL - Physical Exam Exam: See Below Exam Limited By: No Limitations General Appearance: Alert, WD/WN, No Apparent Distress (occasional retching) Eye Exam: Bilateral Eye: EOMI, Normal Inspection Ears: Normal External Exam, Normal Canal, Hearing Grossly Normal, Normal TMs Nose: Normal Inspection, Normal Mucosa, No Blood Throat/Mouth: Normal Inspection, Normal Lips, Normal Teeth, Normal Gums, Normal Oropharynx, Normal Voice, No Airway Compromise Head: Atraumatic, Normocephalic Neck: Normal Inspection, Supple, Non-Tender, Full Range of Motion. No: Lymphadenopathy (L), Lymphadenopathy (R) Respiratory/Chest: No Respiratory Distress, Lungs Clear, Normal Breath Sounds, No Accessory Muscle Use Cardiovascular: Normal Peripheral Pulses, Regular Rate, Rhythm, No Gallop, No JVD, No Murmur, No Rub Peripheral Pulses: 3+: Radial (L), Radial (R) GI/Abdominal: Normal Bowel Sounds, Soft, Non-Tender, No Organomegaly, No Distention, No Abnormal Bruit, Other (Gravid uterus consistent with dates) Back Exam: Normal Inspection, Full Range of Motion, NT Extremities: Normal Inspection, Normal Range of Motion, Normal Capillary Refill Neurological: Alert, Oriented, Normal Cognition, No Motor/Sensory Deficits Psychiatric: Normal Affect Skin Exam: Warm, Dry, Intact, Normal Color, No Rash Course - Vital Signs Last Recorded V/S: Last Vital Signs Temp 35.6 C L 02/17/21 21:43 Pulse 94 02/17/21 23:50 Resp 13 02/17/21 23:50 BP 124/75 02/17/21 21:43 Pulse Ox 96 02/17/21 23:50 - Orders/Labs/Meds Labs: Laboratory Tests 02/17/21 02/17/21 02/17/21 Range/Units 22:02 22:13 22:13 WBC 7.13 (3.98-10.04) K/mm3 RBC 3.24 L (3.98-5.22) M/mm3 Hgb 8.9 L D (11.2-15.7) gm/dl Hct 27.7 L (34.1-44.9) % MCV 85.5 (79.4-94.8) fl MCH 27.5 (25.6-32.2) pg MCHC 32.1 L (32.2-35.5) g/dl RDW Std Deviation 44.0 (36.4-46.3) fL Plt Count 319 (182-369) K/mm3 MPV 10.0 (9.4-12.3) fl Neutrophils % (Manual) 39 L (40-60) % Band Neutrophils % 0 (0-10) % Lymphocytes % (Manual) 47 H (20-40) % Atypical Lymphs % 0 % Monocytes % (Manual) 14 H (2-10) % Eosinophils % (Manual) 0 L (0.7-5.8) % Basophils % (Manual) 0 L (0.1-1.2) Platelet Estimate Adequate RBC Morph Comment Normal Sodium 137 (136-145) mEq/L Potassium 3.1 L (3.5-5.1) mEq/L Chloride 105 (98-107) mEq/L Carbon Dioxide 23 (21-32) mEq/L Anion Gap 12.1 (5-15) BUN 6 L (7-18) mg/dL Creatinine 0.8 (0.55-1.02) mg/dL Est Cr Clr Drug Dosing TNP Estimated GFR (MDRD) > 60 (>60) mL/min BUN/Creatinine Ratio 7.5 L (14-18) Glucose 113 H (70-99) mg/dL Calcium 8.0 L (8.5-10.1) mg/dL Magnesium 2.4 (1.8-2.4) mg/dL Total Bilirubin 0.3 (0.2-1.0) mg/dL AST 14 L (15-37) U/L ALT 17 (14-59) U/L Alkaline Phosphatase 75 (46-116) U/L Total Protein 7.0 (6.4-8.2) g/dl Albumin 2.4 L (3.4-5.0) g/dl Globulin 4.6 gm/dL Albumin/Globulin Ratio 0.5 L (1-2) Influenza Type A RNA Negative (NEGATIVE) Influenza Type B RNA Negative (NEGATIVE) SARS-CoV-2 RNA (GAY) Negative (NEGATIVE) Group A Strep (PCR) Not detected (NOT DETECT) Meds: Medications Discontinued Medications Generic Name Dose Route Start Last Admin Trade Name Freq PRN Reason Stop Dose Admin Acetaminophen 650 mg 02/17/21 23:07 02/17/21 23:19 Acetaminophen 325 Mg Tab PO 02/17/21 23:08 650 mg NOW ONE Administration Sodium Chloride 500 mls @ 1,000 mls/hr 02/17/21 21:58 02/17/21 22:14 Normal Saline IV 02/17/21 22:27 1,000 mls/hr .BOLUS ONE Administration Metoclopramide HCl 10 mg 02/17/21 22:52 02/17/21 23:00 Metoclopramide 10 Mg/2 Ml Sdv IVPUSH 02/17/21 22:53 10 mg ONETIME STA Administration Ondansetron HCl 4 mg 02/17/21 21:59 02/17/21 22:13 Ondansetron 4 Mg/2 Ml Sdv IVPUSH 02/17/21 22:00 4 mg ONETIME ONE Administration Potassium Chloride 40 meq 02/18/21 21:00 Potassium Chloride 20 Meq Tab.Er PO BEDTIME PATY Potassium Chloride Confirm 02/18/21 00:14 02/18/21 00:10 Potassium Chloride 20 Meq Tab.Er Administered 02/18/21 00:15 40 meq Dose Administration 40 meq .ROUTE .STK-MED ONE - Re-Assessments/Exams Free Text/Narrative Re-Assessment/Exam: 02/17/21 21:57 As above, the patient developed rhinorrhea yesterday, then a sore throat and belching with some vomiting this morning, then loss of taste about 30 minutes ago, when she last ate. No recent fever. Her vitals are normal here in the ED, although she is retching. heart rate is 189. Her physical exam is unremarkable. I swabbed her tonsils for a Group A strep by PCR test, and I have also ordered a swab for the SARS-CoV-2 virus and influenza A + B viruses, along with a few blood tests. In the meantime, the patient will be given a 500 mL bolus of IV fluid, along with IV Zofran. 02/17/21 22:52 Notified by Priya MENENDEZ that the patient vomited again, despite earlier being given Zofran. I have ordered metoclopramide grams IVP, which is recommended as adjuvant treatment for vomiting in . The patient's CBC is markable for a H/H modestly depressed at 8.8/27.7, with the remainder of her CBC being unremarkable. Her CMP is remarkable for mild hypokalemia of 3.1, and mild hyperglycemia of 113, with the remainder of her CMP being unremarkable. Her magnesium level is within normal limits at 2.4. Her Group A strep by PCR test returned negative. Results of her swab for the SARS-CoV-2 virus and influenza A + B viruses is still pending. 02/17/21 23:08 The patient's swab for the SARS-CoV-2 virus and influenza A + B viruses is negative for all. 02/17/21 23:50 Test results discussed with the patient. As above, with the exception of mild hypokalemia, the patient's work-up is unremarkable. I suspect that she has a viral URI causing her rhinorrhea and sore throat. She states that she feels much better, that the Reglan really worked for her. She will be given a single dose of oral KCl, after which she should be able to be discharged home. She declined an offer for a prescription for anti-nausea medicine. I requested that she notify the office of Dr. Salomon of her ER visit. Departure - Departure Time of Disposition: 23:51 Disposition: Home, Self-Care 01 Condition: Good Clinical Impression: Viral URI, Third trimester , Hypokalemia Nausea & vomiting Qualifiers: Vomiting type: unspecified Vomiting Intractability: non-intractable Qualified Code(s): R11.2 - Nausea with vomiting, unspecified - Discharge Information *PRESCRIPTION DRUG MONITORING PROGRAM REVIEWED*: Not Applicable *COPY OF PRESCRIPTION DRUG MONITORING REPORT IN PATIENT TAI: Not Applicable Instructions: Third Trimester of , [id number], Hypokalemia, Nausea and Vomiting, Adult, Witv-[id number], Upper Respiratory Infection, Adult, Kvec-mg-Cusp Referrals: Jammie Salomon MD [Primary Care Provider] - Daniel Fitzgerald MD [Physician] - Forms: ED Department Discharge Additional Instructions: You were seen in the emergency room after developing a runny nose yesterday, then a sore throat with belching and some vomiting this morning, then a loss of taste this evening. Work-up in the ER included checking a heart rate, several blood tests, a rapid strep test, and a swab for the SARS-CoV-2 virus and influenza A + B viruses. Your potassium level was found to be mildly depressed at 3.1, and you were found to be modestly anemic, otherwise, your entire work-up was unremarkable. Based on your history, physical exam, and ER tests, you are most likely suffering from a viral URI causing majority of your symptoms. You were given IV fluid and 2 anti-nausea medicines, along with some Tylenol in the ER. You were given oral potassium to correct your low potassium level. No further treatment is necessary. You may resume your usual activities and usual medications. We recommend that you notify the office of your Insurance Claims Specialist, Dr. Jammie Salomon, of your ER visit. If any other problems, please do not hesitate to return to the ER. Sepsis Event Note (ED) - Evaluation Sepsis Screening Result: No Definite Risk - Focused Exam Vital Signs: Vital Signs Temp Pulse Resp BP Pulse Ox 02/17/21 23:50 94 13 96 02/17/21 21:43 35.6 C L 82 18 124/75 100
[2021-02-17 22:45] LABS: STREP A BY PCR NOT DETECTED (NOT DETECT)
[2021-02-17] MEDS ORDERED: Metoclopramide 10 MG/2 ML SDV IVPUSH STA (22:52)
[2021-02-17 23:00] LABS: CORONAVIRUS COVID-19 NAA NEGATIVE (NEGATIVE)
[2021-02-17] MEDS ORDERED: Acetaminophen 325 MG Tab PO ONE (23:07)
[2021-02-18] MEDS ORDERED: Potassium Chloride 20 MEQ Tab.ER ONE (00:14)
[2021-02-18] MEDS ORDERED: Potassium Chloride 20 MEQ Tab.ER PO SCH (21:00)
== END 2021-02-18 00:02 | disposition home or self-care (01) ==
LOC: JD.ED 21:34 → SUPCPDRO 21:34 → JD.ED 02-18 00:02
DX: O21.9 Vomiting of pregnancy, unspecified (principal); O99.513 Diseases of the respiratory system complicating pregnancy, third trimester; J06.9 Acute upper respiratory infection, unspecified; O99.284 Endocrine, nutritional and metabolic diseases complicating childbirth; E87.6 Hypokalemia; Z88.1 Allergy status to other antibiotic agents; Z91.013 Allergy to seafood; Z91.010 Allergy to peanuts; Z20.822 Contact with and (suspected) exposure to COVID-19; Z3A.29 29 weeks gestation of pregnancy
CPT/HCPCS: 0240U; 36415; 80053; 83735; 85007; 85027; 87651-QW; 96374; 96375; 99284; 99284-25; A9270-GY; J2405; J2765; J7030

== ENCOUNTER 2021-04-24 07:01 | Inpatient (IN) | payer MEDICAID ==
[2021-04-24] MEDS ORDERED: Sodium Chloride 0.9% 10 ML Syringe FLUSH PRN (08:45)
[2021-04-24] MEDS ORDERED: Lidocaine 1% 50 ML MDV INJECT ONE (08:45)
[2021-04-24] MEDS ORDERED: Nalbuphine 10 MG/1 ML Vial IVPUSH PRN (08:45)
[2021-04-24] MEDS ORDERED: Ondansetron 4 MG/2 ML SDV IVPUSH PRN (08:45)
[2021-04-24] MEDS ORDERED: Calcium Carbonate 500 MG Tab.Chew PO PRN (08:45)
[2021-04-24] MEDS ORDERED: Oxytocin/Lactated Ringers 10 UNIT/1,000 ML BAG IV SCH ×2 (08:45)
[2021-04-24] MEDS: Lactated Ringers 1,000 ML IV SCH ×2 (09:19→12:26)
[2021-04-24] MEDS ORDERED: Sodium Chloride 0.9% 1,000 ML IV SCH (09:45)
[2021-04-24] MEDS ORDERED: Benzocaine/Menthol 20%-0.5% Spray 56 GM Canister TOP PRN (18:04)
[2021-04-24] MEDS ORDERED: Docusate Sodium 100 MG Cap PO PRN (18:04)
[2021-04-24] MEDS ORDERED: Witch Hazel Medicated Pads 40/Jar TOP PRN (18:04)
--- NOTE | 2021-04-24 18:08 | PCM.SN.2 ---
- Free Text/Narrative Note: Stage I - Patient presented for induction of labor. AROM clear fluid. Pitocin. Progressed to complete with overall reassuring heart tones. Stage II - of viable female, weight 3520, 8/8 APGARS at 1733. Head delivered in controlled manner over intact perineum. Body and shoulders followed without difficulty. To maternal abdomen. Positive cry. Cord clamped and cut and baby to warmer. Cord blood collected. Stage III - of intact placenta. 3vc. Increased bleeding. Straight cath. No laceration. QBL pending.
[2021-04-24] MEDS ORDERED: Oxytocin/Lactated Ringers 10 UNIT/1,000 ML BAG IV ONE (18:10)
[2021-04-24] MEDS: Ibuprofen 600 MG Tab PO PRN (19:42)
[2021-04-25] MEDS: Ibuprofen 600 MG Tab PO PRN ×2 (01:19→11:11)
--- NOTE | 2021-04-25 07:58 | PCM.LDHP ---
L&D History of Present Illness - General Date of Service: 04/24/21 Admit Problem/Dx: Admission Diagnosis/Problem Admission Diagnosis/Problem - History of Present Illness Introduction:: Late entry from paper as meditech down at time of admission. 20 year old at 38w5 here for induction of labor secondary to poorly controlled GDM Pain Score: 3 - Related Data Allergies/Adverse Reactions: Allergies Allergy/AdvReac Type Severity Reaction Status Date / Time nut - unspecified Allergy Severe Bronchospas Verified 04/14/21 12:30 ms shellfish derived Allergy Severe Facial Verified 04/14/21 12:30 Swelling nitrofurantoin Allergy Intermediate Hives Verified 04/14/21 12:30 [From Macrobid] Home Medications: Home Meds Insulin Glargine,Hum.Rec.Anlog [Lantus Solostar] 6 unit SQ DAILY 04/14/21 [History] Pnv No.95/Ferrous Fum/Folic AC [ Tablet] 1 each PO DAILY 04/14/21 [History] Famotidine [Pepcid] 20 mg PO ASDIRECTED PRN 04/18/21 [History] Past Medical History HEENT History: Reports: None Cardiovascular History: Reports: None Respiratory History: Reports: None Gastrointestinal History: Reports: GERD Genitourinary History: Reports: UTI, Recurrent 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: , Other (See Below) Other OB/BYN History: , gestatinal diabetes Musculoskeletal History: Reports: Fracture Neurological History: Reports: None Psychiatric History: Reports: None Endocrine/Metabolic History: Reports: Diabetes, Gestational, Obesity/BMI 30+ Hematologic History: Reports: Anemia Immunologic History: Reports: None Oncologic (Cancer) History: Reports: None Dermatologic History: Reports: None - Infectious Disease History Infectious Disease History: Reports: Influenza - Past Surgical History HEENT Surgical History: Reports: None GI Surgical History: Reports: Appendectomy Musculoskeletal Surgical History: Reports: Other (See Below) Other Musculoskeletal Surgeries/Procedures:: plate to Fx'd clavicle. 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) H&P Review of Systems - Review of Systems: Review Of Systems: See Below General: Reports: No Symptoms HEENT: Reports: No Symptoms Pulmonary: Reports: No Symptoms Cardiovascular: Reports: No Symptoms Gastrointestinal: Reports: No Symptoms Genitourinary: Reports: No Symptoms Musculoskeletal: Reports: No Symptoms Skin: Reports: No Symptoms Psychiatric: Reports: No Symptoms Neurological: Reports: No Symptoms Hematologic/Lymphatic: Reports: No Symptoms Immunologic: Reports: No Symptoms L&D Exam - Exam Exam: See Below - Vital Signs Vital Signs: Last Vital Signs Temp 36.7 C 04/25/21 03:07 Pulse 71 04/25/21 03:07 Resp 14 04/25/21 03:07 BP 124/53 L 04/25/21 03:07 Pulse Ox 100 04/25/21 03:07 Weight: 124.919 kg - OB Specific Contraction Intensity: Irritability Movement: Active Heart Tones: Present Heart Rate (FHR) Variability: Moderate (6-25 bmp) Presentation: Vertex - Fair Score Fair Score Cervix Position: Midposition Fair Score Consistency: Soft Fair Score Effacement: 51-70% Fair Score Dilation: 3-4 cm Fair Score 's Station: -2 Fair Score Total: 8 - Exam General: Alert, Oriented HEENT: PERRLA, Conjunctiva Clear, EACs Clear, EOMI, Hearing Intact, Mucosa Moist & [place], Nares Patent, Normal Nasal Septum, Posterior Pharynx Clear, TMs Clear Neck: Supple, Trachea Midline Lungs: Clear to Auscultation, Normal Respiratory Effort Cardiovascular: Regular Rate, Regular Rhythm GI/Abdominal Exam: Normal Bowel Sounds, Soft, Non-Tender, No Organomegaly, No Distention, No Abnormal Bruit, No Mass, Pelvis Stable Genitourinary: Normal external exam, Normal bimanual exam, Other (AROM clear fluid) Back Exam: Normal Inspection, Full Range of Motion Extremities: Normal Inspection, Normal Range of Motion, Non-Tender, No Pedal Edema, Normal Capillary Refill Skin: Warm, Dry, Intact Neurological: Cranial Nerves Intact, Reflexes Equal Bilateral Psychiatric: Alert, Normal Affect, Normal Mood - Patient Data Lab Results Last 24 hrs: Laboratory Results - last 24 hr 04/24/21 04/24/21 04/24/21 Range/Units 07:45 07:45 07:45 WBC 8.18 (3.98-10.04) K/mm3 RBC 3.22 L (3.98-5.22) M/mm3 Hgb 7.9 L (11.2-15.7) gm/dl Hct 26.0 L (34.1-44.9) % MCV 80.7 (79.4-94.8) fl MCH 24.5 L (25.6-32.2) pg MCHC 30.4 L (32.2-35.5) g/dl RDW Std Deviation 47.0 H (36.4-46.3) fL Plt Count 312 (182-369) K/mm3 MPV 9.5 (9.4-12.3) fl Neut % (Auto) (34.0-71.1) % Lymph % (Auto) (19.3-51.7) % [place] % (Auto) (4.7-12.5) % Eos % (Auto) (0.7-5.8) Baso % (Auto) (0.1-1.2) % Neut # (Auto) (1.56-6.13) K/mm3 Lymph # (Auto) (1.18-3.74) K/mm3 [place] # (Auto) (0.24-0.36) K/mm3 Eos # (Auto) (0.04-0.36) K/mm3 Baso # (Auto) (0.01-0.08) K/mm3 Neutrophils % (Manual) 69 H (40-60) % Band Neutrophils % 1 (0-10) % Lymphocytes % (Manual) 27 (20-40) % Atypical Lymphs % 0 % Monocytes % (Manual) 3 (2-10) % Eosinophils % (Manual) 0 L (0.7-5.8) % Basophils % (Manual) 0 L (0.1-1.2) Toxic Granulation 1+ slight Platelet Estimate Adequate Hypochromasia 2+ moderate Anisocytosis 1+ slight RBC Morph Comment Not Reportable POC Glucose (70-99) mg/dL RPR Non-reactive (NONREACTIVE) SARS-CoV-2 RNA (GAY) Negative (NEGATIVE) Blood Type Gel Antibody Screen Crossmatch 07/16/21 07/16/21 07/16/21 Range/Units 07:45 10:43 12:02 WBC 8.68 (3.98-10.04) K/mm3 RBC 3.57 L (3.98-5.22) M/mm3 Hgb 9.0 L (11.2-15.7) gm/dl Hct 29.3 L (34.1-44.9) % MCV 82.1 (79.4-94.8) fl MCH 25.2 L (25.6-32.2) pg MCHC 30.7 L (32.2-35.5) g/dl RDW Std Deviation 49.4 H (36.4-46.3) fL Plt Count 308 (182-369) K/mm3 MPV 9.8 (9.4-12.3) fl Neut % (Auto) 66.0 (34.0-71.1) % Lymph % (Auto) 25.0 (19.3-51.7) % [place] % (Auto) 7.8 (4.7-12.5) % Eos % (Auto) 0.8 (0.7-5.8) Baso % (Auto) 0.1 (0.1-1.2) % Neut # (Auto) 5.72 (1.56-6.13) K/mm3 Lymph # (Auto) 2.17 (1.18-3.74) K/mm3 [place] # (Auto) 0.68 H (0.24-0.36) K/mm3 Eos # (Auto) 0.07 (0.04-0.36) K/mm3 Baso # (Auto) 0.01 (0.01-0.08) K/mm3 Neutrophils % (Manual) (40-60) % Band Neutrophils % (0-10) % Lymphocytes % (Manual) (20-40) % Atypical Lymphs % % Monocytes % (Manual) (2-10) % Eosinophils % (Manual) (0.7-5.8) % Basophils % (Manual) (0.1-1.2) Toxic Granulation Platelet Estimate Hypochromasia Anisocytosis RBC Morph Comment POC Glucose 71 (70-99) mg/dL RPR (NONREACTIVE) SARS-CoV-2 RNA (GAY) (NEGATIVE) Blood Type O POSITIVE Gel Antibody Screen Negative Crossmatch See Detail 04/24/21 04/24/21 04/24/21 Range/Units 12:32 14:57 16:29 WBC (3.98-10.04) K/mm3 RBC (3.98-5.22) M/mm3 Hgb (11.2-15.7) gm/dl Hct (34.1-44.9) % MCV (79.4-94.8) fl MCH (25.6-32.2) pg MCHC (32.2-35.5) g/dl RDW Std Deviation (36.4-46.3) fL Plt Count (182-369) K/mm3 MPV (9.4-12.3) fl Neut % (Auto) (34.0-71.1) % Lymph % (Auto) (19.3-51.7) % [place] % (Auto) (4.7-12.5) % Eos % (Auto) (0.7-5.8) Baso % (Auto) (0.1-1.2) % Neut # (Auto) (1.56-6.13) K/mm3 Lymph # (Auto) (1.18-3.74) K/mm3 [place] # (Auto) (0.24-0.36) K/mm3 Eos # (Auto) (0.04-0.36) K/mm3 Baso # (Auto) (0.01-0.08) K/mm3 Neutrophils % (Manual) (40-60) % Band Neutrophils % (0-10) % Lymphocytes % (Manual) (20-40) % Atypical Lymphs % % Monocytes % (Manual) (2-10) % Eosinophils % (Manual) (0.7-5.8) % Basophils % (Manual) (0.1-1.2) Toxic Granulation Platelet Estimate Hypochromasia Anisocytosis RBC Morph Comment POC Glucose 103 H 89 78 (70-99) mg/dL RPR (NONREACTIVE) SARS-CoV-2 RNA (GAY) (NEGATIVE) Blood Type Gel Antibody Screen Crossmatch 04/25/21 Range/Units 06:15 WBC 13.42 H (3.98-10.04) K/mm3 RBC 3.62 L (3.98-5.22) M/mm3 Hgb 9.3 L (11.2-15.7) gm/dl Hct 29.5 L (34.1-44.9) % MCV 81.5 (79.4-94.8) fl MCH 25.7 (25.6-32.2) pg MCHC 31.5 L (32.2-35.5) g/dl RDW Std Deviation 47.9 H (36.4-46.3) fL Plt Count 284 (182-369) K/mm3 MPV 10.1 (9.4-12.3) fl Neut % (Auto) (34.0-71.1) % Lymph % (Auto) (19.3-51.7) % [place] % (Auto) (4.7-12.5) % Eos % (Auto) (0.7-5.8) Baso % (Auto) (0.1-1.2) % Neut # (Auto) (1.56-6.13) K/mm3 Lymph # (Auto) (1.18-3.74) K/mm3 [place] # (Auto) (0.24-0.36) K/mm3 Eos # (Auto) (0.04-0.36) K/mm3 Baso # (Auto) (0.01-0.08) K/mm3 Neutrophils % (Manual) (40-60) % Band Neutrophils % (0-10) % Lymphocytes % (Manual) (20-40) % Atypical Lymphs % % Monocytes % (Manual) (2-10) % Eosinophils % (Manual) (0.7-5.8) % Basophils % (Manual) (0.1-1.2) Toxic Granulation Platelet Estimate Hypochromasia Anisocytosis RBC Morph Comment POC Glucose (70-99) mg/dL RPR (NONREACTIVE) SARS-CoV-2 RNA (GAY) (NEGATIVE) Blood Type Gel Antibody Screen Crossmatch Result Diagrams: 04/25/21 06:15 Problem List Initiated/Reviewed/Updated: Yes Orders Last 24hrs: Active Orders 24 hr Category Date Time Status Activity as Tolerated [RC] PER UNIT ROUTINE Care 04/24/21 18:04 Active Vital Signs [RC] 03,09,15,21 Care 04/24/21 18:04 Active Regular Diet [DIET] Diet 04/24/21 Breakfast Active Benzocaine/Menthol [Dermoplast Pain Relief [place]] Med 04/24/21 18:04 Active See Dose Instructions TOP ASDIRECTED PRN Docusate Sodium [Colace] Med 04/24/21 18:04 Active 100 mg PO BID PRN Ibuprofen [Motrin] Med 04/24/21 18:04 Active 600 mg PO Q6H PRN witch Emily [Tucks] Med 04/24/21 18:04 Active 1 pad TOP ASDIRECTED PRN Assess Lochia [WOMSER] Per Unit Routine Ot 04/24/21 18:04 Ordered Assess Uterine Involution [WOMSER] Per Unit Routine Ot 04/24/21 18:04 Ordered Breast Pump [WOMSER] Per Unit Routine Ot 04/24/21 18:04 Ordered Heat Therapy [OM.PC] PRN Ot 04/24/21 18:15 Ordered Heat Therapy [OM.PC] PRN Ot 04/25/21 18:15 Ordered Medication Administration Instruction [OM.PC] Routine Ot 04/24/21 18:04 Ordered Perineal Care [OM.PC] Per Unit Routine Ot 04/24/21 18:04 Ordered Sitz Bath [OM.PC] Per Unit Routine Ot 04/24/21 18:04 Ordered Resuscitation Status Routine Resus Stat 04/24/21 08:45 Ordered Medication Orders Benzocaine/Menthol (Benzocaine/Menthol 20%-0.5% [place] 56 Gm Canister) 0 gm TOP ASDIRECTED PRN PRN Reason: Perineal Comfort Measure Last Admin: 04/25/21 01:19 Dose: 1 applic Documented by: [id number] Docusate Sodium (Docusate Sodium 100 Mg Cap) 100 mg PO BID PRN PRN Reason: Constipation Ibuprofen (Ibuprofen 600 Mg Tab) 600 mg PO Q6H PRN PRN Reason: Mild pain or fever Last Admin: 04/25/21 01:19 Dose: 600 mg Documented by: [id number] Admin: 04/24/21 19:42 Dose: 600 mg Documented by: [id number] Witch Emily (Witch Emily Medicated Pads 40/Jar) 1 pad TOP ASDIRECTED PRN PRN Reason: Perineal Comfort Measure Last Admin: 04/25/21 01:19 Dose: 1 applic Documented by: [id number] Assessment/Plan Comment:: Induction. AROM - start pitocin Blood sugars q2h. Anticipate
--- NOTE | 2021-04-25 08:00 | PCM.PNPP ---
- General Info Date of Service: 04/25/21 Functional Status: Reports: Pain Controlled - Review of Systems General: Reports: No Symptoms HEENT: Reports: No Symptoms Pulmonary: Reports: No Symptoms Cardiovascular: Reports: No Symptoms Gastrointestinal: Reports: No Symptoms Genitourinary: Reports: No Symptoms Musculoskeletal: Reports: No Symptoms Skin: Reports: No Symptoms Neurological: Reports: No Symptoms Psychiatric: Reports: No Symptoms - General Info Date of Service: 04/25/21 - Patient Data Vital Signs - Most Recent: Last Vital Signs Temp 36.7 C 04/25/21 03:07 Pulse 71 04/25/21 03:07 Resp 14 04/25/21 03:07 BP 124/53 L 04/25/21 03:07 Pulse Ox 100 04/25/21 03:07 Weight - Most Recent: 124.919 kg I&O - Last 24 Hours: Intake & Output 04/24/21 04/25/21 04/25/21 22:59 06:59 14:59 Intake Total 410 Output Total 150 106 Balance 260 -106 Lab Results - Last 24 Hours: Laboratory Results - last 24 hr 04/24/21 04/24/21 04/24/21 Range/Units 07:45 07:45 07:45 WBC 8.18 (3.98-10.04) K/mm3 RBC 3.22 L (3.98-5.22) M/mm3 Hgb 7.9 L (11.2-15.7) gm/dl Hct 26.0 L (34.1-44.9) % MCV 80.7 (79.4-94.8) fl MCH 24.5 L (25.6-32.2) pg MCHC 30.4 L (32.2-35.5) g/dl RDW Std Deviation 47.0 H (36.4-46.3) fL Plt Count 312 (182-369) K/mm3 MPV 9.5 (9.4-12.3) fl Neut % (Auto) (34.0-71.1) % Lymph % (Auto) (19.3-51.7) % [place] % (Auto) (4.7-12.5) % Eos % (Auto) (0.7-5.8) Baso % (Auto) (0.1-1.2) % Neut # (Auto) (1.56-6.13) K/mm3 Lymph # (Auto) (1.18-3.74) K/mm3 [place] # (Auto) (0.24-0.36) K/mm3 Eos # (Auto) (0.04-0.36) K/mm3 Baso # (Auto) (0.01-0.08) K/mm3 Neutrophils % (Manual) 69 H (40-60) % Band Neutrophils % 1 (0-10) % Lymphocytes % (Manual) 27 (20-40) % Atypical Lymphs % 0 % Monocytes % (Manual) 3 (2-10) % Eosinophils % (Manual) 0 L (0.7-5.8) % Basophils % (Manual) 0 L (0.1-1.2) Toxic Granulation 1+ slight Platelet Estimate Adequate Hypochromasia 2+ moderate Anisocytosis 1+ slight RBC Morph Comment Not Reportable POC Glucose (70-99) mg/dL RPR Non-reactive (NONREACTIVE) SARS-CoV-2 RNA (GAY) Negative (NEGATIVE) Blood Type Gel Antibody Screen Crossmatch 04/24/21 04/24/21 04/24/21 Range/Units 07:45 10:43 12:02 WBC 8.68 (3.98-10.04) K/mm3 RBC 3.57 L (3.98-5.22) M/mm3 Hgb 9.0 L (11.2-15.7) gm/dl Hct 29.3 L (34.1-44.9) % MCV 82.1 (79.4-94.8) fl MCH 25.2 L (25.6-32.2) pg MCHC 30.7 L (32.2-35.5) g/dl RDW Std Deviation 49.4 H (36.4-46.3) fL Plt Count 308 (182-369) K/mm3 MPV 9.8 (9.4-12.3) fl Neut % (Auto) 66.0 (34.0-71.1) % Lymph % (Auto) 25.0 (19.3-51.7) % [place] % (Auto) 7.8 (4.7-12.5) % Eos % (Auto) 0.8 (0.7-5.8) Baso % (Auto) 0.1 (0.1-1.2) % Neut # (Auto) 5.72 (1.56-6.13) K/mm3 Lymph # (Auto) 2.17 (1.18-3.74) K/mm3 [place] # (Auto) 0.68 H (0.24-0.36) K/mm3 Eos # (Auto) 0.07 (0.04-0.36) K/mm3 Baso # (Auto) 0.01 (0.01-0.08) K/mm3 Neutrophils % (Manual) (40-60) % Band Neutrophils % (0-10) % Lymphocytes % (Manual) (20-40) % Atypical Lymphs % % Monocytes % (Manual) (2-10) % Eosinophils % (Manual) (0.7-5.8) % Basophils % (Manual) (0.1-1.2) Toxic Granulation Platelet Estimate Hypochromasia Anisocytosis RBC Morph Comment POC Glucose 71 (70-99) mg/dL RPR (NONREACTIVE) SARS-CoV-2 RNA (GAY) (NEGATIVE) Blood Type O POSITIVE Gel Antibody Screen Negative Crossmatch See Detail 04/24/21 04/24/21 04/24/21 Range/Units 12:32 14:57 16:29 WBC (3.98-10.04) K/mm3 RBC (3.98-5.22) M/mm3 Hgb (11.2-15.7) gm/dl Hct (34.1-44.9) % MCV (79.4-94.8) fl MCH (25.6-32.2) pg MCHC (32.2-35.5) g/dl RDW Std Deviation (36.4-46.3) fL Plt Count (182-369) K/mm3 MPV (9.4-12.3) fl Neut % (Auto) (34.0-71.1) % Lymph % (Auto) (19.3-51.7) % [place] % (Auto) (4.7-12.5) % Eos % (Auto) (0.7-5.8) Baso % (Auto) (0.1-1.2) % Neut # (Auto) (1.56-6.13) K/mm3 Lymph # (Auto) (1.18-3.74) K/mm3 [place] # (Auto) (0.24-0.36) K/mm3 Eos # (Auto) (0.04-0.36) K/mm3 Baso # (Auto) (0.01-0.08) K/mm3 Neutrophils % (Manual) (40-60) % Band Neutrophils % (0-10) % Lymphocytes % (Manual) (20-40) % Atypical Lymphs % % Monocytes % (Manual) (2-10) % Eosinophils % (Manual) (0.7-5.8) % Basophils % (Manual) (0.1-1.2) Toxic Granulation Platelet Estimate Hypochromasia Anisocytosis RBC Morph Comment POC Glucose 103 H 89 78 (70-99) mg/dL RPR (NONREACTIVE) SARS-CoV-2 RNA (GAY) (NEGATIVE) Blood Type Gel Antibody Screen Crossmatch 04/25/21 Range/Units 06:15 WBC 13.42 H (3.98-10.04) K/mm3 RBC 3.62 L (3.98-5.22) M/mm3 Hgb 9.3 L (11.2-15.7) gm/dl Hct 29.5 L (34.1-44.9) % MCV 81.5 (79.4-94.8) fl MCH 25.7 (25.6-32.2) pg MCHC 31.5 L (32.2-35.5) g/dl RDW Std Deviation 47.9 H (36.4-46.3) fL Plt Count 284 (182-369) K/mm3 MPV 10.1 (9.4-12.3) fl Neut % (Auto) (34.0-71.1) % Lymph % (Auto) (19.3-51.7) % [place] % (Auto) (4.7-12.5) % Eos % (Auto) (0.7-5.8) Baso % (Auto) (0.1-1.2) % Neut # (Auto) (1.56-6.13) K/mm3 Lymph # (Auto) (1.18-3.74) K/mm3 [place] # (Auto) (0.24-0.36) K/mm3 Eos # (Auto) (0.04-0.36) K/mm3 Baso # (Auto) (0.01-0.08) K/mm3 Neutrophils % (Manual) (40-60) % Band Neutrophils % (0-10) % Lymphocytes % (Manual) (20-40) % Atypical Lymphs % % Monocytes % (Manual) (2-10) % Eosinophils % (Manual) (0.7-5.8) % Basophils % (Manual) (0.1-1.2) Toxic Granulation Platelet Estimate Hypochromasia Anisocytosis RBC Morph Comment POC Glucose (70-99) mg/dL RPR (NONREACTIVE) SARS-CoV-2 RNA (GAY) (NEGATIVE) Blood Type Gel Antibody Screen Crossmatch Med Orders - Current: Current Medications Benzocaine/Menthol (Benzocaine/Menthol 20%-0.5% [place] 56 Gm Canister) 0 gm TOP ASDIRECTED PRN PRN Reason: Perineal Comfort Measure Last Admin: 04/25/21 01:19 Dose: 1 applic Documented by: Docusate Sodium (Docusate Sodium 100 Mg Cap) 100 mg PO BID PRN PRN Reason: Constipation Ibuprofen (Ibuprofen 600 Mg Tab) 600 mg PO Q6H PRN PRN Reason: Mild pain or fever Last Admin: 04/25/21 01:19 Dose: 600 mg Documented by: Trav Sanchez (Witch Laura Medicated Pads 40/Jar) 1 pad TOP ASDIRECTED PRN PRN Reason: Perineal Comfort Measure Last Admin: 04/25/21 01:19 Dose: 1 applic Documented by: Discontinued Medications Calcium Carbonate/Glycine (Calcium Carbonate 500 Mg Tab.Chew) 1,000 mg PO Q2H PRN PRN Reason: Indigestion Lactated Ringer's (Ringers, Lactated) 1,000 mls @ 100 mls/hr IV ASDIRECTED PATY Last Admin: 04/24/21 12:26 Dose: 100 mls/hr Documented by: Oxytocin/Lactated Ringer's (Pitocin In Lr 10 Units/1,000 Ml) 10 unit in 1,000 mls @ 12 mls/hr IV TITRATE PATY; Protocol Last Titration: 04/24/21 17:30 Dose: 0 munits/min, 0 mls/hr Documented by: Oxytocin/Lactated Ringer's (Pitocin In Lr 10 Units/1,000 Ml) 10 unit in 1,000 mls @ 500 mls/hr IV .CONTINUOUS PATY Last Admin: 04/24/21 18:10 Dose: 500 mls/hr Documented by: Sodium Chloride (Normal Saline) 1,000 mls @ 125 mls/hr IV ASDIRECTED PATY Last Admin: 04/24/21 10:05 Dose: 125 mls/hr Documented by: Oxytocin/Lactated Ringer's (Pitocin In Lr 10 Units/1,000 Ml) Confirm Administered Dose 10 unit in 1,000 mls @ as directed IV .STK-MED ONE Stop: 04/24/21 18:11 Last Admin: 04/24/21 18:40 Dose: Not Given Documented by: Lidocaine HCl (Lidocaine 1% 50 Ml Mdv) 50 ml INJECT ONETIME ONE Stop: 04/24/21 08:46 Last Admin: 04/24/21 18:40 Dose: Not Given Documented by: Nalbuphine HCl (Nalbuphine 10 Mg/1 Ml Vial) 10 mg IVPUSH Q2H PRN PRN Reason: Pain Last Admin: 04/24/21 16:20 Dose: 10 mg Documented by: Ondansetron HCl (Ondansetron 4 Mg/2 Ml Sdv) 4 mg IVPUSH Q4H PRN PRN Reason: Nausea/Vomiting Sodium Chloride (Sodium Chloride 0.9% 10 Ml Syringe) 10 ml FLUSH ASDIRECTED PRN PRN Reason: Keep Vein Open - Infant Interaction Disposition, : to Nursery Support Person: Significant Other - Recovery Exam Fundal Tone: Firm Fundal Level: At Umbilicus Fundal Placement: Midline Lochia Amount: Small, Moderate Lochia Color: Rubra/Red Perineum Description: Intact, Minimal Bruising/Swelling Episiotomy/Laceration: None Bladder Status: Voiding Urinary Elimination: Voided - Exam General: Alert, Oriented HEENT: Pupils Equal Neck: Supple Lungs: Clear to Auscultation, Normal Respiratory Effort Cardiovascular: Regular Rate, Regular Rhythm GI/Abdominal Exam: Normal Bowel Sounds, Soft Extremities: Normal Inspection, Normal Range of Motion, Non-Tender, No Pedal Edema, Normal Capillary Refill Skin: Warm, Dry, Intact Wound/Incisions: Healing Well Neurological: No New Focal Deficit Psy/Mental Status: Alert, Normal Affect, Normal Mood - Problem List Review Problem List Initiated/Reviewed/Updated: Yes - My Orders Last 24 Hours: My Active Orders 04/24/21 Breakfast Regular Diet [DIET] 04/24/21 08:45 Resuscitation Status Routine 04/24/21 18:04 Benzocaine/Menthol [Dermoplast Pain Relief [place]] See Dose Instructions TOP ASDIRECTED PRN Docusate Sodium [Colace] 100 mg PO BID PRN Ibuprofen [Motrin] 600 mg PO Q6H PRN witch Laura [Tucks] 1 pad TOP ASDIRECTED PRN 04/24/21 18:04 Activity as Tolerated [RC] PER UNIT ROUTINE Vital Signs [RC] ,,, Assess Lochia [WOMSER] Per Unit Routine Assess Uterine Involution [WOMSER] Per Unit Routine Breast Pump [WOMSER] Per Unit Routine Medication Administration Instruction [OM.PC] Routine Perineal Care [OM.PC] Per Unit Routine Sitz Bath [OM.PC] Per Unit Routine 04/24/21 18:15 Heat Therapy [OM.PC] PRN 04/25/21 18:15 Heat Therapy [OM.PC] PRN - Assessment Assessment:: s/p without complications No issues this morning Desires discharge tomorrow.
[2021-04-26] MEDS: Ibuprofen 600 MG Tab PO PRN (05:30)
--- NOTE | 2021-04-26 06:52 | PCM.DCSUM1 ---
Discharge Summary - Hospital Course Brief History: 20 year old s/p . Uncomplicated course. Diagnosis: Stroke: No - Discharge Data Discharge Date: 04/26/21 Discharge Disposition: Home, Self-Care 01 Condition: Good - Referral to Home Health Primary Care Physician: Jammie Salomon MD - Patient Summary/Data Hospital Course: Stage I - Patient presented for induction of labor. AROM clear fluid. Pitocin. Progressed to complete with overall reassuring heart tones. Stage II - of viable female, weight 3520, 8/8 APGARS at 1733. Head delivered in controlled manner over intact perineum. Body and shoulders followed without difficulty. To maternal abdomen. Positive cry. Cord clamped and cut and baby to warmer. Cord blood collected. Stage III - of intact placenta. 3vc. Increased bleeding. Straight cath. No laceration. QBL pending. - Patient Instructions Diet: Usual Diet as Tolerated Activity: No Strenuous Activities Activity, Other: pelvic rest Driving: May Drive Today Wound/Incision Care: Keep Operative Site/Wound Site Clean and Dry, Change Dressing Daily, Do NOT Change Dressing Notify Provider of: Fever, Increased Pain, Swelling and Redness, Drainage, Nausea and/or Vomiting - Discharge Plan *PRESCRIPTION DRUG MONITORING PROGRAM REVIEWED*: No *COPY OF PRESCRIPTION DRUG MONITORING REPORT IN PATIENT TAI: No Home Medications: Home Meds Insulin Glargine,Hum.Rec.Anlog [Lantus Solostar] 6 unit SQ DAILY 04/14/21 [History] Pnv No.95/Ferrous Fum/Folic AC [ Tablet] 1 each PO DAILY 04/14/21 [History] Famotidine [Pepcid] 20 mg PO ASDIRECTED PRN 04/18/21 [History] Referrals: Jammie Salomon MD [Primary Care Provider] - (2 week) - Discharge Summary/Plan Comment DC Time >30 min.: No - General Info Date of Service: 04/26/21 Functional Status: Reports: Pain Controlled - Review of Systems General: Reports: No Symptoms HEENT: Reports: No Symptoms Pulmonary: Reports: No Symptoms Cardiovascular: Reports: No Symptoms Gastrointestinal: Reports: No Symptoms Genitourinary: Reports: No Symptoms Musculoskeletal: Reports: No Symptoms Skin: Reports: No Symptoms Neurological: Reports: No Symptoms Psychiatric: Reports: No Symptoms - Patient Data Vitals - Most Recent: Last Vital Signs Temp 36.3 C 04/26/21 02:47 Pulse 75 04/26/21 02:47 Resp 16 04/26/21 02:47 BP 129/55 L 04/26/21 02:47 Pulse Ox 99 04/26/21 02:47 Weight - Most Recent: 124.919 kg Med Orders - Current: Current Medications Benzocaine/Menthol (Benzocaine/Menthol 20%-0.5% [place] 56 Gm Canister) 0 gm TOP ASDIRECTED PRN PRN Reason: Perineal Comfort Measure Last Admin: 04/25/21 01:19 Dose: 1 applic Documented by: Docusate Sodium (Docusate Sodium 100 Mg Cap) 100 mg PO BID PRN PRN Reason: Constipation Ibuprofen (Ibuprofen 600 Mg Tab) 600 mg PO Q6H PRN PRN Reason: Mild pain or fever Last Admin: 04/26/21 05:30 Dose: 600 mg Documented by: Trav Sanchez (Trav Sanchez Medicated Pads 40/Jar) 1 pad TOP ASDIRECTED PRN PRN Reason: Perineal Comfort Measure Last Admin: 04/25/21 01:19 Dose: 1 applic Documented by: Discontinued Medications Calcium Carbonate/Glycine (Calcium Carbonate 500 Mg Tab.Chew) 1,000 mg PO Q2H PRN PRN Reason: Indigestion Lactated Ringer's (Ringers, Lactated) 1,000 mls @ 100 mls/hr IV ASDIRECTED PATY Last Admin: 04/24/21 12:26 Dose: 100 mls/hr Documented by: Oxytocin/Lactated Ringer's (Pitocin In Lr 10 Units/1,000 Ml) 10 unit in 1,000 mls @ 12 mls/hr IV TITRATE PATY; Protocol Last Titration: 04/24/21 17:30 Dose: 0 munits/min, 0 mls/hr Documented by: Oxytocin/Lactated Ringer's (Pitocin In Lr 10 Units/1,000 Ml) 10 unit in 1,000 mls @ 500 mls/hr IV .CONTINUOUS PATY Last Admin: 04/24/21 18:10 Dose: 500 mls/hr Documented by: Sodium Chloride (Normal Saline) 1,000 mls @ 125 mls/hr IV ASDIRECTED PATY Last Admin: 07/16/21 10:05 Dose: 125 mls/hr Documented by: Oxytocin/Lactated Ringer's (Pitocin In Lr 10 Units/1,000 Ml) Confirm Administered Dose 10 unit in 1,000 mls @ as directed IV .STK-MED ONE Stop: 04/24/21 18:11 Last Admin: 04/24/21 18:40 Dose: Not Given Documented by: Lidocaine HCl (Lidocaine 1% 50 Ml Mdv) 50 ml INJECT ONETIME ONE Stop: 04/24/21 08:46 Last Admin: 04/24/21 18:40 Dose: Not Given Documented by: Nalbuphine HCl (Nalbuphine 10 Mg/1 Ml Vial) 10 mg IVPUSH Q2H PRN PRN Reason: Pain Last Admin: 04/24/21 16:20 Dose: 10 mg Documented by: Ondansetron HCl (Ondansetron 4 Mg/2 Ml Sdv) 4 mg IVPUSH Q4H PRN PRN Reason: Nausea/Vomiting Sodium Chloride (Sodium Chloride 0.9% 10 Ml Syringe) 10 ml FLUSH ASDIRECTED PRN PRN Reason: Keep Vein Open - Exam General: Reports: Alert, Oriented HEENT: Reports: Pupils Equal, Pupils Reactive, EOMI, Mucous Membr. Moist/[place] Neck: Reports: Supple Lungs: Reports: Clear to Auscultation, Normal Respiratory Effort Cardiovascular: Reports: Regular Rate, Regular Rhythm GI/Abdominal Exam: Normal Bowel Sounds, Soft, Non-Tender, No Organomegaly, No Distention, No Abnormal Bruit, No Mass Rectal (Female) Exam: Normal Exam, Normal Rectal Tone Back Exam: Reports: Normal Inspection, Full Range of Motion Extremities: Normal Inspection, Normal Range of Motion, Non-Tender, No Pedal Edema, Normal Capillary Refill Skin: Reports: Warm, Dry, Intact Wound/Incisions: Reports: Healing Well Neurological: Reports: No New Focal Deficit Psy/Mental Status: Reports: Alert, Normal Affect, Normal Mood
== END 2021-04-26 10:30 | disposition home or self-care (01) | DRG 807 ==
LOC: JD.OB 07:01 → OBSVTOIN 17:33 → JD.OB 17:34
PROVIDERS: ADMIT Obstetrics & Gynecology; ATTEND Obstetrics & Gynecology
PROC: 10E0XZZ Delivery of Products of Conception, External Approach (ICD-10-PCS; principal; 2021-04-24)
PROC: 10907ZC Drainage of Amniotic Fluid, Therapeutic from Products of Conception, Via Natural or Artificial Opening (ICD-10-PCS; 2021-04-24)
PROC: 3E033VJ Introduction of Other Hormone into Peripheral Vein, Percutaneous Approach (ICD-10-PCS; 2021-04-24)
DX: O24.429 Gestational diabetes mellitus in childbirth, unspecified control (principal); Z37.0 Single live birth; Z79.4 Long term (current) use of insulin; O99.62 Diseases of the digestive system complicating childbirth; K21.9 Gastro-esophageal reflux disease without esophagitis; O99.214 Obesity complicating childbirth; O99.02 Anemia complicating childbirth; D64.9 Anemia, unspecified; Z3A.38 38 weeks gestation of pregnancy; Z91.010 Allergy to peanuts; Z91.013 Allergy to seafood; Z88.8 Allergy status to other drugs, medicaments and biological substances; Z90.49 Acquired absence of other specified parts of digestive tract
CPT/HCPCS: 36415; 36430; 51701; 59025; 59409; 82947; 85007; 85025; 85027; 86592; 86850; 86900; 86901; 86922; A9270-GY; J2300; J2590; J7030; J7120; P9016; U0002

== ENCOUNTER 2021-07-02 18:03 | Emergency (ER) | payer MEDICAID ==
--- NOTE | 2021-07-02 18:48 | EDM.PDOC ---
ED HPI GENERAL MEDICAL PROBLEM - General Chief Complaint: General Stated Complaint: SORE THROAT/BACK OF NECK IS HOT /RUNNY NOSE Time Seen by Provider: 07/02/21 18:17 Source of Information: Reports: Patient, RN Notes Reviewed History Limitations: Reports: No Limitations - History of Present Illness INITIAL COMMENTS - FREE TEXT/NARRATIVE: Patient is a 20-year-old female who presents to the ER for the evaluation of a multitude of sick-like symptoms. 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 States that over the last 3 days she has had body aches, elevated temperatures, sore throat, nasal congestion, shortness of breath, with some nausea and one episode of vomiting. Patient also states that she has multiple family members at home that are sick. She does state however that they were tested for COVID- 19 and it was negative. Patient has not been vaccinated for COVID-19 nor has she contracted the disease for which she knows of. Posterior Neck Pain Score (Numeric/FACES): 8 - Related Data Allergies Allergy/AdvReac Type Severity Reaction Status Date / Time nut - unspecified Allergy Severe Bronchospas Verified 07/02/21 18:26 ms shellfish derived Allergy Severe Facial Verified 07/02/21 18:26 Swelling nitrofurantoin Allergy Intermediate Hives Verified 07/02/21 18:26 [From Macrobid] Home Meds: Home Meds . 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 ED EXAM, GENERAL - Physical Exam Exam: See Below Exam Limited By: No Limitations General Appearance: Alert, WD/WN, No Apparent Distress Respiratory/Chest: No Respiratory Distress, Lungs Clear, No Accessory Muscle Use, Chest Non-Tender, Decreased Breath Sounds (decreased bilaterally) Cardiovascular: Normal Peripheral Pulses, Regular Rate, Rhythm, No Edema Extremities: Normal Inspection, Normal Capillary Refill Neurological: Alert, Oriented, Normal Cognition, No Motor/Sensory Deficits Psychiatric: Normal Affect, Normal Mood Skin Exam: Warm, Dry, Intact, Normal Color, No Rash Course - Vital Signs Last Recorded V/S: Last Vital Signs Temp 97.5 F 07/02/21 18:23 Pulse 95 07/02/21 18:23 Resp 16 07/02/21 18:23 BP 131/84 07/02/21 18:23 Pulse Ox 99 07/02/21 18:23 - Orders/Labs/Meds Orders: Active Orders 24 hr Category Date Time Status Chest 1V Frontal [CR] Stat Exams 07/02/21 19:57 Ordered Labs: Laboratory Tests 07/02/21 07/02/21 Range/Units 18:17 18:17 SARS-CoV-2 RNA (GAY) Positive H (NEGATIVE) Group A Strep (PCR) Not detected (NOT DETECT) - Re-Assessments/Exams Free Text/Narrative Re-Assessment/Exam: 07/02/21 18:47 Patient presents to the ER for her [id number] symptoms, we will go ahead and get a COVID-19 swab for today's purposes along with a strep swab for evaluation. 07/02/21 19:54 Patient's coronavirus screen did come back positive for today's purposes. I was told by nursing staff, that we have limited doses of Regeneron, they are trying to ration these for patients that need them the most and I agree that the patient could probably go home and follow-up on outpatient basis for management. 07/02/21 20:29 Patient's chest x-ray is negative for any acute infiltrates at this time. Chest x-ray was also taken for baseline comparison in case the patient should worsen in her respiratory status. Departure - Departure Time of Disposition: 19:55 Disposition: Home, Self-Care 01 Condition: Good Clinical Impression: COVID-19 - Discharge Information *PRESCRIPTION DRUG MONITORING PROGRAM REVIEWED*: No *COPY OF PRESCRIPTION DRUG MONITORING REPORT IN PATIENT TAI: No Instructions: COVID-19 Frequently Asked Questions, 10 Things You Can Do to Manage Your COVID-19 Symptoms at Home - [facility] (04/24/2021) Referrals: Daniel Fitzgerald MD [Primary Care Provider] - Forms: ED Department Discharge, ED Return to Work/School Form Additional Instructions: You were seen in the ER today for ongoing and/or worsening respiratory symptoms. Your chest x-ray showed no signs of pneumonia at this time. Your oxygen levels were great at 98% on room air. There is an IV monoclonal antibody therapy that can be given to you on outpatient basis, please call your regular care provider tomorrow, and inquire about getting this set up for ongoing management of your COVID-19 disease. This can be set up and scheduled for you at a time that is convenient for you. Please try to increase your oral fluid intake, and eat multiple small meals throughout the day, to keep yourself healthy. You need to keep yourself nourished in order to fight off this disease. You can try a liquid diet like gatorade/powerade as well to get your electrolytes. You may take 500 mg Tylenol every hours 6 hours for pain/fever relief. Do not exceed 4000 mg Tylenol in a 24-hour time span. However, running a fever is your body's natural response to illness, and it allows the body to develop antibodies to disease, we are recommending trying to limit the use of Tylenol as much as possible to allow your body's natural immune response. Recommend you obtain a pulse oximeter and monitor your oxygen levels at home, you should place the monitor on your finger, and sit in a calm, quiet position for a few minutes and then record the number that is on the screen. If this consistently below 90% on room air without movement, this would be cause for concern to come back to the hospital for further management of your COVID-19 disease. Please follow all guidance set forth from [facility], regarding isolation purposes for your disease process. General isolation times are 10 days from when you started being symptomatic. Sepsis Event Note (ED) - Evaluation Sepsis Screening Result: No Definite Risk - Focused Exam Vital Signs: Vital Signs Temp Pulse Resp BP Pulse Ox 07/02/21 18:23 97.5 F 95 16 131/84 99 07/02/21 18:21 97.5 F 89 16 98 - My Orders Last 24 Hours: My Active Orders 07/02/21 19:57 Chest 1V Frontal [CR] Stat - Assessment/Plan Last 24 Hours: My Active Orders 07/02/21 19:57 Chest 1V Frontal [CR] Stat
--- NOTE | 2021-07-03 06:55 | CR ---
Chest: Portable view of the chest was obtained. Comparison: No prior chest imaging is available. Heart size and mediastinum are normal. Lungs show no definite acute parenchymal change. Bony structures show nothing acute. Impression: 1. Nothing acute is seen on portable chest x-ray. Diagnostic code #1
== END 2021-07-02 20:42 | disposition home or self-care (01) ==
LOC: JD.ED 18:03
DX: U07.1 COVID-19 (principal); Z91.010 Allergy to peanuts; Z91.013 Allergy to seafood; Z88.1 Allergy status to other antibiotic agents
CPT/HCPCS: 71045; 71045-26; 87651-QW; 99284-25; U0002

== ENCOUNTER 2021-07-24 20:20 | Emergency (ER) | payer MEDICAID, OTHER ==
--- NOTE | 2021-07-24 21:15 | EDM.PDOC ---
ED HPI GENERAL MEDICAL PROBLEM - General Chief Complaint: Upper Extremity Injury/Pain Stated Complaint: LEFT HAND INJURY Time Seen by Provider: 07/24/21 20:47 Source of Information: Reports: Patient, RN Notes Reviewed History Limitations: Reports: No Limitations - History of Present Illness INITIAL COMMENTS - FREE TEXT/NARRATIVE: Patient is a 20-year-old female presenting to the emergency department with complaints of pain to her left hand. Reports that earlier in the day one of her friends scared her and she hit her hand on a door frame. She can move it, however it is uncomfortable. Reports some tingling into her left thumb. Denies any previous injuries to this extremity. Left Hand Pain Score (Numeric/FACES): 5 - Related Data Allergies Allergy/AdvReac Type Severity Reaction Status Date / Time nut - unspecified Allergy Severe Bronchospas Verified 07/24/21 20:44 ms shellfish derived Allergy Severe Facial Verified 07/24/21 20:44 Swelling nitrofurantoin Allergy Intermediate Hives Verified 07/24/21 20:44 [From Macrobid] Home Meds: Home Meds . 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 ED EXAM, GENERAL - Physical Exam Exam: See Below Exam Limited By: No Limitations General Appearance: Alert, WD/WN, No Apparent Distress Respiratory/Chest: No Respiratory Distress, Lungs Clear, Normal Breath Sounds, No Accessory Muscle Use, Chest Non-Tender Cardiovascular: Normal Peripheral Pulses, Regular Rate, Rhythm, No Edema, No Gallop, No JVD, No Murmur, No Rub Extremities: Other (Area of mild swelling and tenderness to palpation to the lateral aspect of the left hand immediately proximal to the MCP joint of the thumb. No obvious deformity.) Neurological: Alert, Oriented, CN II-XII Intact, Normal Cognition, Normal Gait, Normal Reflexes, No Motor/Sensory Deficits Psychiatric: Normal Affect, Normal Mood Skin Exam: Warm, Dry, Intact, Normal Color, No Rash Course - Vital Signs Last Recorded V/S: Last Vital Signs Temp 96.9 F 07/24/21 20:42 Pulse 84 07/24/21 20:42 Resp 18 07/24/21 20:42 BP 125/87 07/24/21 20:42 Pulse Ox 99 07/24/21 20:42 - Orders/Labs/Meds Orders: Active Orders 24 hr Category Date Time Status Hand Comp Min 3V Lt [CR] Stat Exams 07/24/21 20:47 Taken - Re-Assessments/Exams Free Text/Narrative Re-Assessment/Exam: Patient is a 20-year-old female presenting to the emergency department complaints of pain to her left hand. Reports early in the day she hit it on a door frame. She can move it, however it is comfortable. I ordered x-rays of the left hand. 07/24/21 21:13 X-ray of the left hand shows no bony abnormalities. Stevie wrap was applied for comfort. Recommend intermittent icing. Discharge instructions as documented. Departure - Departure Time of Disposition: 21:15 Disposition: Home, Self-Care 01 Condition: Good Clinical Impression: Contusion of hand, left Qualifiers: Encounter type: initial encounter Qualified Code(s): S60.222A - Contusion of left hand, initial encounter - Discharge Information *PRESCRIPTION DRUG MONITORING PROGRAM REVIEWED*: No *COPY OF PRESCRIPTION DRUG MONITORING REPORT IN PATIENT TAI: No Instructions: Contusion, [id number] Referrals: Arleen Khalil NP [Primary Care Provider] - Additional Instructions: You were seen in the emergency department today for pain to your left hand. X- rays were completed and found to be normal. With the separate from a hand contusion. Stevie wrap has been applied for comfort. Wear this as needed for the next few days. Recommend intermittent icing as well as Tylenol and ibuprofen as needed. If you are still having significant discomfort after 1 week, recommend follow-up in the clinic. Return to ER as needed. Sepsis Event Note (ED) - Focused Exam Vital Signs: Vital Signs Temp Pulse Resp BP Pulse Ox 07/24/21 20:42 96.9 F 84 18 125/87 99 - My Orders Last 24 Hours: My Active Orders 07/24/21 20:47 Hand Comp Min 3V Lt [CR] Stat - Assessment/Plan Last 24 Hours: My Active Orders 07/24/21 20:47 Hand Comp Min 3V Lt [CR] Stat
--- NOTE | 2021-07-24 21:21 | CR ---
Left hand: 3 views of the left hand were obtained. Comparison: No prior hand exam is available. Joint spaces are preserved. No fracture, dislocation or other bony abnormality is appreciated. Impression: 1. Nothing acute is seen on left hand exam. Diagnostic code #1
== END 2021-07-24 21:35 | disposition home or self-care (01) ==
LOC: JD.ED 20:20
DX: S60.222A Contusion of left hand, initial encounter (principal); E66.9 Obesity, unspecified; Z91.010 Allergy to peanuts; Z91.013 Allergy to seafood; Z88.1 Allergy status to other antibiotic agents; Z68.38 Body mass index [BMI] 38.0-38.9, adult; W22.09XA Striking against other stationary object, initial encounter
CPT/HCPCS: 73130-26-LT; 73130-LT; 99283-25

== ENCOUNTER 2021-09-10 12:01 | Emergency (ER) | payer OTHER ==
[2021-09-10] MEDS ORDERED: Sodium Chloride 0.9% 10 ML Syringe FLUSH PRN (13:07)
[2021-09-10] MEDS ORDERED: Ondansetron 4 MG/2 ML SDV IVPUSH ONE (13:07)
[2021-09-10] MEDS ORDERED: Sodium Chloride 0.9% 1,000 ML IV SCH (13:15)
[2021-09-10 13:58] LABS: CORONAVIRUS COVID-19 NAA NEGATIVE (NEGATIVE)
--- NOTE | 2021-09-10 13:58 | EDM.PDOC ---
ED HPI GENERAL MEDICAL PROBLEM - General Chief Complaint: Abdominal Pain Stated Complaint: LOWER ABD PAIN/CONGESTED Time Seen by Provider: 09/10/21 12:53 Source of Information: Reports: Patient, RN Notes Reviewed History Limitations: Reports: No Limitations - History of Present Illness INITIAL COMMENTS - FREE TEXT/NARRATIVE: Patient is a 20-year-old female presenting to the emergency department with complaints of a 1 week history of lower abdominal pain, worse on the right side. Reports she has had occasional diarrhea but "nothing major ". She did have one episode of vomiting last week. She also reports nasal congestion for the last 4 days. Patient ports that she has not had a period since the of her child 4 months ago. She did take a home test a few days back and states that there was a faint blue line. She then repeated it the next day and it was negative. Reports that she has had light pink vaginal discharge but denies any burning, itching, or foul smell. She is had no dysuria. She does have some low back pain, which she states she also had at the beginning of her previous . She has had previous appendectomy. Denies any fever or chills. 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: Reports: Other (see below) Other 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: tylenol,vicks Middle Abdomen Pain Score (Numeric/FACES): 10 - Related Data Allergies Allergy/AdvReac Type Severity Reaction Status Date / Time nut - unspecified Allergy Severe Bronchospas Verified 07/24/21 20:44 ms shellfish derived Allergy Severe Facial Verified 07/24/21 20:44 Swelling nitrofurantoin Allergy Intermediate Hives Verified 07/24/21 20:44 [From Macrobid] Home Meds: Home Meds Doxycycline [Vibra-Tabs] 100 mg PO Q12HR 14 Days #28 tab 09/10/21 [Rx] metroNIDAZOLE [Flagyl] 500 mg PO Q12H 14 Days #28 tab 09/10/21 [Rx] Past Medical History Gastrointestinal History: Reports: GERD Genitourinary History: Reports: UTI, Recurrent COMMUNITY RELATIONS OFFICER History: Reports: , Other (See Below) Other COMMUNITY RELATIONS OFFICER History: , gestational diabetes Musculoskeletal History: Reports: Fracture Endocrine/Metabolic History: Reports: Diabetes, Gestational, Obesity/BMI 30+ Hematologic History: Reports: Anemia - Infectious Disease History Infectious Disease History: Reports: Influenza, Novel Coronavirus - Past Surgical History HEENT Surgical History: Reports: None GI Surgical History: Reports: Appendectomy Musculoskeletal Surgical History: Reports: Other (See Below) Other Musculoskeletal Surgeries/Procedures:: plate to Fx'd clavicle. 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 Denies: Fever, Chills HEENT: Reports: Rhinitis Respiratory: Reports: No Symptoms. Denies: Shortness of Breath, Cough Cardiovascular: Reports: No Symptoms Endocrine: Reports: No Symptoms GI/Abdominal: Reports: Abdominal Pain (Pelvic cramping), Diarrhea, Vomiting : Reports: No Symptoms Musculoskeletal: Reports: No Symptoms Skin: Reports: No Symptoms Neurological: Reports: No Symptoms Psychiatric: Reports: No Symptoms Hematologic/Lymphatic: Reports: No Symptoms Immunologic: Reports: No Symptoms ED EXAM, GI/ABD - Physical Exam Exam: See Below Exam Limited By: No Limitations General Appearance: Alert, WD/WN, No Apparent Distress Respiratory/Chest: No Respiratory Distress, Lungs Clear, Normal Breath Sounds, No Accessory Muscle Use, Chest Non-Tender Cardiovascular: Normal Peripheral Pulses, Regular Rate, Rhythm, No Edema, No Gallop, No JVD, No Murmur, No Rub GI/Abdominal Exam: Normal Bowel Sounds, Soft, No Organomegaly, No Distention, No Abnormal Bruit, No Mass, Pelvis Stable, Tender (Mild mid and right lateral suprapubic tenderness) (Female) Exam: Normal External Exam, Normal Speculum Exam, Adnexal Tenderness (Right), Cervix Motion Tenderness. No: Vaginal Bleeding, Vaginal Discharge, Vaginal Lesions Neurological: Alert, Oriented, Normal Cognition, Normal Gait, No Motor/Sensory Deficits Psychiatric: Normal Affect, Normal Mood Skin Exam: Warm, Dry, Intact, Normal Color, No Rash Course - Vital Signs Last Recorded V/S: Last Vital Signs Temp 96.9 F 09/10/21 13:01 Pulse 78 09/10/21 13:01 Resp 20 09/10/21 13:01 BP 131/94 H 09/10/21 13:01 Pulse Ox 99 09/10/21 13:01 - Orders/Labs/Meds Orders: Active Orders 24 hr Category Date Time Status Peripheral IV Insertion Adult [OM.PC] Stat Oth 09/10/21 13:07 Ordered Labs: Laboratory Tests 09/10/21 09/10/21 09/10/21 Range/Units 13:05 13:35 13:35 WBC (3.98-10.04) K/mm3 RBC (3.98-5.22) M/mm3 Hgb (11.2-15.7) gm/dl Hct (34.1-44.9) % MCV (79.4-94.8) fl MCH (25.6-32.2) pg MCHC (32.2-35.5) g/dl RDW Std Deviation (36.4-46.3) fL Plt Count (182-369) K/mm3 MPV (9.4-12.3) fl Neut % (Auto) (34.0-71.1) % Lymph % (Auto) (19.3-51.7) % [place] % (Auto) (4.7-12.5) % Eos % (Auto) (0.7-5.8) Baso % (Auto) (0.1-1.2) % Neut # (Auto) (1.56-6.13) K/mm3 Lymph # (Auto) (1.18-3.74) K/mm3 [place] # (Auto) (0.24-0.36) K/mm3 Eos # (Auto) (0.04-0.36) K/mm3 Baso # (Auto) (0.01-0.08) K/mm3 Sodium (136-145) mEq/L Potassium (3.5-5.1) mEq/L Chloride (98-107) mEq/L Carbon Dioxide (21-32) mEq/L Anion Gap (5-15) BUN (7-18) mg/dL Creatinine (0.55-1.02) mg/dL Est Cr Clr Drug Dosing mL/min Estimated GFR (MDRD) (>60) mL/min BUN/Creatinine Ratio (14-18) Glucose (70-99) mg/dL Calcium (8.5-10.1) mg/dL Magnesium (1.8-2.4) mg/dL Total Bilirubin (0.2-1.0) mg/dL AST (15-37) U/L ALT (14-59) U/L Alkaline Phosphatase (46-116) U/L C-Reactive Protein (<1.0) mg/dL Total Protein (6.4-8.2) g/dl Albumin (3.4-5.0) g/dl Globulin gm/dL Albumin/Globulin Ratio (1-2) Lipase (73-393) U/L HCG, Quant mIU/mL Urine Color Yellow (Yellow) Urine Appearance Clear (Clear) Urine pH 6.0 (5.0-8.0) Ur Specific [place] > or = 1.030 (1.005-1.030) Urine Protein Negative (Negative) Urine Glucose (UA) Negative (Negative) Urine Ketones Negative (Negative) Urine Occult Blood Negative (Negative) Urine Nitrite Negative (Negative) Urine Bilirubin Negative (Negative) Urine Urobilinogen 1.0 (0.2-1.0) Ur Leukocyte Esterase Negative (Negative) Urine RBC 0-5 (0-5) /hpf Urine WBC 0-5 (0-5) /hpf Ur Squamous Epith Cells 0-5 (0-5) /hpf Urine Bacteria Few (FEW) /hpf Urine Mucus Few (FEW) /hpf Influenza Type A RNA Negative (NEGATIVE) Influenza Type B RNA Negative (NEGATIVE) SARS-CoV-2 RNA (GAY) Negative (NEGATIVE) C trachomatis DNA (PCR) Not detected N gonorrhoeae DNA (PCR) Not detected 09/10/21 09/10/21 Range/Units 14:43 14:43 WBC 6.29 (3.98-10.04) K/mm3 RBC 4.21 (3.98-5.22) M/mm3 Hgb 11.9 D (11.2-15.7) gm/dl Hct 37.4 (34.1-44.9) % MCV 88.8 D (79.4-94.8) fl MCH 28.3 (25.6-32.2) pg MCHC 31.8 L (32.2-35.5) g/dl RDW Std Deviation 44.0 (36.4-46.3) fL Plt Count 348 (182-369) K/mm3 MPV 9.5 (9.4-12.3) fl Neut % (Auto) 37.4 (34.0-71.1) % Lymph % (Auto) 52.6 H (19.3-51.7) % [place] % (Auto) 7.3 (4.7-12.5) % Eos % (Auto) 2.2 (0.7-5.8) Baso % (Auto) 0.3 (0.1-1.2) % Neut # (Auto) 2.35 (1.56-6.13) K/mm3 Lymph # (Auto) 3.31 (1.18-3.74) K/mm3 [place] # (Auto) 0.46 H (0.24-0.36) K/mm3 Eos # (Auto) 0.14 (0.04-0.36) K/mm3 Baso # (Auto) 0.02 (0.01-0.08) K/mm3 Sodium 145 (136-145) mEq/L Potassium 4.1 (3.5-5.1) mEq/L Chloride 108 H (98-107) mEq/L Carbon Dioxide 27 (21-32) mEq/L Anion Gap 14.1 (5-15) BUN 11 (7-18) mg/dL Creatinine 1.0 (0.55-1.02) mg/dL Est Cr Clr Drug Dosing 85.81 mL/min Estimated GFR (MDRD) > 60 (>60) mL/min BUN/Creatinine Ratio 11.0 L (14-18) Glucose 86 (70-99) mg/dL Calcium 8.7 (8.5-10.1) mg/dL Magnesium 2.1 (1.8-2.4) mg/dL Total Bilirubin 0.3 (0.2-1.0) mg/dL AST 18 (15-37) U/L ALT 21 (14-59) U/L Alkaline Phosphatase 82 (46-116) U/L C-Reactive Protein 1.6 H* (<1.0) mg/dL Total Protein 7.9 (6.4-8.2) g/dl Albumin 3.4 (3.4-5.0) g/dl Globulin 4.5 gm/dL Albumin/Globulin Ratio 0.8 L (1-2) Lipase 98 (73-393) U/L HCG, Quant < 1.0 mIU/mL Urine Color (Yellow) Urine Appearance (Clear) Urine pH (5.0-8.0) Ur Specific [place] (1.005-1.030) Urine Protein (Negative) Urine Glucose (UA) (Negative) Urine Ketones (Negative) Urine Occult Blood (Negative) Urine Nitrite (Negative) Urine Bilirubin (Negative) Urine Urobilinogen (0.2-1.0) Ur Leukocyte Esterase (Negative) Urine RBC (0-5) /hpf Urine WBC (0-5) /hpf Ur Squamous Epith Cells (0-5) /hpf Urine Bacteria (FEW) /hpf Urine Mucus (FEW) /hpf Influenza Type A RNA (NEGATIVE) Influenza Type B RNA (NEGATIVE) SARS-CoV-2 RNA (GAY) (NEGATIVE) C trachomatis DNA (PCR) N gonorrhoeae DNA (PCR) Meds: Medications Discontinued Medications Generic Name Dose Route Start Last Admin Trade Name Freq PRN Reason Stop Dose Admin Ceftriaxone Sodium 1 gm/ 0 gm 09/10/21 18:52 09/10/21 19:18 Lidocaine HCl 2.1 ml IM 09/10/21 18:53 1 inj ONETIME ONE Administration Hydromorphone HCl 0.5 mg 09/10/21 15:22 09/10/21 19:30 Hydromorphone 0.5 Mg/0.5 Ml Syringe IVPUSH 09/10/21 15:23 Not Given ONETIME ONE Sodium Chloride 1,000 mls @ 150 mls/hr 09/10/21 13:15 09/10/21 13:54 Normal Saline IV 150 mls/hr ASDIRECTED PATY Administration Ketorolac Tromethamine 30 mg 09/10/21 15:53 09/10/21 19:30 Ketorolac 30 Mg/Ml Sdv IVPUSH 09/10/21 15:54 Not Given ONETIME ONE Ketorolac Tromethamine Confirm 09/10/21 19:22 Ketorolac 30 Mg/Ml Sdv Administered 09/10/21 19:23 Dose 30 mg .ROUTE .STK-MED ONE Ondansetron HCl 4 mg 09/10/21 13:07 09/10/21 13:55 Ondansetron 4 Mg/2 Ml Sdv IVPUSH 09/10/21 13:08 4 mg ONETIME ONE Administration Sodium Chloride 10 ml 09/10/21 13:07 09/10/21 13:54 Sodium Chloride 0.9% 10 Ml Syringe FLUSH 10 ml ASDIRECTED PRN Administration Keep Vein Open - Re-Assessments/Exams Free Text/Narrative Re-Assessment/Exam: 09/10/21 18:40 Pelvic exam was completed. Patient has significant cervical motion tenderness and right adnexal tenderness. Wet prep was completed and was significant for moderate white blood cells. Otherwise unremarkable. Given significance of patient's symptoms I would treat for PID. Spoke with patient's chief data officer, Dr. Valdez and she agreed with this plan. Reports doxycycline and Flagyl she will get IM Rocephin and be started on doxycycline, Rocephin and Flagyl are safe with breast-feeding. Recommend follow-up with her chief data officer next week. She is agreement with this plan. Discharge instructions as documented. Departure - Departure Time of Disposition: 18:55 Disposition: Home, Self-Care 01 Condition: Good Clinical Impression: PID (acute pelvic inflammatory disease) - Discharge Information *PRESCRIPTION DRUG MONITORING PROGRAM REVIEWED*: No *COPY OF PRESCRIPTION DRUG MONITORING REPORT IN PATIENT TAI: No Prescriptions: metroNIDAZOLE [Flagyl] 500 mg PO Q12H 14 Days #28 tab Doxycycline [Vibra-Tabs] 100 mg PO Q12HR 14 Days #28 tab Instructions: Pelvic Inflammatory Disease Referrals: Arleen Khalil NP [Primary Care Provider] - Jammie Salomon MD [Physician] - Forms: ED Department Discharge Additional Instructions: Take the doxycycline and Flagyl as prescribed. Ensure that you finish the entire prescription. Use Tylenol and ibuprofen as needed for discomfort. Follow-up with chief data officer next week. Return to ER as needed. Sepsis Event Note (ED) - Focused Exam Vital Signs: Vital Signs Temp Pulse Resp BP Pulse Ox 09/10/21 13:01 96.9 F 78 20 131/94 H 99 - My Orders Last 24 Hours: My Active Orders 09/10/21 13:07 Peripheral IV Insertion Adult [OM.PC] Stat - Assessment/Plan Last 24 Hours: My Active Orders 09/10/21 13:07 Peripheral IV Insertion Adult [OM.PC] Stat
[2021-09-10] MEDS ORDERED: HYDROmorphone 0.5 MG/0.5 ML Syringe IVPUSH ONE (15:22)
[2021-09-10 15:32] LABS: C. TRACHOMATIS BY PCR NOT DETECTED; N. GONORRHOEAE BY PCR NOT DETECTED
--- NOTE | 2021-09-10 16:58 | US ---
Pelvic ultrasound: Multiple real-time images were obtained transvaginally. Comparison: No previous pelvic ultrasound is available. Uterus is anteverted. Endometrial thickness is 3.9 mm. No free fluid is seen. Minimal fluid is seen within the endocervical canal which is likely incidental. Follicles are noted within both ovaries. No larger cyst or solid abnormality is seen. Measurements: Right ovary: 3.2 x 1.6 x 1.7 cm Left ovary: 3.6 x 1.6 x 2.5 cm Uterus: Length 8.8 cm, AP height 4.1 cm, transverse width 6.2 cm Impression: 1. Minimal fluid within the endocervical canal which is likely incidental. 2. Pelvic ultrasound is otherwise unremarkable. Diagnostic code #1
[2021-09-10] MEDS ORDERED: cefTRIAXone 1 GM, Lidocaine 1% 2.1 ML IM ONE ×2 (18:52)
[2021-09-10] MEDS ORDERED: Ketorolac 30 MG/ML SDV ONE (19:22)
[2021-09-10] MEDS: Ketorolac 30 MG/ML SDV IVPUSH ONE ×2 (19:25→19:30)
== END 2021-09-10 19:30 | disposition home or self-care (01) ==
LOC: JD.ED 12:01
DX: N73.9 Female pelvic inflammatory disease, unspecified (principal); E66.9 Obesity, unspecified; Z91.018 Allergy to other foods; Z91.013 Allergy to seafood; Z88.1 Allergy status to other antibiotic agents; Z20.822 Contact with and (suspected) exposure to COVID-19; Z68.41 Body mass index [BMI] 40.0-44.9, adult
CPT/HCPCS: 0240U; 36415; 76830; 80053; 81001; 83690; 83735; 84702; 85025; 86140; 87210; 87491; 87591; 87808; 96372; 96374; 99284; J0696; J2405; J7030; J1885

== ENCOUNTER 2021-09-25 17:56 | Emergency (ER) | payer OTHER ==
[2021-09-25] MEDS ORDERED: Ondansetron 4 MG/2 ML SDV IVPUSH ONE (19:01)
[2021-09-25] MEDS ORDERED: Sodium Chloride 0.9% 1,000 ML IV STA (19:01)
[2021-09-25] MEDS ORDERED: Sodium Chloride 0.9% 10 ML Syringe FLUSH PRN (19:01)
[2021-09-25 19:09] LABS: CORONAVIRUS COVID-19 NAA NEGATIVE (NEGATIVE)
[2021-09-25] MEDS ORDERED: Dicyclomine 10 MG Cap PO ONE (20:00)
--- NOTE | 2021-09-25 20:04 | EDM.PDOC ---
ED HPI GENERAL MEDICAL PROBLEM - General Chief Complaint: Abdominal Pain Stated Complaint: FEVER VOMITING Time Seen by Provider: 09/25/21 18:17 Source of Information: Reports: Patient, RN Notes Reviewed History Limitations: Reports: No Limitations - History of Present Illness INITIAL COMMENTS - FREE TEXT/NARRATIVE: 20-year-old female presenting to the emergency department with complaints of nausea, vomiting, diarrhea, and generalized abdominal discomfort. Symptoms began around 5 AM this morning. Reports she is unable to keep down any food or liquids due to the vomiting. Abdominal discomfort is not localized to any one area. She reports that she had a fever this morning but has not had one since. 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 Denies any blood in her vomit or stool. She is taken no [id number] or prescription medications at home. Abdominal Pain Score (Numeric/FACES): 5 - Related Data Allergies Allergy/AdvReac Type Severity Reaction Status Date / Time nut - unspecified Allergy Severe Bronchospas Verified 09/25/21 18:14 ms shellfish derived Allergy Severe Facial Verified 09/25/21 18:14 Swelling nitrofurantoin Allergy Intermediate Hives Verified 09/25/21 18:14 [From Macrobid] Home Meds: Home Meds Dicyclomine [Bentyl] 20 mg PO Q8H PRN #10 tab 09/25/21 [Rx] Ondansetron [Zofran ODT] 4 mg PO Q6H PRN #10 tab.dis 09/25/21 [Rx] Pnv No.95/Ferrous Fum/Folic AC [ Caplet] 1 tab PO DAILY 09/25/21 [History] Past Medical History Gastrointestinal History: Reports: GERD Genitourinary History: Reports: UTI, Recurrent [employer] History: Reports: , Other (See Below) Other [employer] History: , gestational diabetes Musculoskeletal History: Reports: Fracture Endocrine/Metabolic History: Reports: Diabetes, Gestational, Obesity/BMI 30+ Hematologic History: Reports: Anemia - Infectious Disease History Infectious Disease History: Reports: Influenza, Novel Coronavirus - Past Surgical History HEENT Surgical History: Reports: None GI Surgical History: Reports: Appendectomy Musculoskeletal Surgical History: Reports: Other (See Below) Other Musculoskeletal Surgeries/Procedures:: plate to Fx'd clavicle. 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 Denies: Bloody Stool, Hematemesis, Hematochezia : Reports: No Symptoms. Denies: Dysuria Musculoskeletal: Reports: No Symptoms Skin: Reports: No Symptoms Neurological: Reports: No Symptoms Psychiatric: Reports: No Symptoms Hematologic/Lymphatic: Reports: No Symptoms Immunologic: Reports: No Symptoms ED EXAM, GI/ABD - Physical Exam Exam: See Below Exam Limited By: No Limitations General Appearance: Alert, WD/WN, No Apparent Distress Respiratory/Chest: No Respiratory Distress, Lungs Clear, Normal Breath Sounds, No Accessory Muscle Use, Chest Non-Tender Cardiovascular: Normal Peripheral Pulses, Regular Rate, Rhythm, No Edema, No Gallop, No JVD, No Murmur, No Rub GI/Abdominal Exam: Normal Bowel Sounds, Soft, Non-Tender, No Organomegaly, No Distention, No Abnormal Bruit, No Mass, Pelvis Stable. No: Guarding, Rigid Neurological: Alert, Oriented, CN II-XII Intact, Normal Cognition, Normal Gait, Normal Reflexes, No Motor/Sensory Deficits Psychiatric: Normal Affect, Normal Mood Skin Exam: Warm, Dry, Intact, Normal Color, No Rash Course - Vital Signs Last Recorded V/S: Last Vital Signs Temp 97.5 F 09/25/21 18:12 Pulse 100 09/25/21 18:12 Resp 18 09/25/21 18:12 BP 136/80 09/25/21 18:12 Pulse Ox 97 09/25/21 18:12 - Orders/Labs/Meds Orders: Active Orders 24 hr Category Date Time Status Peripheral IV Care [RC] . DIRECTED Care 09/25/21 19:02 Active Sodium Chloride 0.9% [Saline Flush] Med 09/25/21 19:01 Active 10 ml FLUSH ASDIRECTED PRN Isolation [COMM] Routine Oth 09/25/21 18:16 Ordered Peripheral IV Insertion Adult [OM.PC] Stat Ot 09/25/21 19:01 Ordered Medication Orders Sodium Chloride (Sodium Chloride 0.9% 10 Ml Syringe) 10 ml FLUSH ASDIRECTED PRN PRN Reason: Keep Vein Open Last Admin: 09/25/21 19:17 Dose: 10 ml Documented by: HARITHA Labs: Laboratory Tests 09/25/21 09/25/21 09/25/21 Range/Units 18:18 18:55 18:55 WBC 5.38 (3.98-10.04) K/mm3 RBC 4.68 (3.98-5.22) M/mm3 Hgb 12.8 (11.2-15.7) gm/dl Hct 40.9 (34.1-44.9) % MCV 87.4 (79.4-94.8) fl MCH 27.4 (25.6-32.2) pg MCHC 31.3 L (32.2-35.5) g/dl RDW Std Deviation 45.7 (36.4-46.3) fL Plt Count 369 (182-369) K/mm3 MPV 9.6 (9.4-12.3) fl Neut % (Auto) 62.5 (34.0-71.1) % Lymph % (Auto) 28.4 (19.3-51.7) % [place] % (Auto) 8.4 (4.7-12.5) % Eos % (Auto) 0.7 (0.7-5.8) Baso % (Auto) 0.0 L (0.1-1.2) % Neut # (Auto) 3.36 (1.56-6.13) K/mm3 Lymph # (Auto) 1.53 (1.18-3.74) K/mm3 [place] # (Auto) 0.45 H (0.24-0.36) K/mm3 Eos # (Auto) 0.04 (0.04-0.36) K/mm3 Baso # (Auto) 0.00 L (0.01-0.08) K/mm3 Sodium 141 (136-145) mEq/L Potassium 3.9 (3.5-5.1) mEq/L Chloride 103 (98-107) mEq/L Carbon Dioxide 28 (21-32) mEq/L Anion Gap 13.9 (5-15) BUN 11 (7-18) mg/dL Creatinine 1.2 H (0.55-1.02) mg/dL Est Cr Clr Drug Dosing 71.51 mL/min Estimated GFR (MDRD) > 60 (>60) mL/min BUN/Creatinine Ratio 9.2 L (14-18) Glucose 110 H (70-99) mg/dL Calcium 8.5 (8.5-10.1) mg/dL Total Bilirubin 0.8 (0.2-1.0) mg/dL AST 13 L (15-37) U/L ALT 24 (14-59) U/L Alkaline Phosphatase 88 (46-116) U/L C-Reactive Protein 3.2 H* (<1.0) mg/dL Total Protein 8.5 H (6.4-8.2) g/dl Albumin 3.4 (3.4-5.0) g/dl Globulin 5.1 gm/dL Albumin/Globulin Ratio 0.7 L (1-2) Lipase 73 (73-393) U/L Urine Color (Yellow) Urine Appearance (Clear) Urine pH (5.0-8.0) Ur Specific [place] (1.005-1.030) Urine Protein (Negative) Urine Glucose (UA) (Negative) Urine Ketones (Negative) Urine Occult Blood (Negative) Urine Nitrite (Negative) Urine Bilirubin (Negative) Urine Urobilinogen (0.2-1.0) Ur Leukocyte Esterase (Negative) Urine RBC (0-5) /hpf Urine WBC (0-5) /hpf Ur Squamous Epith Cells (0-5) /hpf Urine Bacteria (FEW) /hpf Urine Mucus (FEW) /hpf Influenza Type A RNA Negative (NEGATIVE) RSV RNA (INAAT) Negative (NEGATIVE) Influenza Type B RNA Negative (NEGATIVE) SARS-CoV-2 RNA (GAY) Negative (NEGATIVE) 09/25/21 Range/Units 19:15 WBC (3.98-10.04) K/mm3 RBC (3.98-5.22) M/mm3 Hgb (11.2-15.7) gm/dl Hct (34.1-44.9) % MCV (79.4-94.8) fl MCH (25.6-32.2) pg MCHC (32.2-35.5) g/dl RDW Std Deviation (36.4-46.3) fL Plt Count (182-369) K/mm3 MPV (9.4-12.3) fl Neut % (Auto) (34.0-71.1) % Lymph % (Auto) (19.3-51.7) % [place] % (Auto) (4.7-12.5) % Eos % (Auto) (0.7-5.8) Baso % (Auto) (0.1-1.2) % Neut # (Auto) (1.56-6.13) K/mm3 Lymph # (Auto) (1.18-3.74) K/mm3 [place] # (Auto) (0.24-0.36) K/mm3 Eos # (Auto) (0.04-0.36) K/mm3 Baso # (Auto) (0.01-0.08) K/mm3 Sodium (136-145) mEq/L Potassium (3.5-5.1) mEq/L Chloride (98-107) mEq/L Carbon Dioxide (21-32) mEq/L Anion Gap (5-15) BUN (7-18) mg/dL Creatinine (0.55-1.02) mg/dL Est Cr Clr Drug Dosing mL/min Estimated GFR (MDRD) (>60) mL/min BUN/Creatinine Ratio (14-18) Glucose (70-99) mg/dL Calcium (8.5-10.1) mg/dL Total Bilirubin (0.2-1.0) mg/dL AST (15-37) U/L ALT (14-59) U/L Alkaline Phosphatase (46-116) U/L C-Reactive Protein (<1.0) mg/dL Total Protein (6.4-8.2) g/dl Albumin (3.4-5.0) g/dl Globulin gm/dL Albumin/Globulin Ratio (1-2) Lipase (73-393) U/L Urine Color Yellow (Yellow) Urine Appearance Slt cloudy H (Clear) Urine pH 6.5 (5.0-8.0) Ur Specific [place] 1.025 (1.005-1.030) Urine Protein 1+ H (Negative) Urine Glucose (UA) Negative (Negative) Urine Ketones 1+ H (Negative) Urine Occult Blood Negative (Negative) Urine Nitrite Negative (Negative) Urine Bilirubin 1+ H (Negative) Urine Urobilinogen 1.0 (0.2-1.0) Ur Leukocyte Esterase Negative (Negative) Urine RBC 0-5 (0-5) /hpf Urine WBC 5-10 H (0-5) /hpf Ur Squamous Epith Cells 10-20 H (0-5) /hpf Urine Bacteria Moderate H (FEW) /hpf Urine Mucus Moderate H (FEW) /hpf Influenza Type A RNA (NEGATIVE) RSV RNA (INAAT) (NEGATIVE) Influenza Type B RNA (NEGATIVE) SARS-CoV-2 RNA (GAY) (NEGATIVE) Meds: Medications Generic Name Dose Route Start Last Admin Trade Name Freq PRN Reason Stop Dose Admin Sodium Chloride 10 ml 09/25/21 19:01 09/25/21 19:17 Sodium Chloride 0.9% 10 Ml Syringe FLUSH 10 ml ASDIRECTED PRN Administration Keep Vein Open Discontinued Medications Generic Name Dose Route Start Last Admin Trade Name Freq PRN Reason Stop Dose Admin Dicyclomine HCl 20 mg 09/25/21 20:00 09/25/21 20:14 Dicyclomine 10 Mg Cap PO 09/25/21 20:01 20 mg ONETIME ONE Administration Sodium Chloride 1,000 mls @ 999 mls/hr 09/25/21 19:01 09/25/21 19:17 Normal Saline IV 09/25/21 20:01 999 mls/hr NOW STA Administration Ondansetron HCl 4 mg 09/25/21 19:01 09/25/21 19:17 Ondansetron 4 Mg/2 Ml Sdv IVPUSH 09/25/21 19:02 4 mg ONETIME ONE Administration - Re-Assessments/Exams Free Text/Narrative Re-Assessment/Exam: Patient is a 20-year-old female presenting to the emergency department with complaints of nausea, vomiting, diarrhea, and generalized abdominal discomfort. Symptoms began around 5 AM this morning. She has had known contact with individuals suffering from gastroenteritis. Exam is unremarkable. She has no tenderness to her abdomen. I have ordered blood work, urinalysis. I will give her 1 L bolus of normal saline, and Zofran. 09/25/21 20:04 Hematology is overall unremarkable. Urinalysis negative for infection., Covid and influenza are negative. Patient has had no further vomiting. Continues to complain of some abdominal discomfort. We will give her a dose of dicyclomine 20 mg orally and have her sip on fluids to see if she can tolerate them. 09/25/21 21:00 Patient is feeling better and has been tolerating oral liquids without any further vomiting. We will discharge her home with prescription for Zofran and Bentyl. Discussed with patient that bentyl is contraindicated with and that if she takes the medication she must pump and dump for 24 hours as it can cause sedation and respiratory depression in the infant. She reports that she has enough milk in the freezer to allow this and would like to receive the medication. Recommend clear liquid diet for 24 to 72 hours and then advance as tolerated. Discharge instructions as documented. Departure - Departure Time of Disposition: 21:01 Disposition: Home, Self-Care 01 Condition: Good Clinical Impression: Gastroenteritis - Discharge Information *PRESCRIPTION DRUG MONITORING PROGRAM REVIEWED*: No *COPY OF PRESCRIPTION DRUG MONITORING REPORT IN PATIENT TAI: No Prescriptions: Dicyclomine [Bentyl] 20 mg PO Q8H PRN #10 tab PRN Reason: Abdominal Pain Ondansetron [Zofran ODT] 4 mg PO Q6H PRN #10 tab.dis PRN Reason: Nausea/Vomiting Instructions: Viral Gastroenteritis, Adult, [id number] Referrals: Arleen Khalil NP [Primary Care Provider] - Forms: ED Department Discharge Additional Instructions: Zofran as needed for nausea. Use the Bentyl (dicyclomine) as needed for abdominal pain. Do not breast-feed for 24 hours after taking a dose of this medication as it can be harmful to the infant. You should pump and discard the breastmilk until it has been 24 hours since your last dose. Maintain clear liquid diet for the next 24 to 72 hours then slowly advance as tolerated. Return to ER for any new or worsening symptoms. Sepsis Event Note (ED) - Focused Exam Vital Signs: Vital Signs Temp Pulse Resp BP Pulse Ox 09/25/21 18:12 97.5 F 100 18 136/80 97 - My Orders Last 24 Hours: My Active Orders 09/25/21 19:01 Sodium Chloride 0.9% [Saline Flush] 10 ml FLUSH ASDIRECTED PRN Peripheral IV Insertion Adult [OM.PC] Stat 09/25/21 19:02 Peripheral IV Care [RC] . DIRECTED - Assessment/Plan Last 24 Hours: My Active Orders 09/25/21 19:01 Sodium Chloride 0.9% [Saline Flush] 10 ml FLUSH ASDIRECTED PRN Peripheral IV Insertion Adult [OM.PC] Stat 09/25/21 19:02 Peripheral IV Care [RC] . DIRECTED
== END 2021-09-25 21:29 | disposition home or self-care (01) ==
LOC: JD.ED 17:56
DX: K52.9 Noninfective gastroenteritis and colitis, unspecified (principal); D64.9 Anemia, unspecified; E66.9 Obesity, unspecified; Z68.41 Body mass index [BMI] 40.0-44.9, adult; Z91.018 Allergy to other foods; Z91.013 Allergy to seafood; Z88.1 Allergy status to other antibiotic agents; Z79.899 Other long term (current) drug therapy; Z20.822 Contact with and (suspected) exposure to COVID-19
CPT/HCPCS: 0241U; 36415; 80053; 81001; 83690; 85025; 86140; 96374; 99283; 99284-25; A9270-GY; J2405; J7030

== ENCOUNTER 2022-02-17 13:01 | Emergency (ER) | payer BC, MEDICAID, OTHER ==
[2022-02-17] MEDS ORDERED: Albuterol 6.7 GM Inhaler INH ONE (13:53)
[2022-02-17] MEDS ORDERED: Benzonatate 100 MG Cap PO ONE (13:53)
[2022-02-17 14:26] LABS: CORONAVIRUS COVID-19 NAA NEGATIVE (NEGATIVE)
== END 2022-02-17 15:50 | disposition home or self-care (01) ==
LOC: JD.ED 13:01
DX: J06.9 Acute upper respiratory infection, unspecified (principal); B80 Enterobiasis; K21.9 Gastro-esophageal reflux disease without esophagitis; E66.9 Obesity, unspecified; Z68.30 Body mass index [BMI] 30.0-30.9, adult; Z91.013 Allergy to seafood; Z91.018 Allergy to other foods; Z88.1 Allergy status to other antibiotic agents; Z79.899 Other long term (current) drug therapy; Z20.822 Contact with and (suspected) exposure to COVID-19
CPT/HCPCS: 0240U; 36415; 71045; 80053; 81003; 81025; 83735; 85025; 86140; 99285; A9270

== ENCOUNTER 2022-03-07 00:08 | Emergency (ER) | payer MEDICAID ==
[2022-03-07 01:33] LABS: CORONAVIRUS COVID-19 NAA NEGATIVE (NEGATIVE)
[2022-03-07] MEDS ORDERED: Azithromycin 250 MG Tab PO ONE (02:01)
== END 2022-03-07 02:10 | disposition home or self-care (01) ==
LOC: JD.ED 00:08
DX: J40 Bronchitis, not specified as acute or chronic (principal); Z20.822 Contact with and (suspected) exposure to COVID-19; Z91.013 Allergy to seafood; Z91.018 Allergy to other foods; Z88.8 Allergy status to other drugs, medicaments and biological substances
CPT/HCPCS: 0240U; 99283; A9270

== ENCOUNTER 2022-05-02 22:43 | Emergency (ER) | payer MEDICAID ==
[2022-05-03 00:20] LABS: STREP A BY PCR NOT DETECTED (NOT DETECT)
[2022-05-03 00:32] LABS: CORONAVIRUS COVID-19 NAA POSITIVE (NEGATIVE)
== END 2022-05-03 01:49 | disposition home or self-care (01) ==
LOC: JD.ED 22:43
DX: U07.1 COVID-19 (principal); E66.9 Obesity, unspecified; Z68.41 Body mass index [BMI] 40.0-44.9, adult; Z91.012 Allergy to eggs; Z91.013 Allergy to seafood; Z88.8 Allergy status to other drugs, medicaments and biological substances; Z86.16 Personal history of COVID-19; Z90.49 Acquired absence of other specified parts of digestive tract
CPT/HCPCS: 87651-QW; 99283; 99284; U0002

== ENCOUNTER 2023-02-27 09:09 | Emergency (ER) | payer MEDICAID ==
[2023-02-27 10:11] LABS: CORONAVIRUS COVID-19 NAA NEGATIVE (NEGATIVE); INFLUENZA A NAA NEGATIVE (NEGATIVE); RESPIRATORY SYNCYTIAL VIR NAA NEGATIVE (NEGATIVE)
[2023-02-27] MEDS ORDERED: Penicillin G Benzathine 1,200,000 Units/2 ML Syringe IM ONE (10:53)
== END 2023-02-27 11:53 | disposition home or self-care (01) ==
LOC: JD.ED 09:09
DX: J03.00 Acute streptococcal tonsillitis, unspecified (principal); Z91.018 Allergy to other foods; Z91.013 Allergy to seafood; Z88.1 Allergy status to other antibiotic agents; Z20.822 Contact with and (suspected) exposure to COVID-19
CPT/HCPCS: 0241U; 87651; 96372; 99284; J0561; 99283

== ENCOUNTER 2023-11-12 21:36 | Emergency (ER) | payer MEDICAID, OTHER ==
[2023-11-12 22:18] LABS: APPEARANCE,URINE CLEAR (Clear); BILIRUBIN,URINE NEGATIVE (Negative); COLOR,URINE YELLOW (Yellow); GLUCOSE,URINE NEGATIVE (Negative); KETONES,URINE NEGATIVE (Negative); LEUKOCYTE ESTERASE,URINE NEGATIVE (Negative); NITRITE,URINE NEGATIVE (Negative); OCCULT BLOOD,URINE TRACE-INTACT (Negative); PROTEIN,URINE NEGATIVE (Negative)
[2023-11-12 22:32] LABS: BACTERIA,URINE FEW /hpf (FEW); MUCUS,URINE MANY /hpf (FEW); RBC,URINE 0-5 /hpf (0-5); WBC,URINE 0-5 /hpf (0-5)
== END 2023-11-12 22:50 | disposition home or self-care (01) ==
LOC: JD.ED 21:36
DX: N93.9 Abnormal uterine and vaginal bleeding, unspecified (principal); E11.9 Type 2 diabetes mellitus without complications; E66.9 Obesity, unspecified; Z86.16 Personal history of COVID-19; Z90.49 Acquired absence of other specified parts of digestive tract; Z91.013 Allergy to seafood; Z88.8 Allergy status to other drugs, medicaments and biological substances; Z91.018 Allergy to other foods; Z68.42 Body mass index [BMI] 45.0-49.9, adult
CPT/HCPCS: 81001; 81025; 99283; 99284

== ENCOUNTER 2024-05-07 12:46 | Emergency (ER) | payer SELFPAY ==
[2024-05-07 13:54] LABS: BASOPHILS PERCENT AUTO 0.2 % (0.0-1.0); EOSINOPHILS ABSOLUTE AUTO 0.1 K/mm3 (0.0-0.4); EOSINOPHILS PERCENT AUTO 0.5 % (0.0-6.0); HEMATOCRIT 34.3 % (37.0-47.0); IMMATURE GRAN ABSOLUTE AUTO 0.02 K/mm3 (0.00-0.05); IMMATURE GRAN PERCENT AUTO 0.2 % (0.0-0.4); LYMPHOCYTES ABSOLUTE AUTO 3.6 K/mm3 (1.0-4.8); LYMPHOCYTES PERCENT AUTO 38.1 % (24.0-44.0); MEAN CORPUSCULAR HEMOGLOBIN 26.8 pg (28.0-32.0); MEAN CORPUSCULAR HGB CONC 32.1 g/dl (32.0-36.0); MEAN CORPUSCULAR VOLUME 83.5 fl (83.0-99.0); MEAN PLATELET VOLUME 9.6 fl (9.4-12.3); MONOCYTES ABSOLUTE AUTO 0.6 K/mm3 (0.0-0.8); MONOCYTES PERCENT AUTO 5.8 % (0.0-8.0); NEUTROPHILS ABSOLUTE AUTO 5.2 K/mm3 (1.8-7.7); NEUTROPHILS PERCENT AUTO 55.2 % (41.0-71.0); PLATELET COUNT,PLT 355 K/mm3 (150-400); RED BLOOD CELL COUNT 4.11 M/mm3 (4.10-5.30); WHITE BLOOD CELL COUNT,WBC 9.44 K/mm3 (3.9-11.3)
[2024-05-07 14:18] LABS: APPEARANCE,URINE SLT CLOUDY (Clear); BILIRUBIN,URINE NEGATIVE (Negative); COLOR,URINE YELLOW (Yellow); GLUCOSE,URINE NEGATIVE (Negative); KETONES,URINE NEGATIVE (Negative); LEUKOCYTE ESTERASE,URINE 1+ (Negative); NITRITE,URINE POSITIVE (Negative); OCCULT BLOOD,URINE NEGATIVE (Negative); PH,URINE 6.5 (5.0-8.0); PROTEIN,URINE NEGATIVE (Negative)
[2024-05-07 14:20] LABS: A/G RATIO 0.7 (1-2); ALBUMIN 3.4 g/dl (3.4-5.0); ANION GAP 12.6 (5-15); BILIRUBIN TOTAL 0.7 mg/dL (0.2-1.0); C-REACTIVE PROTEIN 2.1 mg/dL (<0.30); CALCIUM 9.1 mg/dL (8.5-10.1); CREATININE 0.9 mg/dL (0.55-1.02); EST CRCL DRUG DOSING (CG) 92.92 mL/min; POTASSIUM,K 3.6 mEq/L (3.5-5.1); PROTEIN TOTAL,TP 8.1 g/dl (6.4-8.2)
[2024-05-07 14:53] LABS: RBC,URINE 0-5 /hpf (0-5)
[2024-05-07 14:54] LABS: BACTERIA,URINE MANY /hpf (FEW); MUCUS,URINE FEW /hpf (FEW)
[2024-05-07] MEDS: Amoxicillin/Clavulanate K 875-125 MG Tab PO ONE (16:23)
== END 2024-05-07 17:02 | disposition home or self-care (01) ==
LOC: JD.ED 12:46
DX: N30.00 Acute cystitis without hematuria (principal); Z32.01 Encounter for pregnancy test, result positive; Z86.16 Personal history of COVID-19; Z90.49 Acquired absence of other specified parts of digestive tract; Z91.048 Other nonmedicinal substance allergy status; Z88.8 Allergy status to other drugs, medicaments and biological substances; Z91.013 Allergy to seafood
CPT/HCPCS: 36415; 76817; 80053; 81001; 81025; 84702; 85025; 86140; 87086; 99284; A9270; 87088; 87186; 99283

== ENCOUNTER 2024-06-12 22:37 | Emergency (ER) | payer SELFPAY ==
[2024-06-12] MEDS ORDERED: Sodium Chloride 0.9% 10 ML Syringe FLUSH PRN (23:08)
[2024-06-12] MEDS ORDERED: Sodium Chloride 0.9% 1,000 ML IV ONE (23:08)
[2024-06-12] MEDS ORDERED: Ondansetron 4 MG/2 ML SDV IVPUSH ONE (23:08)
[2024-06-13 00:06] LABS: BASOPHILS PERCENT AUTO 0.2 % (0.0-1.0); EOSINOPHILS PERCENT AUTO 0.4 % (0.0-6.0); HEMATOCRIT 34.8 % (37.0-47.0); HEMOGLOBIN 11.2 gm/dl (12.0-16.0); IMMATURE GRAN ABSOLUTE AUTO 0.02 K/mm3 (0.00-0.05); IMMATURE GRAN PERCENT AUTO 0.2 % (0.0-0.4); LYMPHOCYTES ABSOLUTE AUTO 3.2 K/mm3 (1.0-4.8); LYMPHOCYTES PERCENT AUTO 31.7 % (24.0-44.0); MEAN CORPUSCULAR HEMOGLOBIN 26.9 pg (28.0-32.0); MEAN CORPUSCULAR HGB CONC 32.2 g/dl (32.0-36.0); MEAN CORPUSCULAR VOLUME 83.5 fl (83.0-99.0); MEAN PLATELET VOLUME 9.1 fl (9.4-12.3); MONOCYTES ABSOLUTE AUTO 0.6 K/mm3 (0.0-0.8); MONOCYTES PERCENT AUTO 6.1 % (0.0-8.0); NEUTROPHILS ABSOLUTE AUTO 6.2 K/mm3 (1.8-7.7); NEUTROPHILS PERCENT AUTO 61.4 % (41.0-71.0); PLATELET COUNT,PLT 375 K/mm3 (150-400); RED BLOOD CELL COUNT 4.17 M/mm3 (4.10-5.30); WHITE BLOOD CELL COUNT,WBC 10.06 K/mm3 (3.9-11.3)
[2024-06-13] MEDS ORDERED: Prochlorperazine 10 MG/2 ML SDV IM ONE (00:21)
[2024-06-13 00:48] LABS: A/G RATIO 0.7 (1-2); ALBUMIN 3.6 g/dl (3.4-5.0); ANION GAP 15.1 (5-15); BILIRUBIN TOTAL 0.7 mg/dL (0.2-1.0); BUN/CREATININE RATIO 13.8 (14-18); C-REACTIVE PROTEIN 2.26 mg/dL (<0.30); CALCIUM 9.4 mg/dL (8.5-10.1); CREATININE 0.8 mg/dL (0.55-1.02); EST CRCL DRUG DOSING (CG) 104.54 mL/min; MAGNESIUM 1.8 mg/dL (1.8-2.4); POTASSIUM,K 3.1 mEq/L (3.5-5.1); PROTEIN TOTAL,TP 8.6 g/dl (6.4-8.2)
== END 2024-06-13 01:56 | disposition home or self-care (01) ==
LOC: JD.ED 22:37
DX: O21.1 Hyperemesis gravidarum with metabolic disturbance (principal); Z3A.10 10 weeks gestation of pregnancy; Z91.018 Allergy to other foods; Z91.013 Allergy to seafood; Z88.8 Allergy status to other drugs, medicaments and biological substances; Z86.16 Personal history of COVID-19; Z90.49 Acquired absence of other specified parts of digestive tract
CPT/HCPCS: 36415; 80053; 83735; 84702; 85025; 86140; 96372; 99284

== ENCOUNTER 2024-09-18 16:22 | Emergency (ER) | payer SELFPAY ==
[2024-09-18] MEDS ORDERED: Sodium Chloride 0.9% 10 ML Syringe FLUSH PRN (17:12)
[2024-09-18] MEDS: Sodium Chloride 0.9% 1,000 ML IV STA (17:25)
[2024-09-18 17:31] LABS: BASOPHILS PERCENT AUTO 0.1 % (0.0-1.0); EOSINOPHILS ABSOLUTE AUTO 0.1 K/mm3 (0.0-0.4); EOSINOPHILS PERCENT AUTO 0.8 % (0.0-6.0); HEMATOCRIT 31.6 % (37.0-47.0); HEMOGLOBIN 10.5 gm/dl (12.0-16.0); IMMATURE GRAN ABSOLUTE AUTO 0.02 K/mm3 (0.00-0.05); IMMATURE GRAN PERCENT AUTO 0.2 % (0.0-0.4); LYMPHOCYTES ABSOLUTE AUTO 2.8 K/mm3 (1.0-4.8); MEAN CORPUSCULAR HEMOGLOBIN 28.4 pg (28.0-32.0); MEAN CORPUSCULAR HGB CONC 33.2 g/dl (32.0-36.0); MEAN CORPUSCULAR VOLUME 85.4 fl (83.0-99.0); MEAN PLATELET VOLUME 9.9 fl (9.4-12.3); MONOCYTES ABSOLUTE AUTO 0.5 K/mm3 (0.0-0.8); MONOCYTES PERCENT AUTO 5.6 % (0.0-8.0); NEUTROPHILS ABSOLUTE AUTO 5.6 K/mm3 (1.8-7.7); NEUTROPHILS PERCENT AUTO 62.3 % (41.0-71.0); PLATELET COUNT,PLT 333 K/mm3 (150-400); WHITE BLOOD CELL COUNT,WBC 8.99 K/mm3 (3.9-11.3)
[2024-09-18 18:02] LABS: A/G RATIO 0.6 (1-2); ALBUMIN 2.7 g/dl (3.4-5.0); BILIRUBIN TOTAL 0.4 mg/dL (0.2-1.0); BUN/CREATININE RATIO 8.6 (14-18); CALCIUM 8.8 mg/dL (8.5-10.1); CREATININE 0.7 mg/dL (0.55-1.02); EST CRCL DRUG DOSING (CG) 119.47 mL/min; PROTEIN TOTAL,TP 7.3 g/dl (6.4-8.2)
[2024-09-18 19:28] LABS: APPEARANCE,URINE SLT CLOUDY (Clear); BILIRUBIN,URINE NEGATIVE (Negative); COLOR,URINE DARK YELLOW (Yellow); GLUCOSE,URINE NEGATIVE (Negative); KETONES,URINE 3+ (Negative); LEUKOCYTE ESTERASE,URINE TRACE (Negative); NITRITE,URINE NEGATIVE (Negative); OCCULT BLOOD,URINE NEGATIVE (Negative); PH,URINE 6.5 (5.0-8.0); PROTEIN,URINE 1+ (Negative)
[2024-09-18 19:38] LABS: BACTERIA,URINE MODERATE /hpf (FEW); MUCUS,URINE MODERATE /hpf (FEW); RBC,URINE 0-5 /hpf (0-5)
== END 2024-09-18 20:04 | disposition home or self-care (01) ==
LOC: JD.ED 16:22
DX: O99.282 Endocrine, nutritional and metabolic diseases complicating pregnancy, second trimester (principal); E87.6 Hypokalemia; O99.891 Other specified diseases and conditions complicating pregnancy; R10.84 Generalized abdominal pain; E11.9 Type 2 diabetes mellitus without complications; E66.9 Obesity, unspecified; Z86.16 Personal history of COVID-19; Z90.49 Acquired absence of other specified parts of digestive tract; Z88.8 Allergy status to other drugs, medicaments and biological substances; Z91.013 Allergy to seafood; Z91.018 Allergy to other foods; Z3A.24 24 weeks gestation of pregnancy
CPT/HCPCS: 36415; 80053; 81001; 83690; 85025; 96360; 99284; J7030

== ENCOUNTER 2024-11-01 10:03 | Emergency (ER) | payer SELFPAY ==
[2024-11-01] MEDS ORDERED: Sodium Chloride 0.9% 10 ML Syringe FLUSH PRN (11:18)
[2024-11-01] MEDS: Ondansetron 4 MG/2 ML SDV IVPUSH ONE (11:41)
[2024-11-01] MEDS: Acetaminophen 325 MG Tab PO ONE (11:41)
[2024-11-01] MEDS: Sodium Chloride 0.9% 1,000 ML IV SCH (11:49)
[2024-11-01 12:50] LABS: BASOPHILS PERCENT AUTO 0.1 % (0.0-1.0); EOSINOPHILS PERCENT AUTO 0.4 % (0.0-6.0); HEMATOCRIT 30.6 % (37.0-47.0); HEMOGLOBIN 9.9 gm/dl (12.0-16.0); IMMATURE GRAN ABSOLUTE AUTO 0.02 K/mm3 (0.00-0.05); IMMATURE GRAN PERCENT AUTO 0.3 % (0.0-0.4); LYMPHOCYTES ABSOLUTE AUTO 1.7 K/mm3 (1.0-4.8); MEAN CORPUSCULAR HEMOGLOBIN 28.2 pg (28.0-32.0); MEAN CORPUSCULAR HGB CONC 32.4 g/dl (32.0-36.0); MEAN CORPUSCULAR VOLUME 87.2 fl (83.0-99.0); MEAN PLATELET VOLUME 9.8 fl (9.4-12.3); MONOCYTES ABSOLUTE AUTO 0.7 K/mm3 (0.0-0.8); MONOCYTES PERCENT AUTO 8.6 % (0.0-8.0); NEUTROPHILS ABSOLUTE AUTO 5.2 K/mm3 (1.8-7.7); NEUTROPHILS PERCENT AUTO 68.6 % (41.0-71.0); PLATELET COUNT,PLT 273 K/mm3 (150-400); RED BLOOD CELL COUNT 3.51 M/mm3 (4.10-5.30); WHITE BLOOD CELL COUNT,WBC 7.58 K/mm3 (3.9-11.3)
[2024-11-01 13:16] LABS: A/G RATIO 0.6 (1-2); ALBUMIN 2.5 g/dl (3.4-5.0); ANION GAP 13.1 (5-15); BILIRUBIN TOTAL 0.4 mg/dL (0.2-1.0); BUN/CREATININE RATIO 8.3 (14-18); CALCIUM 8.5 mg/dL (8.5-10.1); CREATININE 0.6 mg/dL (0.55-1.02); EST CRCL DRUG DOSING (CG) 139.38 mL/min; MAGNESIUM 1.6 mg/dL (1.8-2.4); POTASSIUM,K 3.1 mEq/L (3.5-5.1); PROTEIN TOTAL,TP 6.8 g/dl (6.4-8.2)
[2024-11-01] MEDS: HYDROmorphone 0.5 MG/0.5 ML Syringe IVPUSH ONE ×2 (13:30→14:38)
== END 2024-11-01 15:00 | disposition home or self-care (01) ==
LOC: JD.ED 10:03
DX: O99.891 Other specified diseases and conditions complicating pregnancy (principal); R07.89 Other chest pain; O99.212 Obesity complicating pregnancy, second trimester; E66.9 Obesity, unspecified; Z91.013 Allergy to seafood; Z91.018 Allergy to other foods; Z88.8 Allergy status to other drugs, medicaments and biological substances; Z79.899 Other long term (current) drug therapy; Z86.16 Personal history of COVID-19; Z90.49 Acquired absence of other specified parts of digestive tract; Z68.41 Body mass index [BMI] 40.0-44.9, adult; Z3A.21 21 weeks gestation of pregnancy; Z3A.24 24 weeks gestation of pregnancy
CPT/HCPCS: 36415; 71045; 80053; 83735; 84484; 85025; 93005; 96361; 96374; 96375; 96376; 99285; A9270; J2405; J7030

== ENCOUNTER 2025-01-08 23:34 | Inpatient (IN) | payer SELFPAY ==
[2025-01-09] MEDS ORDERED: Lidocaine 1% 50 ML MDV INJECT PRN (00:03)
[2025-01-09] MEDS ORDERED: Oxytocin/0.9 % Sodium Chloride 30 UNIT/500 ML BAG IV SCH (00:15)
[2025-01-09] MEDS: Lactated Ringers 1,000 ML IV SCH (00:20)
[2025-01-09] MEDS: Nalbuphine 10 MG/1 ML Vial IVPUSH PRN (00:20)
[2025-01-09 00:30] LABS: BASOPHILS PERCENT AUTO 0.2 % (0.0-1.0); EOSINOPHILS ABSOLUTE AUTO 0.1 K/mm3 (0.0-0.4); EOSINOPHILS PERCENT AUTO 0.6 % (0.0-6.0); HEMATOCRIT 27.5 % (37.0-47.0); HEMOGLOBIN 8.6 gm/dl (12.0-16.0); IMMATURE GRAN ABSOLUTE AUTO 0.05 K/mm3 (0.00-0.05); IMMATURE GRAN PERCENT AUTO 0.4 % (0.0-0.4); LYMPHOCYTES PERCENT AUTO 24.5 % (24.0-44.0); MEAN CORPUSCULAR HEMOGLOBIN 26.1 pg (28.0-32.0); MEAN CORPUSCULAR HGB CONC 31.3 g/dl (32.0-36.0); MEAN CORPUSCULAR VOLUME 83.3 fl (83.0-99.0); MONOCYTES ABSOLUTE AUTO 0.8 K/mm3 (0.0-0.8); MONOCYTES PERCENT AUTO 6.8 % (0.0-8.0); NEUTROPHILS ABSOLUTE AUTO 8.3 K/mm3 (1.8-7.7); NEUTROPHILS PERCENT AUTO 67.5 % (41.0-71.0); PLATELET COUNT,PLT 302 K/mm3 (150-400); WHITE BLOOD CELL COUNT,WBC 12.29 K/mm3 (3.9-11.3)
[2025-01-09] MEDS: Calcium Carbonate 500 MG Tab.Chew PO ONE (03:28)
[2025-01-09] MEDS: Oxytocin/0.9 % Sodium Chloride 30 UNIT/500 ML BAG IV SCH (07:27)
[2025-01-09] MEDS: Ondansetron 4 MG/2 ML SDV IVPUSH PRN (07:55)
[2025-01-09] MEDS ORDERED: diphenhydrAMINE 50 MG/ML SDV IVPUSH PRN (11:05)
[2025-01-09] MEDS ORDERED: ePHEDrine 50 MG/ML SDV IM PRN (11:05)
[2025-01-09] MEDS ORDERED: Ropivacaine 200 MG in Premix Bag 1 BAG EPIDUR PRN (11:05)
[2025-01-09] MEDS ORDERED: ePHEDrine 50 MG/ML SDV IVPUSH PRN (11:05)
[2025-01-09] MEDS: Ibuprofen 600 MG Tab PO SCH (12:26)
[2025-01-09] MEDS: Benzocaine/Menthol 20%-0.5% Spray 78 GM Cannister TOP PRN (13:34)
[2025-01-09] MEDS: Witch Hazel Medicated Pads 40/Jar TOP PRN (13:34)
[2025-01-09] MEDS: Tranexamic Acid 1,000 MG/10 ML Vial ONE (14:45)
[2025-01-09] MEDS: Docusate Sodium 100 MG Cap PO PRN (20:10)
[2025-01-09] MEDS: Acetaminophen 325 MG Tab PO PRN (20:10)
== END 2025-01-10 14:00 | disposition home or self-care (01) | DRG 807 ==
LOC: JD.OBCHECK 23:34 → JD.OB 23:35 → JD.OBCHECK 01-09 00:05 → JD.OB 01-09 00:05 → OBSVTOIN 01-09 11:28 → JD.OB 01-09 11:29
PROVIDERS: ADMIT Obstetrics & Gynecology; ATTEND Obstetrics & Gynecology
PROC: 10E0XZZ Delivery of Products of Conception, External Approach (ICD-10-PCS; principal; 2025-01-09)
DX: O99.02 Anemia complicating childbirth (principal); Z3A.39 39 weeks gestation of pregnancy; Z37.0 Single live birth; O99.214 Obesity complicating childbirth; Z90.49 Acquired absence of other specified parts of digestive tract
CPT/HCPCS: 36415; 59025; 59409; 85025; 86592; 86762; 86850; 86900; 86901; A9270-GY; J2300; J2405; J7120; J7999

== ENCOUNTER 2025-04-20 20:42 | Emergency (ER) | payer BC, MEDICAID ==
[2025-04-20] MEDS: Ketorolac 60 MG/2 ML SDV IM ONE (21:41)
== END 2025-04-20 21:53 | disposition home or self-care (01) ==
LOC: JD.ED 20:42
DX: M25.562 Pain in left knee (principal); Z86.16 Personal history of COVID-19; Z90.49 Acquired absence of other specified parts of digestive tract; Z88.8 Allergy status to other drugs, medicaments and biological substances; Z91.013 Allergy to seafood; Z91.010 Allergy to peanuts; Z91.018 Allergy to other foods; Z79.899 Other long term (current) drug therapy
CPT/HCPCS: 73562; 96372; 99284; J1885; 99283